=== PATIENT | female | born 1970 | race American Indian/Alaskan Native ===

== ENCOUNTER 2017-01-23 18:38 | Inpatient (IN) | payer MEDICARE, MEDICAID ==
[2017-01-23 18:38] VITALS: BMI 41.1
[2017-01-23 19:29] LABS: BASO # 0.03 K/mm3 (0.0-2.0); BASO % 0.5 % (0.0-3.0); EOS # 0.3 (0.0-0.7); EOS % 4.8 % (1.5-5.0); GRAN # 3.89 (1.4-6.5); GRAN % 59.7 % (50.0-68.0); HEMATOCRIT 36.3 % (36.0-48.0); LYMPH # 1.7 (1.2-3.4); LYMPH % 26.5 % (22.0-35.0); MEAN CELL VOLUME 80.5 fl (80.0-105.0); MEAN CORPUSCULAR HEMOGLOBIN 25.3 pg (25.0-35.0); MEAN CORPUSCULAR HGB CONC 31.4 g/dl (31.0-37.0); MONO # 0.6 (0.1-0.6); MONO % 8.5 % (1.0-6.0); RED CELL DISTRIBUTION WIDTH 15.6 % (11.5-14.5); WHITE BLOOD COUNT 6.5 10^3/ul (4.5-11.0)
[2017-01-23 19:41] LABS: BLOOD UREA NITROGEN 9 mg/dL (7-21); CALCIUM 8.7 mg/dL (8.4-10.5); CARBON DIOXIDE 20 mmol/L (21-33); CHLORIDE 109 mmol/L (98-107); GFR AFRICAN-AMERICAN > 60; GLUCOSE,RANDOM 99 mg/dL (70-110); POTASSIUM 4.5 mmol/L (3.6-5.0); SODIUM 138 mmol/L (132-148)
[2017-01-23 19:44] LABS: INR 1.04 (0.93-1.08); PARTIAL THROMBOPLASTIN TIME 34.2 Seconds (25.1-36.5)
[2017-01-23] MEDS: Albuterol-Ipratrop 3 mg / 0.5 (3 ml) UD IH SCH ×3 (19:44→20:31)
--- NOTE | 2017-01-23 19:45 | ED PDOC ---
Arrival/HPI - General Chief Complaint: Chest Pain Time Seen by Provider: 01/23/17 19:01 Historian: Patient - History of Present Illness Narrative History of Present Illness (Text): 01/23/17 19:05 A 46 year old female, whose past medical history includes Lupus, COPD, asthma, renal failure, Raynaud's phenomenon, spinal stenosis, psychosis, DVT with IVC filter, presents to the emergency department complaining of wheezing, cough, shortness of breath, and post tussive chest pain for 6 days. Patient reports she visited Urgent Care today and was treated, although patient still had symptoms. Patient was to be admitted but she refused and left. Patient attempted to use nebulizer treatments at home but had little to no relief and decided to come here instead. Patient notes also experiencing some body aches and chills, but denies of any fever, or any other complaints at this time. PMD: Dr. Jordna Time/Duration: < week (6 days) Symptom Onset: Sudden Symptom Course: Unchanged Past Medical History - Provider Review Nursing Documentation Reviewed: Yes - Infectious Disease Hx of Infectious Diseases: None - Tetanus Immunization Tetanus Immunization: Up to Date - Reproductive Menopause: No - Cardiac Hx Cardiac Disorders: No Hx Pacemaker: No - Pulmonary Hx Respiratory Disorders: Yes Hx Asthma: Yes Hx Chronic Obstructive Pulmonary Disease (COPD): Yes - Neurological Hx Neurological Disorder: No Hx Paralysis: No - HEENT Hx HEENT Disorder: No - Renal Hx Renal Disorder: Yes Hx Renal Failure: Yes - Endocrine/Metabolic Hx Endocrine Disorders: Yes Hx Systemic Lupus Erythematosus: Yes - Hematological/Oncological Hx Blood Disorders: Yes Hx Anemia: Yes Hx Blood Transfusions: Yes (2014 WITH PERIODIC IRON INFUSIONS) Hx Blood Transfusion Reaction: No - Integumentary Hx Dermatological Disorder: No - Musculoskeletal/Rheumatological Hx Musculoskeletal Disorders: Yes Hx Falls: Yes - Gastrointestinal Hx Gastrointestinal Disorders: Yes Hx Gall Bladder Disease: Yes Hx Gastroesophageal Reflux: Yes - Genitourinary/Gynecological Hx Genitourinary Disorders: No - Psychiatric Hx Psychophysiologic Disorder: Yes Hx Anxiety: Yes Hx Depression: Yes Hx Emotional Abuse: No Hx Physical Abuse: No Hx Substance Use: No - Surgical History Hx Section: Yes Hx Gastric Bypass Surgery: Yes (2003) Hx Tubal Ligation: Yes Other/Comment: R chest port - Anesthesia Hx Anesthesia: Yes Hx Anesthesia Reactions: No Hx Malignant Hyperthermia: No - Suicidal Assessment Feels Threatened In Home Enviroment: No Family/Social History - Physician Review Nursing Documentation Reviewed: Yes Family/Social History: No Known Family HX Smoking Status: Light Smoker < 10 Cigarettes Daily Hx Alcohol Use: No Hx Substance Use: No Hx Substance Use Treatment: No Allergies/Home Meds Allergies/Adverse Reactions: Allergies No Known Allergies Allergy (Verified 01/23/17 18:53) per patient Home Medications: Home Meds Medication Instructions Recorded Confirmed Vilazodone HCl [Viibryd] 40 mg PO QAM 01/30/12 01/23/17 Methocarbamol [Robaxin] 500 mg PO DAILY PRN 02/07/12 01/23/17 cloNIDine 0.1 mg/24 hr [catapres 0.1 mg TD MON 07/18/12 01/23/17 TTS1 0.1 mg/24 hr] Tizanidine HCl [Zanaflex] 4 mg PO TID 07/30/12 01/23/17 Furosemide [Lasix] 40 mg PO BID 04/10/15 01/23/17 Mycophenolate Mofetil [Cellcept] 500 mg PO BID 04/10/15 01/23/17 Pregabalin [Lyrica] 200 mg PO TID 04/10/15 01/23/17 Quetiapine Fumarate [Seroquel] 200 mg PO HS 04/10/15 01/23/17 Scopolamine [Transderm Scop] 1 patch TD Q72H 04/10/15 01/23/17 Sucralfate [Carafate] 1 gm PO ACHS 04/10/15 01/23/17 Ondansetron [Zofran Odt] 4 mg SL Q6 PRN 01/23/17 01/23/17 Review of Systems - Review of Systems Constitutional: Night Sweats. absent: Fevers Respiratory: SOB, Cough, Wheezing Cardiovascular: Chest Pain (post tussive) Musculoskeletal: Myalgias Physical Exam Vital Signs Reviewed: Yes Vital Signs Temp Pulse Resp BP Pulse Ox 01/23/17 21:01 93 H 19 147/94 H 98 01/23/17 18:50 99.9 F H 98 H 16 159/108 H 95 Temperature: Afebrile Blood Pressure: Normal Pulse: Regular Respiratory Rate: Normal Appearance: Positive for: Other (obese) Pain Distress: None Mental Status: Positive for: Alert and Oriented X 3 - Systems Exam Head: Present: Atraumatic, Normocephalic Pupils: Present: PERRL Extroacular Muscles: Present: EOMI Conjunctiva: Present: Normal Mouth: Present: Moist Mucous Membranes Neck: Present: Normal Range of Motion Respiratory/Chest: Present: Wheezes, Rhonchi (bilaterally), Other (chest wall port) Cardiovascular: Present: Regular Rate and Rhythm, Normal S1, S2. No: Murmurs Abdomen: Present: Normal Bowel Sounds. No: Tenderness, Distention, Peritoneal Signs Back: Present: Normal Inspection Upper Extremity: Present: Normal Inspection. No: Cyanosis, Edema Lower Extremity: No: Edema Neurological: Present: GCS=15, CN II-XII Intact, Speech Normal Skin: Present: Warm, Dry, Normal Color. No: Rashes Psychiatric: Present: Alert, Oriented x 3, Normal Insight, Normal Concentration Medical Decision Making ED Course and Treatment: 01/23/17 19:09 Impression 46 year old female with wheezing, cough, shortness of breath, and chest pain. Physical exam shows patient appears obese, wheezing and rhonchi bilaterally, chest wall port, no lower extremity edema. Differential Diagnosis included but are not limited to: COPD Exacerbation Plan: -- EKG -- Chest X-ray -- Labs -- Blood Culture -- Urinalysis -- Duoneb -- Medrol -- Reassess and disposition Prior Visits: Notes and results from previous visits were reviewed. Patient was last seen in the emergency department on 04/20/2016 for nausea and non-bilious non-bloody vomiting. Patient was discharged home. Progress Notes: Patient improved with treatments but still having symptoms. CXR negative for PNA. Case discussed with Dr. Jordan who will admit under her service for COPD exacerbation. Patient is a known COPD patient with multiple medical issues that needs more than 3 days admission. - Lab Interpretations Lab Results: 01/23/17 19:09 01/23/17 19:09 Lab Results 01/23/17 20:07: Urine Color Yellow, Urine Appearance Clear, Urine pH 6.0, Ur Specific [place] >= 1.030, Urine Protein 100 H, Urine Glucose (UA) Negative, Urine Ketones Negative, Urine Blood Large H, Urine Nitrate Negative, Urine Bilirubin Negative, Urine Urobilinogen 0.2, Ur Leukocyte Esterase Negative, Urine RBC 5 - 10, Urine WBC 1 - 3, Ur Epithelial Cells 10 - 12, Urine Bacteria Large 01/23/17 19:09: Sodium 138, Potassium 4.5, Chloride 109 H, Carbon Dioxide 20 L, Anion Gap 14, BUN 9, Creatinine 1.1, Est GFR ( Amer) > 60, Est GFR (Non- Af Amer) 54, Random Glucose 99, Calcium 8.7, Lactate Dehydrogenase 630, Total Creatine Kinase 188, Troponin I < 0.01, NT-Pro-B Natriuret Pep 165 01/23/17 19:09: PT 11.3, INR 1.04, APTT 34.2 01/23/17 19:09: WBC 6.5, RBC 4.51, Hgb 11.4 L, Hct 36.3, MCV 80.5, MCH 25.3, MCHC 31.4, RDW 15.6 H, Plt Count 248, MPV 11.0, Gran % 59.7, Lymph % (Auto) 26.5 , [place] % (Auto) 8.5 H, Eos % (Auto) 4.8, Baso % (Auto) 0.5, Gran # 3.89, Lymph # 1.7, Am[place] # 0.6, Eos # 0.3, Baso # 0.03 - RAD Interpretation Radiology Orders: 01/23/17 19:23 CHEST PORTABLE [RAD] Stat - Medication Orders Current Medication Orders: Acetaminophen (Tylenol 325mg Tab) 650 mg PO Q4H PRN PRN Reason: Pain, Mild (1-3) Albuterol/Ipratropium (Duoneb 3 Mg/0.5 Mg (3 Ml) Ud) 3 ml IH Q3H PRN PRN Reason: Shortness of Breath Clonidine HCl (Catapres Tts1 0.1 Mg/24 Hr) 1 patch TD MON [facility] Famotidine (Pepcid) 20 mg PO AC [facility] Furosemide (Lasix) 40 mg PO BID [facility] Azithromycin 500 mg/ Sodium (Chloride) 250 mls @ 250 mls/hr IVPB DAILY [facility] PRN Reason: Protocol Stop: 01/31/17 10:01 Methylprednisolone (Solu-Medrol) 40 mg IVP Q12 [facility] Last Admin: 01/23/17 21:58 Dose: 40 mg IVP Administration Document 01/23/17 21:58 SWE (Rec: 01/23/17 21:58 SWE [id number]) Charges for Administration # of IVP Administrations 1 Mycophenolate Mofetil (Cellcept Cap) 500 mg PO BID [facility] Non-Formulary Medication (Vilazodone Hcl [Viibryd]) 40 mg PO QAM [facility] Ondansetron HCl (Zofran Odt) 4 mg SL Q6 PRN PRN Reason: Nausea/Vomiting Ondansetron HCl (Zofran Inj) 4 mg IVP Q4H PRN PRN Reason: Nausea/Vomiting Pantoprazole Sodium (Protonix Ec Tab) 40 mg PO DAILY [facility] Pregabalin (Lyrica) 200 mg PO TID [facility] Quetiapine Fumarate (Seroquel) 200 mg PO HS [facility] Last Admin: 01/23/17 21:57 Dose: 200 mg Scopolamine (Transderm-Scop) 1 patch TD Q72H [facility] Last Admin: 01/23/17 21:58 Dose: 1 patch MAR Transdermal Patch Site Document 01/23/17 21:58 SWE (Rec: 01/23/17 21:58 [id number] Transdermal Patch Site Transdermal Patch Site Behind Left Ear Sucralfate (Carafate Tab) 1 gm PO ACHS [facility] Last Admin: 01/23/17 21:56 Dose: 1 gm Discontinued Medications Albuterol/Ipratropium (Duoneb 3 Mg/0.5 Mg (3 Ml) Ud) 3 ml IH Q15M [facility] Stop: 01/23/17 20:01 Last Admin: 01/23/17 20:31 Dose: 3 ml Methylprednisolone (Solu-Medrol) 125 mg IVP STAT STA Stop: 01/23/17 19:24 Last Admin: 01/23/17 20:07 Dose: 125 mg IVP Administration Document 01/23/17 20:07 SE (Rec: 01/23/17 20:07 SE [id number]) Charges for Administration # of IVP Administrations 1 - Scribe Statement The provider has reviewed the documentation as recorded by the Isai Wells Provider Scribe Attestation: All medical record entries made by the Scribe were at my direction and personally dictated by me. I have reviewed the chart and agree that the record accurately reflects my personal performance of the history, physical exam, medical decision making, and the department course for this patient. I have also personally directed, reviewed, and agree with the discharge instructions and disposition. Disposition/Present on Arrival - Present on Arrival Any Indicators Present on Arrival: No History of DVT/PE: No History of Uncontrolled Diabetes: No Urinary Catheter: No History of Decub. Ulcer: No History Surgical Site Infection Following: CABG - Mediastinitis, None - Disposition Have Diagnosis and Disposition been Completed?: Yes Diagnosis: COPD (chronic obstructive pulmonary disease) Disposition: HOSPITALIZED Disposition Time: 20:16 Patient Plan: Admission Condition: FAIR
[2017-01-23 19:50] LABS: TROPONIN I < 0.01 ng/mL
[2017-01-23 20:33] LABS: URINE BILIRUBIN NEGATIVE (NEGATIVE); URINE BLOOD LARGE (NEGATIVE); URINE GLUCOSE (UA) NEGATIVE (NEGATIVE); URINE KETONE NEGATIVE (NEGATIVE); URINE LEUKOCYTE ESTERASE NEGATIVE Leu/uL (NEGATIVE); URINE PROTEIN 100 mg/dL (<30 mg/dL); URINE UROBILINOGEN 0.2 E.U./dL (<1 E.U./dL)
[2017-01-23 20:37] LABS: URINE APPEARANCE CLEAR (CLEAR); URINE COLOR YELLOW (YELLOW)
[2017-01-23 20:48] LABS: URINE BACTERIA LARGE (NEG)
[2017-01-23] MEDS ORDERED: Albuterol-Ipratrop 3 mg / 0.5 (3 ml) UD IH PRN (21:06)
[2017-01-23 21:53] LABS: IRON 37 ug/dL (45-180)
[2017-01-23] MEDS: MethylPREDNISolone 40 mg Vial IVP SCH (21:58)
[2017-01-23] MEDS ORDERED: QUETIAPINE FUMARATE 200 MG PO SCH (22:00)
--- NOTE | 2017-01-24 03:13 | HP ---
CHIEF COMPLAINT: Chest pain and shortness of breath. HISTORY OF PRESENT ILLNESS: Ms. Josie Hurst is a 46-year-old female with past medical history of lupus, COPD, asthma, renal failure, Raynaud's phenomenon, spinal stenosis, psychosis, and DVT with IVC filter, who came to the Emergency Department complaining of wheezing, coughing, shortness of breath, and chest pain with coughing. The patient has these symptoms from 6 days. The patient reports that she visited Urgent Care Center today and was treated, although the patient still had symptoms. The patient was referred from urgent care to the hospital, nearest hospital was [facility], but the patient refused to go to [facility]. The patient came by private car in [facility]. Still complaining of shortness of breath, I saw her in the emergency room. The patient is feeling body aches. No fever. No chills. No nausea, vomiting or diarrhea. PAST MEDICAL HISTORY: COPD, asthma, renal failure, lupus erythematosus, anemia status post blood transfusion, history of GERD, dyspepsia, anxiety, depression, section, gastric bypass surgery in 2003, tubal ligation, has right chest port. FAMILY HISTORY: Father and mother noncontributory. HABITS: Smoking less than 10 cigarettes a day. Alcohol, no. Substance abuse, no. ALLERGIES: THE PATIENT IS NOT ALLERGIC WITH ANY MEDICATION. HOME MEDICATIONS: Viibryd, clonidine, Zanaflex, Lasix, CellCept, Lyrica, Seroquel ,scopolamine, Carafate, and Zofran. REVIEW OF SYSTEMS: The patient was examined on the bedside in the emergency room. Still coughing. Heavy shortness of breath and wheezing, complaining about night sweats, but no fever at this moment. Chest pain with coughing posttussive, feeling myalgia. No hematuria. No hematochezia. No urinary symptoms. PHYSICAL EXAMINATION: VITAL SIGNS: Temperature 98.9, pulse 98, respiratory rate 16, blood pressure 159/108, and pulse oxymetry 95%. HEENT: Head is normocephalic and atraumatic. Eyes, PERRLA. Extraocular muscles are intact, conjunctivae clear. Nose is patent. Mucous membranes moist. NECK: Supple. No carotid bruits. No JVD or thyromegaly. CHEST: Bilaterally symmetrical. HEART: S1 and S2 positive. LUNGS: Positive wheezing bilaterally. ABDOMEN: Soft. Bowel sounds present. No organomegaly. EXTREMITIES: No edema. No cyanosis. NEUROLOGIC: The patient is awake and alert. Moving all 4 extremities. No focal deficits. LABORATORY DATA: White blood cells 6.5, hemoglobin 11.4, hematocrit 36.3, and platelets 248. Sodium 138, potassium 4.5, BUN 9, creatinine 1.1, and glucose 99. ASSESSMENT AND PLAN: Ms. Josie Hurst is a 46-year-old female with a history of multiple medical problems came in with exacerbation of chronic obstructive pulmonary disease, and asthma, got treatment in Urgent [facility] Center near [facility], but they referred the patient to ER has history of lupus, chronic obstructive pulmonary disease, asthma, renal failure, Raynaud's phenomenon, spinal stenosis, psychosis, deep vein thrombosis with inferior vena cava filter, history of narcotic abuse, history of gastric bypass, history of anemia with periodic blood transfusion and iron infusion. We admitted the patient, started on medication plus antibiotics plus DuoNeb. Gastrointestinal and deep venous thrombosis prophylaxis. Repeat labs. We will follow. Emelina Jordan MD MTDWill
[2017-01-24 06:55] LABS: HEMATOCRIT 35.4 % (36.0-48.0); MEAN CELL VOLUME 79.4 fl (80.0-105.0); MEAN CORPUSCULAR HEMOGLOBIN 25.1 pg (25.0-35.0); MEAN CORPUSCULAR HGB CONC 31.6 g/dl (31.0-37.0); MEAN PLATELET VOLUME 10.2 fl (7.0-11.0); RED CELL DISTRIBUTION WIDTH 15.5 % (11.5-14.5); WHITE BLOOD COUNT 4.4 10^3/ul (4.5-11.0)
[2017-01-24] MEDS ORDERED: RANITIDINE HCL 150 MG PO SCH (07:30)
[2017-01-24 07:32] LABS: BLOOD UREA NITROGEN 11 mg/dL (7-21); CALCIUM 9.1 mg/dL (8.4-10.5); CARBON DIOXIDE 21 mmol/L (21-33); CHLORIDE 110 mmol/L (98-107); GFR AFRICAN-AMERICAN > 60; GLUCOSE,RANDOM 148 mg/dL (70-110); POTASSIUM 5.3 mmol/L (3.6-5.0); SODIUM 138 mmol/L (132-148)
--- NOTE | 2017-01-24 08:51 | RAD ---
HISTORY: cough r/o pna COMPARISON: 06/03/2015 FINDINGS: LUNGS: No active pulmonary disease. PLEURA: No significant pleural effusion identified, no pneumothorax apparent. CARDIOVASCULAR: Right central venous infusion port. Normal heart size. No congestive change. OSSEOUS STRUCTURES: No significant abnormalities. VISUALIZED UPPER ABDOMEN: Normal. OTHER FINDINGS: None. IMPRESSION: No active disease.
[2017-01-24] MEDS ORDERED: PREGABALIN 200 MG PO SCH (10:00)
[2017-01-24] MEDS ORDERED: Azithromycin 500 MG in Sodium Chloride 0.9% 250 ML IVPB SCH (10:00)
[2017-01-24] MEDS ORDERED: VILAZODONE HCL 40 MG PO SCH (10:00)
[2017-01-24] MEDS ORDERED: MYCOPHENOLATE MOFETIL 500 MG PO SCH (10:00)
[2017-01-24] MEDS ORDERED: Azithromycin 500MG/NS 250ml 500 MG/250 ML BAG IVPB SCH (10:00)
[2017-01-24] MEDS: Pantoprazole 40 mg EC Tab PO SCH (11:33)
[2017-01-24] MEDS: MethylPREDNISolone 40 mg Vial IVP SCH ×2 (11:34→21:16)
[2017-01-24] MEDS ORDERED: Sod Polystyrene Sulf 15 gm/60 ml Susp PO ONE (13:34)
[2017-01-24 13:39] LABS: FOLATE 8.3 ng/mL
[2017-01-24] MEDS: Enoxaparin 40 mg Syringe SC SCH (14:35)
--- NOTE | 2017-01-24 15:52 | IP.NPCORE ---
COPD Progress Note - COPD Progress Note Spirometry Assessment Completed:: No Plan to assess at outpatient follow up: Yes Symptoms:: Increase in Dyspnea, Cough Initial CXR:: normal Date:: 01/23/17 Time:: 19:25 Oxygen Saturation/Pulse Oximetry:: 94 Nebulizers Q2-4 hrs:: Duonebs/Albuterol Therapy Antibiotics (Name/Dose/Frequency):: azithromycin 500 mg daily Antibiotics Not Indicated: Yes Systemic Steroids w/ methylprednisolone Name/Dose/Frequency:: solumedrol 40 mg q12 Oxygen Delivery Method: Nasal Cannula Oxygen Flow Rate: 2 Smoking cessation counseling all stages copd exacerbation: Yes
--- NOTE | 2017-01-24 16:09 | PN ---
DATE: 01/24/2017 SUBJECTIVE: The patient is a 46-year-old female. The patient is seen and examined at the bedside, looking comfortable, still coughing but better. Shortness of breath is better. No nausea or vomiting. Complaining about chest pain with coughing, looks like muscular. No hematuria or hematochezia. No headache. No dizziness. No fever. No chills. PHYSICAL EXAMINATION: VITAL SIGNS: Temperature 97.5, pulse 88, blood pressure 155/96, respiratory rate 18. HEENT: Head is normocephalic and atraumatic. Eyes; PERRLA. Extraocular muscles are intact. Conjunctivae clear. Nose patent. Mucous membranes moist. NECK: Supple. No carotid bruit, JVD or thyromegaly. CHEST: Bilaterally symmetrical. HEART: S1 and S2 positive. LUNGS: Clear to auscultation. ABDOMEN: Soft. Bowel sounds present. No organomegaly. EXTREMITIES: No edema. No cyanosis. NEUROLOGIC: The patient is awake and alert. Moving all 4 extremities. No focal deficits. MEDICATIONS: Carafate, Catapres, CellCept, albuterol, DuoNeb, Lasix, Lyrica, NS, Protonix, methylprednisolone, Tylenol, tramadol, erythromycin, Zofran. LABORATORY DATA: White blood cell 12.4, hemoglobin 11.2, hematocrit 35.4, platelets 247. Sodium 138, potassium 5.3, BUN 11, creatinine 1.1, glucose 148. ASSESSMENT AND PLAN: Ms. Josie Hurst is a 46-year-old lady with leukopenia, anemia, hyperkalemia, hyperchloremia, hyperglycemia, iron deficiency, hypertriglyceridemia, hyperthyroidism, proteinuria, hematuria. Has multiple medical problems, came with exacerbation of chronic obstructive lung disease, asthma, got treatment in urgent care, failed outpatient, came in to [facility]. Has history of renal insufficiency, Raynaud phenomenon, spinal stenosis, psychosis, history of drug abuse, deep vein thrombosis with inferior vena cava filter, obesity, history of gastric bypass, anemia, status post blood transfusion. Getting antibiotics. Obstetrician And Gynaecologist on the case. Getting pain medication for musculoskeletal pain. Gastrointestinal and deep venous thrombosis prophylaxis. Out of bed, physical therapy, we will follow up. Emelina Jordan MD [facility] # [phone]
[2017-01-24] MEDS: TraMADol/Apap 37.5/325 mg Tab PO PRN (18:09)
--- NOTE | 2017-01-24 20:04 | CARD ---
APPROVED REPORT EKG Measurement Heart [id number] OR [id number] <Conclusion> Sinus tachycardia Otherwise normal ECG
--- NOTE | 2017-01-25 07:14 | CON ---
DATE: 01/24/2017 PULMONARY CONSULTATION REFERRING PHYSICIAN: Emelina Jordan MD REASON FOR CONSULTATION: Cough and shortness of breath at. 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 PAST MEDICAL HISTORY: As per history of present illness. ALLERGIES: NONE KNOWN. SOCIAL HISTORY: Still active smoker. Denies any alcohol use. FAMILY HISTORY: No significant cardiopulmonary disease reported. MEDICATIONS: She is on Carafate 1 g a.c. and at bedtime, Catapres patch 0.1 mg weekly, Cellcept 500 mg twice a day, DuoNeb q. 3 hours. p.r.n., Lasix 40 mg twice a day, Lovenox 40 mg daily, Lyrica 200 mg three times a day, Pepcid 20 mg a.c., Protonix 40 mg daily, Seroquel 200 mg at bedtime, Solu-Medrol 40 mg q. 12 hours., scopolamine patch q. 72 hours., Tylenol p.r.n., Ultracet 37.5/325 mg one tablet q. 6 hours. p.r.n., Zithromax 500 mg daily, and Zofran p.r.n. basis. REVIEW OF SYSTEMS: No headache and no rhinitis. Has a cough, sputum production, short of breath, and chest tightness. No nausea or abdominal pain. No dysuria. No leg pain and no leg swelling. PHYSICAL EXAMINATION: GENERAL: Sitting side of the bed with mild cough. VITAL SIGNS: Temperature is 98, heart rate is 73, respiratory rate is 20, blood pressure is 143/85, and pulse oximetry is 96% on 2 liters nasal cannula. HEENT: Moist mucous membranes. Crowded airway. Mallampati score is 4. NECK: Supple. No JVD. LUNGS: Has a prolonged expiratory phase with wheezing. HEART: S1 and S2. ABDOMEN: Soft, nontender, and nondistended. EXTREMITIES: No edema. NEUROLOGIC: Alert, awake and follows simple commands. LABORATORY DATA: Shows hemoglobin of 11.2, hematocrit of 35.4, WBC of 4.4, and platelet is 247. INR is 1.04 and PTT is 34. Sodium is 138, potassium is 4.3, chloride is 110, bicarbonate is 21, BUN is 11, creatinine is 1.1, glucose is 148, hemoglobin A1c is 5.6, and calcium is 9.1. TSH is 0.31. Urine cultures wbc's 0.23 and large bacteria. Microbiology, blood culture has been negative. DIAGNOSTIC DATA: Chest x-ray Done on admission shows no active pulmonary disease. IMPRESSION AND PLAN: Chronic obstructive lung disease, history of gastric bypass surgery with recurrent duodenal ulcer, history of gastroesophageal reflux disease, lupus, anemia, anxiety disorder, depression, and history of chronic pain syndrome. I agree with Dr. Jordan with the present management. Continue steroids and continue inhaled bronchodilator. We will add Zithromax 500 mg daily. Continue gastric prophylaxis lower extremity. The patient is urged to stop smoking. Thank you and we will follow with you. Nicolle Pollack MD
[2017-01-25 07:38] LABS: CALCIUM 9.2 mg/dL (8.4-10.5); POTASSIUM 3.9 mmol/L (3.6-5.0)
[2017-01-25 07:52] LABS: HEMATOCRIT 36.7 % (36.0-48.0); MEAN CELL VOLUME 80.8 fl (80.0-105.0); MEAN CORPUSCULAR HEMOGLOBIN 25.6 pg (25.0-35.0); MEAN CORPUSCULAR HGB CONC 31.6 g/dl (31.0-37.0); MEAN PLATELET VOLUME 11.1 fl (7.0-11.0); RED CELL DISTRIBUTION WIDTH 15.6 % (11.5-14.5)
[2017-01-25] MEDS: VIIBRYD 40 MG PO SCH (09:29)
[2017-01-25] MEDS: Pantoprazole 40 mg EC Tab PO SCH (09:31)
[2017-01-25] MEDS: MethylPREDNISolone 40 mg Vial IVP SCH ×2 (09:32→22:05)
[2017-01-25] MEDS: Enoxaparin 40 mg Syringe SC SCH (09:32)
[2017-01-25] MEDS ORDERED: Oxycodone/Acetaminophen 5/325 mg Tab PO ONE (11:27)
[2017-01-25] MEDS ORDERED: Vancomycin 1gm in NS 250ml 1 GM/250 ML BAG IVPB SCH (14:15)
[2017-01-25] MEDS: TraMADol/Apap 37.5/325 mg Tab PO PRN (16:40)
[2017-01-25] MEDS: POLYETHYLENE GLYCOL 3350 17 GM/Dose PACKET PO SCH (18:48)
--- NOTE | 2017-01-25 19:52 | PN ---
DATE: 01/25/2017 PULMONARY PROGRESS NOTE REFERRING PHYSICIAN: Emelina Jordan MD SUBJECTIVE: She is sitting up in a bed. Overall, feels better. Complaining about aches and pains. Still has some cough and sputum production. No nausea. No vomiting. No diarrhea. No leg pain. No leg swelling. OBJECTIVE: GENERAL: In no acute distress. VITAL SIGNS: Temperature is 99, heart rate is 73, respiratory rate is 20, blood pressure 143/80, pulse oximetry is 96% on room air. HEENT: Moist mucous membrane. Carotid airway. Mallampati score is IV. NECK: Supple. No JVD. LUNGS: Has a fair airflow with scattered rhonchi and few wheezing. HEART: S1 and S2. ABDOMEN: Soft and nontender. No organomegaly. EXTREMITIES: No edema. NEUROLOGIC: Awake and alert. Follows simple commands. MEDICATIONS: She is on Carafate 1 g a.c. and at bedtime, Catapres patch weekly, Cellcept 500 mg twice a day, DuoNeb q. 3 hours p.r.n., Lasix 40 mg twice day, Lovenox 40 mg daily, Lyrica 200 mg 3 times a day, Pepcid 20 mg daily, Protonix 40 mg daily, Seroquel 200 mg at bedtime, Solu-Medrol 20 mg q. 12 hours transdermal, scopolamine patch q. 72 hours, Tylenol p.r.n., Ultracet 37.5/325 one tablet q. 6 hours p.r.n., vancomycin 1 g q. daily, Zithromax 500 mg daily, Zofran p.r.n. basis, received one dose of Percocet. LABORATORY DATA: Shows, hemoglobin 11.6, hematocrit 36.7, WBC 8.0, platelets is 274. Sodium 141, potassium 3.9, chloride 109, bicarbonate 22, BUN 18, creatinine 1.2, glucose is 128, calcium is 9.2. TSH is 0.31. Blood cultures 1 out of 2 has a Gram-positive cocci. IMPRESSION AND PLAN: Chronic obstructive lung disease, history of gastric bypass surgery, recurrent duodenal ulcers, history of gastroesophageal reflux disease, lupus, anemia, anxiety disorder, depression, history of chronic pain syndrome, history of opioid dependence, which she has been tapering off early this year, has one blood culture positive Gram-positive cocci, slightly contaminated. We will repeat blood culture. Spoke to nursing staff. pain medications. Continue IV inhaled bronchodilator. Thank you and we will follow with you. Nicolle Pollack MD
[2017-01-26] MEDS: TraMADol/Apap 37.5/325 mg Tab PO PRN ×3 (03:23→20:27)
[2017-01-26 05:57] LABS: HEMATOCRIT 36.3 % (36.0-48.0); MEAN CORPUSCULAR HEMOGLOBIN 25.2 pg (25.0-35.0); MEAN CORPUSCULAR HGB CONC 31.1 g/dl (31.0-37.0); MEAN PLATELET VOLUME 9.8 fl (7.0-11.0); RED CELL DISTRIBUTION WIDTH 15.8 % (11.5-14.5); WHITE BLOOD COUNT 7.7 10^3/ul (4.5-11.0)
[2017-01-26 06:56] LABS: ALB/GLOB RATIO 1.1 (1.1-1.8); BILIRUBIN,TOTAL 0.3 mg/dL (0.2-1.3); POTASSIUM 4.2 mmol/L (3.6-5.0); TOTAL PROTEIN 7.6 g/dL (5.8-8.3)
--- NOTE | 2017-01-26 08:37 | PN ---
DATE: 01/25/2017 SUBJECTIVE: The patient is a 46-year-old female. The patient was seen and examined at the bedside, looking comfortable. Still coughing, shortness of breath, wheezing. No fever. No chills. Having chest pain with coughing. No hematuria or hematochezia. PHYSICAL EXAMINATION: VITAL SIGNS: Temperature 97.7, pulse 82, blood pressure 115/98, respiratory rate 18. HEENT: Head, normocephalic and atraumatic. Eyes, PERRLA. Extraocular muscles intact. Conjunctivae are clear. Nose is patent. Mucous membranes are moist. NECK: Supple. No carotid bruits. No JVD or thyromegaly. CHEST: Bilaterally symmetrical. HEART: S1 and S2 positive. LUNGS: Clear to auscultation. ABDOMEN: Soft. Bowel sounds positive. No organomegaly. EXTREMITIES: No edema. No cyanosis. NEUROLOGIC: The patient is awake and alert. Moving all 4 extremities. No focal deficit. MEDICATIONS: Carafate, clonidine, CellCept, DuoNeb, Lasix, Lovenox, Lyrica, Protonix, Seroquel, methylprednisolone, acetaminophen, and vancomycin. LABORATORY DATA: White blood cells 6.0, hemoglobin 11.6, hematocrit 36.7, platelets 272. Sodium 141, potassium 3.9, BUN 18, creatinine 1.2, glucose 128. ASSESSMENT AND PLAN: a 46-year-old lady with history of leukopenia improved, anemia, hyperchloremia, diabetes mellitus, hypertriglyceridemia, hyperthyroidism, proteinuria, hematuria, has history of multiple medical problems, history of gastric bypass surgery in the remote past, history of opioid and benzodiazepine dependency, history of lupus, chronic lung disease, renal insufficiency , history of DVT requiring IVC filter, history of recurrent anemia status post blood transfusion, obesity, history of recurrent duodenal ulcers, gastroesophageal reflux disease. The patient is getting azithromycin, bronchodilators, Solu-Medrol. According to her, tramadol is not helping her for chest pain. I gave her single dose of Percocet and advised no more Percocet. GI and DVT prophylaxis. We will follow up. Emelina Jordan MD [facility] # [id number] [facility]
[2017-01-26] MEDS: MethylPREDNISolone 40 mg Vial IVP SCH ×2 (09:01→22:03)
[2017-01-26] MEDS: Enoxaparin 40 mg Syringe SC SCH (09:02)
[2017-01-26] MEDS: POLYETHYLENE GLYCOL 3350 17 GM/Dose PACKET PO SCH (09:02)
[2017-01-26] MEDS: Pantoprazole 40 mg EC Tab PO SCH (09:04)
[2017-01-26] MEDS: VIIBRYD 40 MG PO SCH (09:06)
--- NOTE | 2017-01-26 12:14 | CP.PCM.CON ---
History of Present Illness - History of Present Illness History of Present Illness: 46 year old female with PMH of SLE, COPD, Raynaud's phenomenon, chronic renal failure, spinal stenosis, history of DVT S/P IVC filter placement chronic anemia on intermittent iron transfusion therapy, GERD, S/P gastric bypass surgery, S/P right port-a-cath placement, morbid obesity with BMI 43 was initially admitted in [facility] because of cough and shortness of breath and is being treated for COPD exacerbation. She is doing well now with treatment for her COPD. Blood cx were taken as part of the admission work up and is now showing coagulase negative staph in 3 out of 4 bottles. Infectious diseases consult is requested to further evaluate and manage. As per patient, she has been to another hospital 2 other times, the last one in 2016 and she was also found to have bacteria in the blood in the "family of MRSA." She was given antibiotics then. She currently denies cough or colds, no shortness of breath at rest, no fever or chills, no nausea or vomiting, no chest pain, no pain at the port site, no abdominal pain, no diarrhea, no dysuria. Review of Systems - Review of Systems All systems: reviewed and no additional remarkable complaints except (as per HPI ) Past Patient History - Infectious Disease Hx of Infectious Diseases: None - Tetanus Immunizations Tetanus Immunization: Up to Date - Past Social History Smoking Status: Light Smoker < 10 Cigarettes Daily - CARDIAC Hx Cardiac Disorders: No Hx Pacemaker: No - PULMONARY Hx Respiratory Disorders: Yes Hx Asthma: Yes Hx Chronic Obstructive Pulmonary Disease (COPD): Yes - NEUROLOGICAL Hx Neurological Disorder: No Hx Paralysis: No - HEENT Hx HEENT Problems: No - RENAL Hx Chronic Kidney Disease: Yes Hx Renal Failure: Yes - ENDOCRINE/METABOLIC Hx Endocrine Disorders: Yes Hx Systemic Lupus Erythematosus: Yes - HEMATOLOGICAL/ONCOLOGICAL Hx Blood Disorders: Yes Hx Anemia: Yes Hx Blood Transfusions: Yes (2014 WITH PERIODIC IRON INFUSIONS) Hx Blood Transfusion Reaction: No - INTEGUMENTARY Hx Dermatological Problems: No - MUSCULOSKELETAL/RHEUMATOLOGICAL Hx Musculoskeletal Disorders: Yes Hx Falls: Yes - GASTROINTESTINAL Hx Gastrointestinal Disorders: Yes Hx Gall Bladder Disease: Yes Hx Gastroesophageal Reflux: Yes - GENITOURINARY/GYNECOLOGICAL Hx Genitourinary Disorders: No - PSYCHIATRIC Hx Psychophysiologic Disorder: Yes Hx Anxiety: Yes Hx Depression: Yes Hx Emotional Abuse: No Hx Physical Abuse: No Hx Substance Use: No - SURGICAL HISTORY Hx Section: Yes Hx Gastric Bypass Surgery: Yes (2003) Hx Tubal Ligation: Yes Other/Comment: R chest port - ANESTHESIA Hx Anesthesia: Yes Hx Anesthesia Reactions: No Hx Malignant Hyperthermia: No Meds Allergies/Adverse Reactions: Allergies Allergy/AdvReac Type Severity Reaction Status Date / Time No Known Allergies Allergy Verified 01/23/17 18:53 - Medications Medications: Current Medications Acetaminophen (Tylenol 325mg Tab) 650 mg PO Q4H PRN PRN Reason: Pain, Mild (1-3) Last Admin: 01/25/17 20:54 Dose: 650 mg Albuterol/Ipratropium (Duoneb 3 Mg/0.5 Mg (3 Ml) Ud) 3 ml IH Q3H PRN PRN Reason: Shortness of Breath Last Admin: 01/25/17 13:31 Dose: 3 ml Azithromycin (Zithromax) 500 mg PO DAILY [facility] PRN Reason: Protocol Last Admin: 01/25/17 09:31 Dose: 500 mg Clonidine HCl (Catapres Tts1 0.1 Mg/24 Hr) 1 patch TD MON [facility] Last Admin: 01/24/17 18:02 Dose: 1 patch Enoxaparin Sodium (Lovenox) 40 mg SC DAILY [facility] PRN Reason: Protocol Last Admin: 01/25/17 09:32 Dose: 40 mg Famotidine (Pepcid) 20 mg PO AC [facility] Last Admin: 01/25/17 17:19 Dose: 20 mg Furosemide (Lasix) 40 mg PO BID [facility] Last Admin: 01/25/17 17:18 Dose: 40 mg Home Med (Home Med) 1 unit PO QAM [facility] Last Admin: 01/25/17 09:29 Dose: 1 unit Methylprednisolone (Solu-Medrol) 20 mg IVP Q12 [facility] Last Admin: 01/25/17 22:05 Dose: 20 mg Mycophenolate Mofetil (Cellcept Cap) 500 mg PO BID [facility] Last Admin: 01/25/17 17:18 Dose: 500 mg Ondansetron HCl (Zofran Odt) 4 mg SL Q6 PRN PRN Reason: Nausea/Vomiting Ondansetron HCl (Zofran Inj) 4 mg IVP Q4H PRN PRN Reason: Nausea/Vomiting Last Admin: 01/25/17 22:01 Dose: 4 mg Pantoprazole Sodium (Protonix Ec Tab) 40 mg PO DAILY [facility] Last Admin: 01/25/17 09:31 Dose: 40 mg Polyethylene Glycol (Miralax) 17 gm PO DAILY [facility] Last Admin: 01/25/17 18:48 Dose: 17 gm Pregabalin (Lyrica) 200 mg PO TID [facility] Last Admin: 01/25/17 17:18 Dose: 200 mg Quetiapine Fumarate (Seroquel) 200 mg PO HS [facility] Last Admin: 01/25/17 21:45 Dose: 200 mg Scopolamine (Transderm-Scop) 1 patch TD Q72H [facility] Last Admin: 01/23/17 21:58 Dose: 1 patch Sucralfate (Carafate Tab) 1 gm PO ACHS [facility] Last Admin: 01/25/17 21:45 Dose: 1 gm Tramadol/Acetaminophen (Ultracet 37.5/325 Mg) 1 tab PO Q6H PRN PRN Reason: Pain, moderate (4-7) Last Admin: 01/26/17 03:23 Dose: 1 tab Physical Exam - Constitutional Appears: Non-toxic, No Acute Distress - Head Exam Head Exam: NORMAL INSPECTION - ENT Exam ENT Exam: Mucous Membranes Moist - Neck Exam Neck exam: Negative for: Lymphadenopathy, Meningismus - Respiratory Exam Respiratory Exam: absent: Rales, Rhonchi Additional comments: right anterior chest wall port-a-cath in place, no tenderness, no surrounding erythema - Cardiovascular Exam Cardiovascular Exam: +S1, +S2 - GI/Abdominal Exam GI & Abdominal Exam: Soft. absent: Tenderness Results - Vital Signs Recent Vital Signs: Last Vital Signs Temp 97.7 F 01/25/17 16:00 Pulse 82 01/25/17 16:00 Resp 18 01/25/17 16:00 BP 160/98 H 01/25/17 17:18 Pulse Ox 97 01/25/17 16:00 - Labs Result Diagrams: 01/26/17 05:50 01/26/17 05:50 Labs: Laboratory Results - last 24 hr 01/25/17 01/25/17 01/25/17 06:00 06:00 07:38 WBC 8.0 D RBC 4.54 Hgb 11.6 L Hct 36.7 MCV 80.8 MCH 25.6 MCHC 31.6 RDW 15.6 H Plt Count 274 MPV 11.1 H Sodium 141 Potassium 3.9 Chloride 109 H Carbon Dioxide 22 Anion Gap 14 BUN 18 Creatinine 1.2 Est GFR ( Amer) 59 Est GFR (Non-Af Amer) 49 POC Glucose (mg/dL) 121 H Random Glucose 128 H Calcium 9.2 01/26/17 05:50 WBC 7.7 RBC 4.48 Hgb 11.3 L Hct 36.3 MCV 81.0 MCH 25.2 MCHC 31.1 RDW 15.8 H Plt Count 235 MPV 9.8 Sodium Potassium Chloride Carbon Dioxide Anion Gap BUN Creatinine Est GFR ( Amer) Est GFR (Non-Af Amer) POC Glucose (mg/dL) Random Glucose Calcium Assessment & Plan - Assessment and Plan (Free Text) Plan: Assessment Coagulase negative staph bacteremia R/O port-a-cath related infection COPD exacerbation, clinically improving SLE COPD Raynaud's phenomenon chronic renal failure spinal stenosis history of DVT S/P IVC filter placement chronic anemia on intermittent iron transfusion therapy GERD S/P gastric bypass surgery S/P right port-a-cath placement morbid obesity with BMI 43 Plan Will start patient on Daptomycin pending repeat blood cx from the port and a peripheral vein; follow up 2D echo results; will also get doppler U/S of right upper extremity veins to rule out DVT continue Zithromax for COPD will monitor clinically will get HIV test
[2017-01-26] MEDS ORDERED: DAPTOmycin 500 mg Inj (Cubicin) IV SCH (12:15)
--- NOTE | 2017-01-26 13:18 | PN ---
DATE: 01/26/2017 PULMONARY PROGRESS NOTE REFERRING PHYSICIAN: Emelina Jordan MD SUBJECTIVE: She is sitting up in the bed. Feels okay. Breathing better. Mild cough. Wheezing is gone. No nausea or vomiting. No diarrhea. No leg pain or leg swelling. OBJECTIVE: GENERAL: In no acute distress. VITAL SIGNS: Temperature is 98, heart rate is 71, respiratory rate is 20, blood pressure is 149/96, and pulse ox is 96% on room air. HEENT: Moist mucous membrane. Carotid airway. Mallampati score is IV. NECK: Supple. No JVD. LUNGS: Has fair airflow with few rhonchi. HEART: S1 and S2. ABDOMEN: Soft and nontender. No organomegaly. EXTREMITIES: No edema. NEUROLOGIC: Awake and alert. Follow simple commands. LABORATORY DATA: Shows hemoglobin of 11.3, hematocrit of 36.3, WBC of 7.7, and platelet is 235. Sodium is 142, potassium is 4.2, chloride is 108, bicarbonate is 25, BUN is 24, creatinine is 1.5, glucose is 140, calcium is 9.0. AST 16, ALT 18, alkaline phosphatase is 76. Albumin is 3.9. TSH 0.31. Blood culture drawn on 01/23/2017, gram stain shows gram positive cocci. Echocardiogram done, report is pending. MEDICATIONS: She is on Carafate 1 g before meals and at bedtime, Catapres 0.1 mg weekly, Cellcept 500 mg twice a day, DuoNeb q. 3 hours p.r.n., Lasix 40 mg twice day, Lovenox 40 mg daily, Lyrica 200 mg 3 times a day, MiraLax 17 g daily, Pepcid 20 mg daily, Protonix 40 mg daily, Seroquel 200 mg at bedtime, Solu-Medrol 20 mg q. 12 hours, transdermal scopolamine patch q. 72 hours, Tylenol p.r.n. basis, Ultracet 37.5/325 one tablet q. 6 hours p.r.n., Zithromax 500 mg daily, Zofran p.r.n. basis. IMPRESSION AND PLAN: Chronic obstructive lung disease, history of gastric bypass surgery, recurrent ulcers, gastroesophageal reflux disease, lupus, anemia, anxiety disorder, depression. history of chronic pain syndrome, opioids dependent, slowly weaned off, has a gram-positive cocci in both cultures. I ordered blood culture yesterday. I do not see any report. We will reorder it. Hopefully, it is contaminated. Thank you and we will follow with you. Nicolle Pollack MD
--- NOTE | 2017-01-26 15:29 | CARD ---
APPROVED REPORT EXAM: Two-dimensional and M-mode echocardiogram with Doppler and color Doppler. INDICATION Infection:Rule out subacute bacterial endocarditis 2D DIMENSIONS Left Atrium (2D)3.5 (1.6-4.0cm)IVSd1.4 (0.7-1.1cm) LVDd4.1 (3.9-5.9cm)PWd1.2 (0.7-1.1cm) LVDs2.9 (2.5-4.0cm)FS (%) 29.1 % LVEF (%)56.3 (>50%) M-Mode DIMENSIONS Aortic Root2.90 (2.2-3.7cm)Aortic Cusp Exc.1.90 (1.5-2.0cm) Aortic Valve AoV Peak Csjgtoyt133.0cm/Juhi Peak GR.12mmHg Mitral Valve E/A ratio0.0 TDI E/Lateral E'0.0E/Medial E'0.0 Tricuspid Valve TR Peak [id number] [id number] Peak Gr.29mmHg [id number] LEFT VENTRICLE The left ventricle is normal size. There is mild concentric left ventricular hypertrophy. The left ventricular function is normal. The left ventricular ejection fraction is within the normal range. There is normal LV segmental wall motion. Transmitral Doppler flow pattern is Grade I-abnormal relaxation pattern. RIGHT VENTRICLE The right ventricle is normal size. There is normal right ventricular wall thickness. The right ventricular systolic function is normal. ATRIA The left atrium size is normal. The right atrium size is normal. AORTIC VALVE The aortic valve is not well visualized. No aortic regurgitation is present. There is no aortic valvular stenosis. MITRAL VALVE The mitral valve is normal in structure. There is no mitral valve regurgitation noted. TRICUSPID VALVE There is mild tricuspid regurgitation. There is mild pulmonary hypertension. GREAT VESSELS The aortic root is normal in size. <Conclusion> The left ventricle is normal size. There is mild concentric left ventricular hypertrophy. The left ventricular function is normal. The left ventricular ejection fraction is within the normal range. There is normal LV segmental wall motion. Transmitral Doppler flow pattern is Grade I-abnormal relaxation pattern. There is mild pulmonary hypertension. No vegitation seen
--- NOTE | 2017-01-26 16:45 | US ---
PROCEDURE: Right upper extremity venous US CLINICAL HISTORY: Arm pain and swelling Evaluate for deep venous thrombosis. PHYSICIAN(S): Ruddy Soliz M.D FINDINGS: The visualized rightinternal jugular vein is sonographically normal and compressible. No evidence of obstruction or thrombus is seen. The visualized segments of the right subclavian vein are patent with normal waveforms. No sonographic evidence of obstruction or thrombosis is seen. The visualized deep venous system of the proximal right upper extremity is sonographically normal and compressible. IMPRESSION: 1. No sonographic evidence for deep venous thrombosis in the visualized segments of the right upper extremity.
--- NOTE | 2017-01-26 20:42 | PN ---
DATE: SUBJECTIVE: The patient is seen and examined on the bedside, looking comfortable. Breathing is better. Mild coughing. No nausea or vomiting. No diarrhea. No hematuria or hematochezia. No swelling of the legs. No fever. No chills. PHYSICAL EXAMINATION: VITAL SIGNS: Temperature 98, heart rate 71, respiratory rate 20, blood pressure 114/96, and pulse ox 96% on room air. HEENT: Head; normocephalic and atraumatic. Eyes; PERRLA. Extraocular muscles intact. Conjunctivae are clear. Nose is patent. Mucous membranes moist. NECK: Supple. No carotid bruits, JVD, or thyromegaly. CHEST: Bilaterally symmetrical. HEART: S1 and S2 positive. LUNGS: Clear to auscultation. ABDOMEN: Soft. Bowel sounds positive. No organomegaly. EXTREMITIES: No edema. No cyanosis. NEUROLOGIC: The patient is awake and alert. Follows simple commands. MEDICATIONS: Carafate, Catapres, CellCept, DuoNeb, Lasix, Lovenox, Lyrica, MiraLax, Pepcid, Protonix, Seroquel, Solu-Medrol, Transdermal scopolamine patch, Ultracet, Zithromax, and Zofran. LABORATORY DATA: Hemoglobin 11.3, hematocrit 36.3, white blood cell 7.7, and platelets 235. Sodium is 142, potassium is 4.2, BUN 24, and creatinine 1.5. AST 16 and ALT 18. TSH 0.31. Blood culture drawn on 01/23/2017 Gram-stain shows Gram-positive cocci. Echocardiograph done. ASSESSMENT AND PLAN: Ms. Josie Hurst with history of chronic obstructive lung disease, came with exacerbation of chronic obstructive pulmonary disease, history of gastric bypass surgery, recurrent ulcers, gastroesophageal reflux disease, lupus, anemia, anxiety disorder, depression. history of narcotics abuse, chronic pain syndrome, slowly weaning off, and Gram-positive Cocci in both cultures. Blood cultures repeated today. We will call Infectious Disease on the case. Gastrointestinal and deep venous thrombosis prophylaxis. Repeat labs. We will follow up. Emelina Jordan MD
[2017-01-27] MEDS: TraMADol/Apap 37.5/325 mg Tab PO PRN (04:10)
[2017-01-27 06:58] LABS: HEMATOCRIT 35.9 % (36.0-48.0); MEAN CELL VOLUME 82.2 fl (80.0-105.0); MEAN CORPUSCULAR HEMOGLOBIN 24.7 pg (25.0-35.0); MEAN CORPUSCULAR HGB CONC 30.1 g/dl (31.0-37.0); MEAN PLATELET VOLUME 10.8 fl (7.0-11.0); RED CELL DISTRIBUTION WIDTH 16.1 % (11.5-14.5); WHITE BLOOD COUNT 6.5 10^3/ul (4.5-11.0)
[2017-01-27 08:30] LABS: ALB/GLOB RATIO 1.1 (1.1-1.8); BILIRUBIN,TOTAL 0.4 mg/dL (0.2-1.3); CALCIUM 8.4 mg/dL (8.4-10.5); POTASSIUM 3.7 mmol/L (3.6-5.0)
[2017-01-27] MEDS: POLYETHYLENE GLYCOL 3350 17 GM/Dose PACKET PO SCH (09:51)
[2017-01-27] MEDS: Enoxaparin 40 mg Syringe SC SCH (09:51)
[2017-01-27] MEDS: VIIBRYD 40 MG PO SCH (09:52)
[2017-01-27] MEDS: Pantoprazole 40 mg EC Tab PO SCH (09:52)
[2017-01-27] MEDS: MethylPREDNISolone 40 mg Vial IVP SCH (09:53)
--- NOTE | 2017-01-27 19:14 | CP.PCM.PN ---
Subjective - Date & Time of Evaluation Date of Evaluation: 01/27/17 Time of Evaluation: 10:25 - Subjective Subjective: Comfortable, no pain along port area, no fevers. Objective - Vital Signs/Intake and Output Vital Signs (last 24 hours): Temp Pulse Resp BP Pulse Ox 98.7 F 95 H 20 144/103 H 99 01/26/17 16:00 01/26/17 16:00 01/26/17 16:00 01/26/17 17:36 01/26/17 16:00 Intake and Output: 01/26/17 01/27/17 18:59 06:59 Intake Total 120 Balance 120 - Medications Medications: Current Medications Acetaminophen (Tylenol 325mg Tab) 650 mg PO Q4H PRN PRN Reason: Pain, Mild (1-3) Last Admin: 01/25/17 20:54 Dose: 650 mg Albuterol/Ipratropium (Duoneb 3 Mg/0.5 Mg (3 Ml) Ud) 3 ml IH Q3H PRN PRN Reason: Shortness of Breath Last Admin: 01/25/17 13:31 Dose: 3 ml Alprazolam (Xanax) 0.5 mg PO HS PRN; Protocol PRN Reason: Anxiety Last Admin: 01/27/17 00:00 Dose: 0.5 mg Azithromycin (Zithromax) 500 mg PO DAILY [facility] PRN Reason: Protocol Last Admin: 01/26/17 09:02 Dose: 500 mg Clonidine HCl (Catapres Tts1 0.1 Mg/24 Hr) 1 patch TD MON [facility] Last Admin: 01/24/17 18:02 Dose: 1 patch Enoxaparin Sodium (Lovenox) 40 mg SC DAILY [facility] PRN Reason: Protocol Last Admin: 01/26/17 09:02 Dose: 40 mg Famotidine (Pepcid) 20 mg PO AC [facility] Last Admin: 01/26/17 17:36 Dose: 20 mg Furosemide (Lasix) 40 mg PO BID [facility] Last Admin: 01/26/17 17:36 Dose: 40 mg Home Med (Home Med) 1 unit PO QAM [facility] Last Admin: 01/26/17 09:06 Dose: 1 unit Daptomycin 680 mg/ Sodium (Chloride) 100 mls @ 200 mls/hr IV Q24H [facility] Stop: 02/09/17 12:31 Last Admin: 01/26/17 14:35 Dose: 200 mls/hr Methylprednisolone (Solu-Medrol) 20 mg IVP Q12 [facility] Last Admin: 01/26/17 22:03 Dose: 20 mg Mycophenolate Mofetil (Cellcept Cap) 500 mg PO BID [facility] Last Admin: 01/26/17 17:35 Dose: 500 mg Ondansetron HCl (Zofran Odt) 4 mg SL Q6 PRN PRN Reason: Nausea/Vomiting Ondansetron HCl (Zofran Inj) 4 mg IVP Q4H PRN PRN Reason: Nausea/Vomiting Last Admin: 01/25/17 22:01 Dose: 4 mg Pantoprazole Sodium (Protonix Ec Tab) 40 mg PO DAILY [facility] Last Admin: 01/26/17 09:04 Dose: 40 mg Polyethylene Glycol (Miralax) 17 gm PO DAILY [facility] Last Admin: 01/26/17 09:02 Dose: 17 gm Pregabalin (Lyrica) 200 mg PO TID [facility] Last Admin: 01/26/17 17:35 Dose: 200 mg Quetiapine Fumarate (Seroquel) 200 mg PO HS [facility] Last Admin: 01/26/17 22:03 Dose: 200 mg Scopolamine (Transderm-Scop) 1 patch TD Q72H [facility] Last Admin: 01/26/17 22:03 Dose: 1 patch Sucralfate (Carafate Tab) 1 gm PO ACHS [facility] Last Admin: 01/26/17 22:03 Dose: 1 gm Tizanidine HCl (Zanaflex) 2 mg PO TID [facility] Last Admin: 01/26/17 17:35 Dose: 2 mg Tramadol/Acetaminophen (Ultracet 37.5/325 Mg) 1 tab PO Q6H PRN PRN Reason: Pain, moderate (4-7) Last Admin: 01/27/17 04:10 Dose: 1 tab - Labs Labs: 01/26/17 05:50 01/26/17 05:50 PT 11.3 SECONDS (9.4-12.5) 01/23/17 19:09 INR 1.04 (0.93-1.08) 01/23/17 19:09 APTT 34.2 Seconds (25.1-36.5) 01/23/17 19:09 - Constitutional Appears: Non-toxic - Head Exam Head Exam: NORMAL INSPECTION - Neck Exam Neck Exam: absent: Meningismus - Respiratory Exam Respiratory Exam: Decreased Breath Sounds - Cardiovascular Exam Cardiovascular Exam: +S1, +S2 - GI/Abdominal Exam GI & Abdominal Exam: Soft. absent: Tenderness Assessment and Plan - Assessment and Plan (Free Text) Plan: Assessment Methicillin-resistant Coagulase negative staph bacteremia R/O port-a-cath related infection (patient has apparent coagulase neg staph bacteremia on 2 other separate occasions in other hospitals this year) COPD exacerbation, clinically improving SLE COPD Raynaud's phenomenon chronic renal failure spinal stenosis history of DVT S/P IVC filter placement chronic anemia on intermittent iron transfusion therapy GERD S/P gastric bypass surgery S/P right port-a-cath placement morbid obesity with BMI 43 Plan continue Daptomycin; repeat blood cx are so far negative from the port and a peripheral vein; 2D echo does not show vegetations; doppler U/S of right upper extremity veins does not show DVT would recommend removing the port since the bacteremia has happened multiple times this year continue Zithromax for COPD will monitor clinically follow up HIV test
--- NOTE | 2017-01-28 01:46 | PN ---
PULMONARY PROGRESS NOTE DATE: 01/27/2017 REFERRING PHYSICIAN: Emelina Jordan MD SUBJECTIVE: The patient is lying in the bed, head at 45 degrees. Feels much better. Decreased cough. Decreased shortness of breath. No nausea. No vomiting. No diarrhea. No leg pain or leg swelling. OBJECTIVE: GENERAL: In no acute distress. VITAL SIGNS: Temperature is 98, heart rate is 77, respiratory rate is 20, blood pressure is 139/96, and pulse ox is 99% on room air. HEENT: Moist mucous membranes. Crowded airway. Mallampati score is 4. NECK: Supple. No JVD. LUNGS: Has a few scattered rhonchi and wheezing. HEART: S1 and S2. ABDOMEN: Soft and nontender. No organomegaly. EXTREMITIES: There is no edema. NEUROLOGIC: Awake and alert. Follows simple commands. MEDICATIONS: She is on Carafate 1 g a.c. and at bedtime, Catapres 0.1 mg weekly, CellCept 500 mg twice a day, daptomycin 680 mg q.24 hours, DuoNeb q.3 hours p.r.n., Lasix 40 mg twice a day, Lovenox 40 mg subcutaneously daily, Lyrica 200 mg 3 times a day, MiraLax 17 g daily, Pepcid 20 mg p.o. a.c., Protonix 40 mg daily, Solu-Medrol 20 mg q.12 hours, scopolamine patch q.72 hours, Tylenol p.r.n. basis, Ultracet 37.5/325 one tablet q.6 hours p.r.n., Xanax 1 mg at bedtime p.r.n., Zanaflex 2 mg 3 times a day, Zithromax 500 mg daily, Zofran p.r.n. basis, and Zoloft p.r.n. basis. LABORATORY DATA: Shows hemoglobin 10.8, hematocrit 35.9, WBC 6.5, and platelets are 250. Sodium is 141, potassium is 3.7, chloride is 110, bicarbonate is 23, BUN is 25, creatinine is 1.5, glucose is 103, and calcium is 8.4. AST 15, ALT 22, and alkaline phosphatase is 78. Albumin is 3.7. Repeat blood culture, there is no growth. Initial blood culture has grown coagulase-negative Staph. Venous Doppler of lower extremity shows no evidence of DVT in visual segment of the right upper extremity. IMPRESSION AND PLAN: Chronic obstructive lung disease; history of gastric bypass surgery; recurrent ulcers; gastroesophageal reflux disease; lupus; anemia; anxiety disorder; depression; history of chronic pain syndrome, opioids dependent, which is weaned off from the last couple of months, still on benzodiazepine dependent, and has a Gram-positive cocci in the blood, on antibiotics. We will decrease Solu-Medrol to once a day. According to the patient, she takes Xanax 1 mg three times a day, has hard time sleeping, and want to increase Xanax to once at bedtime, so we will order Xanax once a day at bedtime p.r.n. Antibiotics as per Infectious Disease. Thank you and we will follow with you. Nicolle Pollack MD
[2017-01-28] MEDS: TraMADol/Apap 37.5/325 mg Tab PO PRN ×3 (02:35→18:17)
[2017-01-28 07:02] LABS: HEMATOCRIT 36.5 % (36.0-48.0); MEAN CELL VOLUME 82.2 fl (80.0-105.0); MEAN CORPUSCULAR HGB CONC 30.4 g/dl (31.0-37.0); MEAN PLATELET VOLUME 10.5 fl (7.0-11.0); WHITE BLOOD COUNT 8.2 10^3/ul (4.5-11.0)
[2017-01-28 08:16] LABS: ALB/GLOB RATIO 1.1 (1.1-1.8); BILIRUBIN,TOTAL 0.3 mg/dL (0.2-1.3); CALCIUM 8.3 mg/dL (8.4-10.5); TOTAL PROTEIN 7.1 g/dL (5.8-8.3)
[2017-01-28 08:43] LABS: POTASSIUM 2.9 mmol/L (3.6-5.0)
[2017-01-28] MEDS ORDERED: MethylPREDNISolone 40 mg Vial IVP SCH (10:00)
[2017-01-28] MEDS: Pantoprazole 40 mg EC Tab PO SCH (10:14)
[2017-01-28] MEDS: Enoxaparin 40 mg Syringe SC SCH (10:14)
[2017-01-28] MEDS: POLYETHYLENE GLYCOL 3350 17 GM/Dose PACKET PO SCH (10:16)
[2017-01-28] MEDS: VIIBRYD 40 MG PO SCH (10:30)
[2017-01-28] MEDS: Sucralfate 1 gm/10 ml Oral Susp UD PO SCH ×2 (18:16→21:12)
[2017-01-28] MEDS ORDERED: Potassium Chloride 20 mEq ER Tab PO ONE (19:31)
[2017-01-28] MEDS ORDERED: Oxycodone/Acetaminophen 5/325 mg Tab PO STA (22:04)
--- NOTE | 2017-01-28 22:30 | PN ---
DATE: 01/28/2017 SUBJECTIVE: The patient is in bed, in no acute distress, nontoxic. The patient was seen earlier this morning. PHYSICAL EXAMINATION: VITAL SIGNS: Temperature is 98, blood pressure is 120/80, and respiratory rate of 16. HEENT: Unremarkable. NECK: Supple. LUNGS: Decreased breath sounds. HEART: Normal S1 and S2. ABDOMEN: Soft and nontender. LABORATORY DATA: Reveals a white count of 8.2, hemoglobin of 11. BUN of 24 and creatinine of 1.5. Urinalysis is noted. Serology reveals HIV is negative. Microbiology reveals coag-negative Staphylococcus in 2 bottles and repeat blood cultures show no growth. MEDICATIONS: Review of orders reveal the patient to be on Solu-Medrol, but no antibiotics except for the daptomycin. ASSESSMENT AND PLAN: This is a 46-year-old female with; 1. Methicillin-resistant coagulase-negative Staphylococcus bacteremia, rule out Port-A-Cath related infection. 2. Chronic obstructive lung disease. 3. Lupus. 4. Chronic obstructive pulmonary disease. 5. Raynaud's. 6. Chronic renal failure. 7. Spinal stenosis. 8. History of gastric bypass. 9. History of right Port-A-Cath placement. 10. Morbid obesity, body mass index of 43. A 2D echo does not show any vegetation. Doppler of the lower extremity does not show any DVT. Repeat cultures were negative. Currently on daptomycin. We will continue daptomycin. We will discuss with PMD. Dr. Pollack's note is appreciated from yesterday. Dr. Jordan's note is reviewed and appreciated. Louis Masterson MD
--- NOTE | 2017-01-28 23:27 | PN ---
PULMONARY PROGRESS NOTE DATE: 01/28/2017 REFERRING PHYSICIAN: Emelina Jordan MD SUBJECTIVE: She is sitting up in the bed, feels better. No headache or rhinitis. Decreased cough. Decreased shortness of breath. No nausea, no vomiting, no diarrhea. No leg pain, no leg swelling. OBJECTIVE: GENERAL: In no acute distress. VITAL SIGNS: Temperature 98, heart rate is 78, respiratory rate is 20, blood pressure 125/89, pulse ox 99% on room air. HEENT: Moist mucous membranes. Crowded airway. Mallampati score is 4. NECK: Supple. No JVD. LUNGS: Has a few scattered rhonchi. HEART: S1 and S2. ABDOMEN: Soft, nontender, no organomegaly. EXTREMITIES: No edema. NEUROLOGIC: Awake, alert. Follow simple command. MEDICATIONS: Carafate 1 g four times a day, Catapres patch 0.1 mg weekly, CellCept 500 mg twice a day, daptomycin mg daily, DuoNeb q.3 h. p.r.n., Lasix 40 mg twice a day, Lovenox 40 mg subcu daily, Lyrica 200 mg three times a day, MiraLax 17 g daily, Pepcid 20 mg daily, Protonix 40 mg daily, Seroquel 200 mg h.s., Solu-Medrol mg IV daily, Transderm scopolamine patch q.72 hours, Tylenol p.r.n. basis, Ultracet 37.5/325 one tab q.6 hours p.r.n., Xanax 1 mg h.s. p.r.n., Zanaflex 2 mg three times a day, Zithromax 500 mg daily, and Zofran p.r.n. basis. LABORATORY DATA: Shows hemoglobin 11.1, hematocrit 36.5, WBC 8.2, platelet count is 241. Sodium 142, potassium 2.9, chloride 107, bicarbonate 26, BUN 24, creatinine 1.5, glucose 101, calcium is 8.3, AST 17, ALT 17, alk phos is 79, albumin is 3.7. Repeat blood culture so far, there is no growth. Ultrasound of the extremity shows no sonographic evidence of DVT or thrombus in the visualized segment of the right upper extremity. IMPRESSION AND PLAN: Chronic obstructive lung disease, history of gastric bypass surgery, recurrent ulcers, gastroesophageal reflux disease, lupus, anxiety disorder or depression, history of chronic pain syndrome. History of opiates dependent, still on benzodiazepine. Recurrent bacteremia, on antibiotics. Plan is to extract the [id number]. Continue antibiotics as per Infectious Diseases. Continue bronchodilator. We will discontinue Solu-Medrol and start prednisone 10 mg daily. Thank you and we will follow with you. Nicolle Pollack MD
--- NOTE | 2017-01-29 04:22 | PN ---
DATE: 01/28/2017 SUBJECTIVE: The patient is a 46-year-old female. The patient is seen and examined on the bedside, looking comfortable. No nausea, vomiting, or diarrhea. Cough is better. Shortness of breath is better. No fever. No chills. No hematuria or hematochezia. No swelling of the legs. PHYSICAL EXAMINATION: VITAL SIGNS: Temperature 98, heart rate 78, respiratory rate 20, blood pressure 125/89, and pulse oximetry 90% on room air. HEENT: Head is normocephalic and atraumatic. Eyes; PERRLA. Extraocular muscles are intact. Conjunctivae clear. Nose patent. Mucous membranes moist. NECK: Supple. No carotid bruits, JVD, or thyromegaly. CHEST: Bilaterally symmetrical. HEART: S1 and S2 positive. LUNGS: Clear to auscultation. ABDOMEN: Soft. Positive bowel sounds. No organomegaly. EXTREMITIES: No edema. No cyanosis. NEUROLOGIC: The patient is awake and alert. Follow simple commands. MEDICATIONS: Carafate, Catapres, CellCept, daptomycin, Lasix, Lovenox, Lyrica, MiraLax, Pepcid, Solu-Medrol, scopolamine, tramadol, Xanax, Zanaflex, erythromycin, and Zofran. LABORATORY DATA: Labs reviewed by me. ASSESSMENT AND PLAN: Ms. Josie Hurst is seen by me on 01/28/2017, has chronic obstructive lung disease, history of gastric bypass surgery, recurrent stomach ulcers, gastroesophageal reflux disease, lupus, and anxiety disorder. The patient has chronic pain syndrome, history of opioid dependency, still on benzodiazepine, and recurrent bacteremia, on antibiotics. Plan is to extract the Port-A Cath. Continue antibiotics as per Infectious Disease. Gastrointestinal and deep venous thrombosis prophylaxis. Repeat labs. We will follow up. Emelina Jordan MD MTDWill
[2017-01-29] MEDS: Sucralfate 1 gm/10 ml Oral Susp UD PO SCH ×4 (06:17→21:07)
[2017-01-29] MEDS: TraMADol/Apap 37.5/325 mg Tab PO PRN ×2 (06:18→13:06)
[2017-01-29] MEDS: Enoxaparin 40 mg Syringe SC SCH (09:37)
[2017-01-29] MEDS: POLYETHYLENE GLYCOL 3350 17 GM/Dose PACKET PO SCH (09:37)
[2017-01-29] MEDS: Pantoprazole 40 mg EC Tab PO SCH (09:37)
[2017-01-29] MEDS: VIIBRYD 40 MG PO SCH (09:38)
--- NOTE | 2017-01-29 18:11 | PN ---
DATE: 01/29/2017 SUBJECTIVE: The patient is seen in bed in no acute distress. OBJECTIVE: VITAL SIGNS: Temperature is 98, blood pressure is 120/70, and respiratory rate of 20. HEENT: Unremarkable. NECK: Supple. LUNGS: Have decreased breath sounds. HEART: Normal S1 and S2. ABDOMEN: Soft and nontender. LABORATORY DATA: Reveals a white count of 8.2, hemoglobin of 11, and platelets of 241. Chemistries reveals a BUN of 24 and creatinine of 1.5. Urinalysis is noted. Blood cultures and coag-negative Staph from the and repeat blood cultures from the are no growth. Dr. Jordan's note from today is reviewed. ASSESSMENT AND PLAN: A 46-year-old female with methicillin-resistant coagulase-negative Staphylococcus bacteremia with a Port-A-Cath related infection to be ruled out and chronic obstructive lung disease, lupus, Raynaud's, and chronic renal failure, spinal stenosis, history of gastric bypass, history of right Port-A-Cath placement, morbid obesity, and body mass index of 43. Currently on daptomycin. We will check on the repeat final culture results and CPK. We will follow closely with you. Louis Masterson MD
--- NOTE | 2017-01-29 23:33 | PN ---
DATE: SUBJECTIVE: The patient was seen and examined on the bedside, looking comfortable. Complaining of pain in the port site. No nausea, vomiting, or diarrhea. No hematuria or hematochezia. No swelling of the legs. No fever. No chills. PHYSICAL EXAMINATION VITAL SIGNS: Temperature 98.5, pulse 64, blood pressure 132/71 and respiratory rate 18. HEENT: Head is normocephalic and atraumatic. Eyes; PERRLA. Extraocular muscles are intact. Conjunctivae clear. Nose patent. Mucous membranes moist. NECK: Supple. No carotid bruit, JVD or thyromegaly. CHEST: Bilaterally symmetrical. HEART: S1 and S2 positive. LUNGS: Clear to auscultation. ABDOMEN: Soft. Bowel sounds present. No organomegaly. EXTREMITIES: No edema. No cyanosis. NEUROLOGIC: The patient is awake and alert. Moving all 4 extremities. No focal deficits. MEDICATIONS: Carafate, Catapres, CellCept, daptomycin, DuoNeb, Lasix, Lovenox, Lyrica, MiraLax, Pepcid, prednisone, Protonix, Seroquel, scopolamine, Tylenol, tramadol, Xanax and Zofran. LABORATORY DATA: Without her recent labs today, but I reviewed the old labs. ASSESSMENT AND PLAN: Ms. Josie Hurst is a 46-year-old lady with hypokalemia replaced with K-Dur, renal insufficiency, hypocalcemia, anemia status post blood transfusion, history of gastric bypass in the remote past, chronic obstructive lung disease, recurrent gastric ulcers, gastroesophageal reflux disease, lupus, anxiety, depression, chronic pian syndrome, history of opioids dependency, now getting out of bed, still using benzodiazepine, urged to stop benzodiazepines also. Going for removal of the Port-A-Cath on Monday at 10 o'clock. Meanwhile, continue present treatment. Gastrointestinal and deep venous thrombosis prophylaxis. The patient was informed, but no more pain medication. We will follow up. Emelina Jordan MD LINDA
--- NOTE | 2017-01-30 00:43 | PN ---
PULMONARY PROGRESS NOTE DATE: 01/29/2017 REFERRING PHYSICIAN: Dr. Jordan. SUBJECTIVE: She is sitting up in the bed. Night was unremarkable. Feels okay. Cough and shortness of breath is better. No nausea, vomiting or diarrhea. No leg pain or leg swelling. OBJECTIVE: GENERAL: In no acute distress. VITAL SIGNS: Temperature is 98, heart rate is 64, respiratory rate is 20, blood pressure 132/71, and pulse ox 99% on room air. HEENT: Moist mucous membranes. Crowded airway. NECK: Supple. No JVD. LUNGS: Has a fair airflow with few rhonchi. HEART: S1 and S2. ABDOMEN: Soft and nontender. No organomegaly. EXTREMITIES: No edema. NEUROLOGIC: Awake and alert. Follow simple command. MEDICATIONS: She is on Carafate 1 g q.i.d., Catapres patch 0.1 mg weekly, Cellcept 500 mg twice a day, daptomycin 680 mg daily, albuterol and Atrovent nebulizer q. 3 hours p.r.n., Lasix 40 mg twice a day, Lovenox 40 mg daily, Lyrica 200 mg 3 times a day, MiraLax 17 g daily, Pepcid 20 mg a.c., prednisone 10 mg daily, Protonix 40 mg daily, Seroquel 200 mg at bedtime, scopolamine patch q. 72 hours, Tylenol p.r.n. basis, Ultracet 37.5/325 one tablet q. 6 hours p.r.n., Xanax 1 mg at bedtime p.r.n., Zanaflex 2 mg three times a day, and Zofran 4 mg q. 4 hours p.r.n. LABORATORY DATA: Shows potassium today was 3.1. HIV was nonreactive. Repeat blood cultures. There is no growth. IMPRESSION AND PLAN: Chronic obstructive lung disease, history of gastric bypass surgery, recurrent gastric ulcers, gastroesophageal reflux disease, lupus, anxiety disorder, depression, benzodiazepine dependent, had a Port-A-Cath, recurrent Staphylococcus infection. According to the patient, this is her third infection for the last couple of months, on antibiotics, bronchodilator, gastric prophylaxis, taper off steroids. Further decision as per Infectious Diseases. If Port-A-Cath should come out ? Thank you and we will follow with you. Nicolle Pollack MD [facility] # [id number]
[2017-01-30] MEDS: Sucralfate 1 gm/10 ml Oral Susp UD PO SCH ×4 (06:38→21:03)
--- NOTE | 2017-01-30 08:55 | PN ---
DATE: 01/27/2017 SUBJECTIVE: The patient is a 46-year-old female. The patient seen and examined on the bedside. Looking comfortable. Cough is better. Shortness of breath is better. No nausea, vomiting, or diarrhea. Complaining about body aches. No hematuria. No hematochezia. No swelling of the legs. No fever. No chills. PHYSICAL EXAMINATION: VITAL SIGNS: Temperature is 98.7, pulse 95, respiratory rate 20, blood pressure 144/103 and pulse 99. HEENT: Head normocephalic, atraumatic. Eyes PERRLA. Extraocular muscles intact. Conjunctivae clear. Nose patent. Mucous membranes moist. NECK: Supple. No carotid bruit. No JVD or thyromegaly. CHEST: Bilaterally symmetrical. HEART: S1 and S2 positive. LUNGS: Clear to auscultation. ABDOMEN: Soft. Bowel sounds present. No organomegaly. EXTREMITIES: No edema. No cyanosis. NEUROLOGICAL: The patient is awake and alert. Moving all 4 extremities. No focal deficits. MEDICATIONS: Duoneb, Xanax, azithromycin, Catapres, Lovenox, Pepcid, Lasix, daptomycin, methylprednisolone, Cellcept, Zofran, Protonix, MiraLax, Lyrica, Seroquel, scopolamine, Carafate and Zanaflex. LABORATORY DATA: White blood cell 7.7, hemoglobin 11.3, hematocrit 36.3 and platelets 235. Sodium 140, potassium 4.2, BUN 24, creatinine 1.5, and glucose 140. ASSESSMENT AND PLAN: The patient is a 46-year-old lady with anemia, hypokalemia, renal insufficiency, hyperglycemia, has methicillin-resistant coagulase-negative staphylococcus bacteremia, but rule out Port-A-Cath related infection. The patient has apparent coagulase-negative Staphylococcus bacteremia on two other separate occasions in other hospitals. This year, chronic obstructive pulmonary disease exacerbation, clinically improved. Asthma improving. History of lupus, chronic obstructive pulmonary disease, renal insufficiency stable, spinal stenosis stable, chronic pain syndrome, history of deep venous thrombosis status post inferior vena cava filter placement, chronic anemia, on multiple times had blood transfusion, gastroesophageal reflux disease, dyspepsia, history of gastric bypass surgery long time ago, history of right Port-A-Cath placement, and morbid obesity. Continue daptomycin as per Infectious Disease. Repeat blood cultures, so far negative from port and a peripheral vein. A 2-D echocardiogram does not show vegetations. Doppler ultrasound of the right upper extremity vein does not show deep venous thrombosis. Would recommend removing the port since the bacteremia has happened multiple times this year. Continue azithromycin for chronic obstructive pulmonary disease, bronchodilators. Gastrointestinal and deep venous thrombosis prophylaxis. Repeat labs. We will follow. Emelina Jordan MD MTDD
[2017-01-30] MEDS: Pantoprazole 40 mg EC Tab PO SCH (09:34)
[2017-01-30] MEDS: POLYETHYLENE GLYCOL 3350 17 GM/Dose PACKET PO SCH (09:35)
[2017-01-30] MEDS: Enoxaparin 40 mg Syringe SC SCH (09:36)
[2017-01-30] MEDS: VIIBRYD 40 MG PO SCH (09:36)
[2017-01-30] MEDS ORDERED: Potassium Chloride 20 mEq ER Tab PO ONE (09:48)
[2017-01-30] MEDS ORDERED: Lidocaine 2% Inj (20ml) ONE (12:02)
[2017-01-30] MEDS ORDERED: Midazolam 2 MG/2 ML VIAL ONE ×2 (12:17→12:47)
[2017-01-30] MEDS ORDERED: Oxycodone/Acetaminophen 5/325 mg Tab PO ONE (15:48)
[2017-01-30 16:49] VITALS: O2SAT 99
--- NOTE | 2017-01-30 17:21 | CP.PCM.PN ---
Subjective - Date & Time of Evaluation Date of Evaluation: 01/30/17 Time of Evaluation: 10:25 - Subjective Subjective: Patient is having her port removed today, no fevers overnight, not in distress, no diarrhea. Objective - Vital Signs/Intake and Output Vital Signs (last 24 hours): Temp Pulse Resp BP Pulse Ox 97.6 F 69 20 124/87 100 01/30/17 08:56 01/30/17 09:33 01/30/17 08:56 01/30/17 09:34 01/30/17 08:56 Intake and Output: 01/30/17 01/30/17 06:59 18:59 Intake Total 360 Balance 360 - Medications Medications: Current Medications Acetaminophen (Tylenol 325mg Tab) 650 mg PO Q4H PRN PRN Reason: Pain, Mild (1-3) Last Admin: 01/25/17 20:54 Dose: 650 mg Albuterol/Ipratropium (Duoneb 3 Mg/0.5 Mg (3 Ml) Ud) 3 ml IH Q3H PRN PRN Reason: Shortness of Breath Last Admin: 01/25/17 13:31 Dose: 3 ml Alprazolam (Xanax) 1 mg PO HS PRN PRN Reason: Anxiety Last Admin: 01/29/17 21:06 Dose: 1 mg Clonidine HCl (Catapres Tts1 0.1 Mg/24 Hr) 1 patch TD MON [facility] Last Admin: 01/30/17 09:33 Dose: 1 patch Enoxaparin Sodium (Lovenox) 40 mg SC DAILY [facility] PRN Reason: Protocol Last Admin: 01/30/17 09:36 Dose: 40 mg Famotidine (Pepcid) 20 mg PO AC [facility] Last Admin: 01/30/17 06:38 Dose: 20 mg Furosemide (Lasix) 40 mg PO BID [facility] Last Admin: 01/30/17 09:34 Dose: 40 mg Home Med (Home Med) 1 unit PO QAM [facility] Last Admin: 01/30/17 09:36 Dose: 1 unit Daptomycin 680 mg/ Sodium (Chloride) 100 mls @ 200 mls/hr IV Q24H [facility] Stop: 02/09/17 12:31 Last Admin: 01/29/17 15:00 Dose: 200 mls/hr Mycophenolate Mofetil (Cellcept Cap) 500 mg PO BID [facility] Last Admin: 01/30/17 09:40 Dose: 500 mg Ondansetron HCl (Zofran Odt) 4 mg SL Q6 PRN PRN Reason: Nausea/Vomiting Ondansetron HCl (Zofran Inj) 4 mg IVP Q4H PRN PRN Reason: Nausea/Vomiting Last Admin: 01/25/17 22:01 Dose: 4 mg Pantoprazole Sodium (Protonix Ec Tab) 40 mg PO DAILY [facility] Last Admin: 01/30/17 09:34 Dose: 40 mg Polyethylene Glycol (Miralax) 17 gm PO DAILY [facility] Last Admin: 01/30/17 09:35 Dose: 17 gm Prednisone (Prednisone Tab) 10 mg PO DAILY [facility] Last Admin: 01/30/17 09:33 Dose: 10 mg Pregabalin (Lyrica) 200 mg PO TID [facility] Last Admin: 01/30/17 09:34 Dose: 200 mg Quetiapine Fumarate (Seroquel) 200 mg PO HS [facility] Last Admin: 01/29/17 21:07 Dose: 200 mg Scopolamine (Transderm-Scop) 1 patch TD Q72H [facility] Last Admin: 01/29/17 21:06 Dose: 1 patch Sucralfate (Carafate Oral Susp) 1 gm PO 0630,1130,1630,2200 [facility] Last Admin: 01/30/17 06:38 Dose: 1 gm Tizanidine HCl (Zanaflex) 2 mg PO TID [facility] Last Admin: 01/29/17 18:25 Dose: 2 mg Tramadol/Acetaminophen (Ultracet 37.5/325 Mg) 1 tab PO Q6H PRN PRN Reason: Pain, moderate (4-7) Last Admin: 01/29/17 13:06 Dose: 1 tab - Labs Labs: 01/28/17 06:00 01/29/17 06:30 PT 11.3 SECONDS (9.4-12.5) 01/23/17 19:09 INR 1.04 (0.93-1.08) 01/23/17 19:09 APTT 34.2 Seconds (25.1-36.5) 01/23/17 19:09 - Constitutional Appears: Non-toxic - Head Exam Head Exam: NORMAL INSPECTION - Respiratory Exam Respiratory Exam: Decreased Breath Sounds - Cardiovascular Exam Cardiovascular Exam: +S1, +S2 - GI/Abdominal Exam GI & Abdominal Exam: Soft. absent: Tenderness Assessment and Plan - Assessment and Plan (Free Text) Plan: Assessment Methicillin-resistant Coagulase negative staph bacteremia R/O port-a-cath related infection (patient has apparent coagulase neg staph bacteremia on 2 other separate occasions in other hospitals this year) COPD exacerbation, clinically improving SLE COPD Raynaud's phenomenon chronic renal failure spinal stenosis history of DVT S/P IVC filter placement chronic anemia on intermittent iron transfusion therapy GERD S/P gastric bypass surgery S/P right port-a-cath placement morbid obesity with BMI 43 Plan continue Daptomycin - should receive 10-14 days of antbiotics after port removal ; repeat blood cx are so far negative from the port and a peripheral vein; 2D echo does not show vegetations; doppler U/S of right upper extremity veins does not show DVT for port removal today HIV test is negative
--- NOTE | 2017-01-30 17:51 | CP.PCM.PN ---
<Luann Michaud - Last Filed: 01/30/17 23:55> Subjective - Date & Time of Evaluation Date of Evaluation: 01/30/17 Time of Evaluation: 11:00 - Subjective Subjective: 46 yr female w/ COPD, gastric bypass, recurrent gastric ulcers , GERD, Lupus, raynauds, chronic renal failure, spinal stenosis, morbid obesity , anxiety, depression, psychosis, DVT w/ IVC filter, benzodiazepine dependent. Recurrent staph infection in her port-a-cath. Today going for removal. She denies any headaches, dizziness/lightheadedness, SOB, chest pain, diarrhea, constipation or urinary frequency. No distress noted. Objective - Vital Signs/Intake and Output Vital Signs (last 24 hours): Temp Pulse Resp BP Pulse Ox 98.2 F 83 20 145/85 99 01/30/17 16:00 01/30/17 16:00 01/30/17 16:00 01/30/17 16:00 01/30/17 16:00 Intake and Output: 01/30/17 01/30/17 06:59 18:59 Intake Total 360 600 Balance 360 600 - Medications Medications: Current Medications Acetaminophen (Tylenol 325mg Tab) 650 mg PO Q4H PRN PRN Reason: Pain, Mild (1-3) Last Admin: 01/25/17 20:54 Dose: 650 mg Albuterol/Ipratropium (Duoneb 3 Mg/0.5 Mg (3 Ml) Ud) 3 ml IH Q3H PRN PRN Reason: Shortness of Breath Last Admin: 01/25/17 13:31 Dose: 3 ml Alprazolam (Xanax) 1 mg PO HS PRN PRN Reason: Anxiety Last Admin: 01/29/17 21:06 Dose: 1 mg Clonidine HCl (Catapres Tts1 0.1 Mg/24 Hr) 1 patch TD MON CALIN Last Admin: 01/30/17 09:33 Dose: 1 patch Enoxaparin Sodium (Lovenox) 40 mg SC DAILY CALIN PRN Reason: Protocol Last Admin: 01/30/17 09:36 Dose: 40 mg Famotidine (Pepcid) 20 mg PO AC COUNTS INCLUDE 234 BEDS AT [facility] Last Admin: 01/30/17 13:05 Dose: Not Given Furosemide (Lasix) 40 mg PO BID COUNTS INCLUDE 234 BEDS AT THE [facility] Last Admin: 01/30/17 09:34 Dose: 40 mg Home Med (Home Med) 1 unit PO QAM COUNTS INCLUDE 234 BEDS AT THE [facility] Last Admin: 01/30/17 09:36 Dose: 1 unit Daptomycin 680 mg/ Sodium (Chloride) 100 mls @ 200 mls/hr IV Q24H COUNTS INCLUDE 234 BEDS AT THE [facility] Stop: 02/09/17 12:31 Last Admin: 01/29/17 15:00 Dose: 200 mls/hr Mycophenolate Mofetil (Cellcept Cap) 500 mg PO BID COUNTS INCLUDE 234 BEDS AT THE [facility] Last Admin: 01/30/17 09:40 Dose: 500 mg Ondansetron HCl (Zofran Odt) 4 mg SL Q6 PRN PRN Reason: Nausea/Vomiting Ondansetron HCl (Zofran Inj) 4 mg IVP Q4H PRN PRN Reason: Nausea/Vomiting Last Admin: 01/25/17 22:01 Dose: 4 mg Pantoprazole Sodium (Protonix Ec Tab) 40 mg PO DAILY COUNTS INCLUDE 234 BEDS AT THE [facility] Last Admin: 01/30/17 09:34 Dose: 40 mg Polyethylene Glycol (Miralax) 17 gm PO DAILY COUNTS INCLUDE 234 BEDS AT THE [facility] Last Admin: 01/30/17 09:35 Dose: 17 gm Prednisone (Prednisone Tab) 10 mg PO DAILY COUNTS INCLUDE 234 BEDS AT THE [facility] Last Admin: 01/30/17 09:33 Dose: 10 mg Pregabalin (Lyrica) 200 mg PO TID COUNTS INCLUDE 234 BEDS AT [facility] Last Admin: 01/30/17 14:32 Dose: 200 mg Quetiapine Fumarate (Seroquel) 200 mg PO HS COUNTS INCLUDE 234 BEDS AT [facility] Last Admin: 01/29/17 21:07 Dose: 200 mg Scopolamine (Transderm-Scop) 1 patch TD Q72H COUNTS INCLUDE 234 BEDS AT THE [facility] Last Admin: 01/29/17 21:06 Dose: 1 patch Sucralfate (Carafate Oral Susp) 1 gm PO 0630,1130,1630,2200 COUNTS INCLUDE 234 BEDS AT THE [facility] Last Admin: 01/30/17 13:02 Dose: Not Given Tizanidine HCl (Zanaflex) 2 mg PO TID COUNTS INCLUDE 234 BEDS AT THE [facility] Last Admin: 01/30/17 14:33 Dose: 2 mg Tramadol/Acetaminophen (Ultracet 37.5/325 Mg) 1 tab PO Q6H PRN PRN Reason: Pain, moderate (4-7) Last Admin: 01/29/17 13:06 Dose: 1 tab - Labs Labs: 01/28/17 06:00 01/29/17 06:30 PT 11.3 SECONDS (9.4-12.5) 01/23/17 19:09 INR 1.04 (0.93-1.08) 01/23/17 19:09 APTT 34.2 Seconds (25.1-36.5) 01/23/17 19:09 - Constitutional Appears: No Acute Distress - Head Exam Head Exam: ATRAUMATIC - Eye Exam Eye Exam: Normal appearance Pupil Exam: NORMAL ACCOMODATION, PERRL - ENT Exam ENT Exam: Mucous Membranes Moist, Normal Exam - Neck Exam Neck Exam: Full ROM, Normal Inspection. absent: Lymphadenopathy - Respiratory Exam Respiratory Exam: Clear to Ausculation Bilateral, NORMAL BREATHING PATTERN - Cardiovascular Exam Cardiovascular Exam: REGULAR RHYTHM, +S1, +S2. absent: Murmur - GI/Abdominal Exam GI & Abdominal Exam: Soft, Normal Bowel Sounds. absent: Tenderness - Back Exam Back Exam: NORMAL INSPECTION. absent: CVA tenderness (L), CVA tenderness (R), Full ROM, muscle spasm, paraspinal tenderness, rash noted, tenderness, vertebral tenderness - Neurological Exam Neurological Exam: Alert, Awake, Normal Gait, Oriented x3. absent: Abnormal Gait, Altered, Motor Sensory Deficit, Reflexes Normal - Psychiatric Exam Psychiatric exam: Normal Affect, Normal Mood. absent: Agitated, Anxious, Depressed, Flat Affect, Homicidal Ideation, Manic, Suicidal Ideation - Skin Skin Exam: Dry, Intact, Normal Color, Warm. absent: Abrasion, Cyanosis, Diaphoretic, Erythema, Mottled, Pallor, Pallor, Petechiae, Rash, Urticaria, Vesicles Assessment and Plan (1) Bloodstream infection due to port-a-cath Status: Acute (2) Presence of IVC filter Status: Chronic (3) Pulmonary hypertension Status: Suspected (4) COPD (chronic obstructive pulmonary disease) Status: Chronic - Assessment and Plan (Free Text) Plan: Pt going down for removal of Port-a-cath. Family member in room waiting for her return. Consults: ID = Dr. Masterson = Dapotomycin, repeat CPK Pulmonary = Dr. Pollack = GI prophlaxis, taper steroids. Reviewed: ECG = (-) Sinus tachy CXR = (-) WNL ECHO = (+) EF WNL%, mild concentric LVH, mild pulmonary HTN R upper extremity US = (-) NEG DVT <Emelina Jordan - Last Filed: 01/31/17 09:20> Objective - Vital Signs/Intake and Output Vital Signs (last 24 hours): Temp Pulse Resp BP Pulse Ox 97.8 F 62 18 114/71 99 01/31/17 08:23 01/31/17 08:23 01/31/17 08:23 01/31/17 08:23 01/30/17 16:00 Intake and Output: 01/31/17 01/31/17 06:59 18:59 Intake Total 540 Balance 540 - Medications Medications: Current Medications Acetaminophen (Tylenol 325mg Tab) 650 mg PO Q4H PRN PRN Reason: Pain, Mild (1-3) Last Admin: 01/25/17 20:54 Dose: 650 mg Albuterol/Ipratropium (Duoneb 3 Mg/0.5 Mg (3 Ml) Ud) 3 ml IH Q3H PRN PRN Reason: Shortness of Breath Last Admin: 01/25/17 13:31 Dose: 3 ml Alprazolam (Xanax) 1 mg PO HS PRN PRN Reason: Anxiety Last Admin: 01/30/17 21:03 Dose: 1 mg Clonidine HCl (Catapres Tts1 0.1 Mg/24 Hr) 1 patch TD MON COUNTS INCLUDE 234 BEDS AT THE [facility] Last Admin: 01/30/17 09:33 Dose: 1 patch Enoxaparin Sodium (Lovenox) 40 mg SC DAILY CALIN PRN Reason: Protocol Last Admin: 01/30/17 09:36 Dose: 40 mg Famotidine (Pepcid) 20 mg PO AC COUNTS INCLUDE 234 BEDS AT [facility] Last Admin: 01/30/17 17:50 Dose: 20 mg Furosemide (Lasix) 40 mg PO BID COUNTS INCLUDE 234 BEDS AT [facility] Last Admin: 01/30/17 17:48 Dose: 40 mg Home Med (Home Med) 1 unit PO QAM COUNTS INCLUDE 234 BEDS AT [facility] Last Admin: 01/30/17 09:36 Dose: 1 unit Daptomycin 680 mg/ Sodium (Chloride) 100 mls @ 200 mls/hr IV Q24H COUNTS INCLUDE 234 BEDS AT [facility] Stop: 02/09/17 12:31 Last Admin: 01/30/17 18:37 Dose: 200 mls/hr Mycophenolate Mofetil (Cellcept Cap) 500 mg PO BID COUNTS INCLUDE 234 BEDS AT [facility] Last Admin: 01/30/17 17:49 Dose: 500 mg Ondansetron HCl (Zofran Odt) 4 mg SL Q6 PRN PRN Reason: Nausea/Vomiting Ondansetron HCl (Zofran Inj) 4 mg IVP Q4H PRN PRN Reason: Nausea/Vomiting Last Admin: 01/25/17 22:01 Dose: 4 mg Pantoprazole Sodium (Protonix Ec Tab) 40 mg PO DAILY COUNTS INCLUDE 234 BEDS AT [facility] Last Admin: 01/30/17 09:34 Dose: 40 mg Polyethylene Glycol (Miralax) 17 gm PO DAILY COUNTS INCLUDE 234 BEDS AT [facility] Last Admin: 01/30/17 09:35 Dose: 17 gm Prednisone (Prednisone Tab) 10 mg PO DAILY COUNTS INCLUDE 234 BEDS AT [facility] Last Admin: 01/30/17 09:33 Dose: 10 mg Pregabalin (Lyrica) 200 mg PO TID COUNTS INCLUDE 234 BEDS AT [facility] Last Admin: 01/30/17 17:48 Dose: 200 mg Quetiapine Fumarate (Seroquel) 200 mg PO HS COUNTS INCLUDE 234 BEDS AT [facility] Last Admin: 01/30/17 21:03 Dose: 200 mg Scopolamine (Transderm-Scop) 1 patch TD Q72H COUNTS INCLUDE 234 BEDS AT [facility] Last Admin: 01/29/17 21:06 Dose: 1 patch Sucralfate (Carafate Oral Susp) 1 gm PO 0630,1130,1630,2200 COUNTS INCLUDE 234 BEDS AT [facility] Last Admin: 01/31/17 05:48 Dose: 1 gm Tizanidine HCl (Zanaflex) 2 mg PO TID COUNTS INCLUDE 234 BEDS AT [facility] Last Admin: 01/30/17 17:49 Dose: 2 mg Tramadol/Acetaminophen (Ultracet 37.5/325 Mg) 1 tab PO Q6H PRN PRN Reason: Pain, moderate (4-7) Last Admin: 01/31/17 00:30 Dose: 1 tab - Labs Labs: 01/28/17 06:00 01/29/17 06:30 PT 11.3 SECONDS (9.4-12.5) 01/23/17 19:09 INR 1.04 (0.93-1.08) 01/23/17 19:09 APTT 34.2 Seconds (25.1-36.5) 01/23/17 19:09 Assessment and Plan - Assessment and Plan (Free Text) Plan: pt is seen and examined at bed side , got port removed ,need 10 days anb , will take her to tcu . agreed all above . chart , mar and labs noted , will f/u
[2017-01-30] MEDS: TraMADol/Apap 37.5/325 mg Tab PO PRN (17:54)
--- NOTE | 2017-01-30 18:22 | VASCULAR ---
PROCEDURE: Removal of tunneled right internal jugular venous access port. CLINICAL HISTORY: Chronic anemia. Limited venous access. Infected right IJ port. Needs removal. PHYSICIAN(S): Ruddy Soliz M.D. TECHNIQUE: The relative risks and indications of the procedure were explained to the patient and consent obtained. The patient was placed supine on the arteriogram table and the right neck and chest prepped and draped usual sterile fashion. Conscious sedation and monitoring were provided throughout the procedure by a nurse. Antibiotics were given prior to the procedure. 1% Xylocaine was used to anesthetize the skin and soft tissues at the port. A 4 cm incision was made. The port was bluntly dissected and removed. The catheter was removed under fluoroscopic guidance. No retained catheter fragments were seen. The pocket was lavaged with normal saline. The pocket was closed in 2 layers. The patient tolerated the procedure well. The catheter tip was sent for culture IMPRESSION: 1. Removal of tunneled right internal jugular venous access port. The catheter tip was sent for culture
--- NOTE | 2017-01-30 21:34 | PN ---
PULMONARY PROGRESS NOTE DATE: 01/30/2017 REFERRING PHYSICIAN: Emelina Jordan MD SUBJECTIVE: She is sitting up in a bed, status post left upper extremity midline catheter placed, [id number]-[id number] has been removed, and has some tenderness at the Wucf-H-Tijkmpoq site. Cough and shortness of breath is better. No nausea. No vomiting. No diarrhea. No leg pain or leg swelling. OBJECTIVE: GENERAL: In no acute distress. VITAL SIGNS: Temperature is 98, heart rate is 83, respiratory rate is 20, blood pressure is 145/85, and pulse oximetry is 99% on nasal cannula. HEENT: Moist mucous membrane. Crowded airway. NECK: Supple. No JVD. HEART: S1 and S2. LUNGS: Has a fair airflow. ABDOMEN: Soft and nontender. No organomegaly. EXTREMITIES: There is no edema. NEUROLOGIC: Awake, alert, and follow simple commands. MEDICATIONS: She is on Carafate overall suspension 1 g four times daily, Catapres patch 0.1 mg weekly, mg twice a day, daptomycin 680 mg daily, DuoNeb q.3 hours p.r.n., Lasix 40 mg twice a day, Lovenox 40 mg subcutaneously daily, Lyrica 200 mg 3 times a day, MiraLax 17 g daily, Pepcid 20 mg daily, prednisone 10 mg daily, Protonix 40 mg daily, Seroquel 200 mg at bedtime, transdermal scopolamine patch q.72 hours, Tylenol p.r.n., Ultracet 37.5/325 one tab q.6 hours p.r.n., Xanax 1 mg at bedtime p.r.n., Zanaflex 2 mg 3 times a day, and Zofran p.r.n. LABORATORY DATA: Reviewed. No new lab is available since yesterday. Repeat blood cultures have been negative. IMPRESSION AND PLAN: Chronic obstructive lung disease, history of gastric bypass surgery, recurrent gastric ulcers, gastroesophageal reflux disease, anxiety disorder, has a lupus, depression, benzodiazepine dependent, history of opioids dependent, status post removal of Ihgd-A-Sjiuuxbt requiring left midline, antibiotics as per Infectious Disease, continue p.o. and inhaled bronchodilators, sleep apnea precaution, gastric prophylaxis, may need to transfer to TRSU type place for continued care to complete antibiotics regimen. Thank you and we will follow with you. Nicolle Pollack MD
[2017-01-31] MEDS: TraMADol/Apap 37.5/325 mg Tab PO PRN ×2 (00:30→11:46)
[2017-01-31] MEDS: Sucralfate 1 gm/10 ml Oral Susp UD PO SCH ×2 (05:48→11:46)
[2017-01-31 08:24] VITALS: BP 114/71; PULSE 62; RESP 18; TEMP 97.8
[2017-01-31 10:13] LABS: HEMATOCRIT 36.8 % (36.0-48.0); MEAN CELL VOLUME 81.2 fl (80.0-105.0); MEAN CORPUSCULAR HEMOGLOBIN 25.4 pg (25.0-35.0); MEAN CORPUSCULAR HGB CONC 31.3 g/dl (31.0-37.0); MEAN PLATELET VOLUME 10.2 fl (7.0-11.0); RED CELL DISTRIBUTION WIDTH 15.6 % (11.5-14.5); WHITE BLOOD COUNT 7.1 10^3/ul (4.5-11.0)
[2017-01-31] MEDS: VIIBRYD 40 MG PO SCH (10:15)
[2017-01-31] MEDS: POLYETHYLENE GLYCOL 3350 17 GM/Dose PACKET PO SCH (10:17)
[2017-01-31] MEDS: Enoxaparin 40 mg Syringe SC SCH ×2 (10:17→10:28)
[2017-01-31] MEDS: Pantoprazole 40 mg EC Tab PO SCH (10:22)
[2017-01-31 10:27] LABS: ALB/GLOB RATIO 1.1 (1.1-1.8); BILIRUBIN,TOTAL 0.2 mg/dL (0.2-1.3); CALCIUM 8.7 mg/dL (8.4-10.5); POTASSIUM 3.5 mmol/L (3.6-5.0)
[2017-01-31] MEDS ORDERED: Influenza Vaccine 60 mcg/0.5 mL SYR (4YR UP) IM ONE (13:09)
[2017-01-31] MEDS ORDERED: Potassium Chloride 20 mEq ER Tab PO ONE (13:42)
--- NOTE | 2017-01-31 14:31 | PN ---
DATE: 01/31/2017 SUBJECTIVE: The patient is in bed in no acute distress. PHYSICAL EXAMINATION: VITAL SIGNS: On exam, temperature is 97, blood pressure is 114/70, respiratory rate of 18. HEENT: Unremarkable. NECK: Supple. LUNGS: Have decreased breath sounds. HEART: Normal S1 and S2. ABDOMEN: Soft, nontender. LABORATORY DATA: Reveals a white count of 7.1, hemoglobin of 11, and platelets of 220. Coagulation is noted. Chemistries reveals a BUN of 21, creatinine of 1.3. Urinalysis is noted. HIV is negative. Microbiology reveals a coag-negative Staph. The repeat blood cultures are negative. MEDICATIONS: Review of orders reveals the patient to be on daptomycin, which requires renewal, which I will do so. ASSESSMENT AND PLAN: This is a 46-year-old female with methicillin-resistant coagulase-negative Staphylococcus bacteremia, Port-A-Cath related infection. The patient had apparent coagulase-negative Staphylococcus in other separate occasions on this hospitalization with chronic obstructive lung disease, lupus, Raynaud's phenomena, chronic renal failure, spinal stenosis, history of deep venous thrombosis and inferior vena cava filter placement, and had a right Port-A-Cath, currently on daptomycin. Would recommend at least 14 days of daptomycin. The Port-A-Cath was removed yesterday. Today is postprocedure day #1. Minimum 14 days of daptomycin. Louis Masterson MD
[2017-01-31] MEDS ORDERED: Oxycodone/Acetaminophen 5/325 mg Tab PO STA (15:06)
--- NOTE | 2017-02-01 01:03 | DS ---
CHIEF COMPLAINT: Chest pain and shortness of breath. HISTORY OF PRESENT ILLNESS: Ms. Josie Hurst is a 46-year-old female with past medical history of lupus, COPD, asthma, renal failure, Raynaud's phenomena, spinal stenosis, psychosis, DVT with IVC filter, came to the Emergency Room Department with wheezing, shortness of breath, and chest pain with coughing. The patient had these symptoms from 6 days. The patient actually went to see [facility] and they told that the patient had to go hospital, nearby hospital was [facility], but the patient refused to go to [facility]. She drove to [facility] by herself, we admitted the patient. Call consult with [employer], Dr. Pollack, Infectious Disease, Dr. Knutson. Got ultrasound. The patient has Port-A-cath, it was infected, removed and according to ID the patient need 10 days of IV antibiotics, midline put on the left antecubital area, now transferred the patient to TCU for the completion of the treatment for deconditioning. PAST MEDICAL HISTORY: COPD, asthma, renal failure, lupus erythematosus, anemia status post blood transfusion, history of GERD, dyspepsia, anxiety, depression, section, gastric bypass surgery in 2003, tubal ligation, has right chest pain. FAMILY HISTORY: Father and mother noncontributory. HABITS: Smoking less than 10 cigarettes per day. Alcohol, no. Substance abuse, no. ALLERGIES: THE PATIENT IS NOT ALLERGIC TO ANY MEDICATIONS. HOME MEDICATIONS: Reviewed by me. REVIEW OF SYSTEMS: The patient seen and examined on the bedside early in the morning, looking comfortable, sometime complaining about pain on the midline, other time on the place from the port was removed; otherwise, no nausea or vomiting. No diarrhea. No hematuria or hematochezia. No swelling of the legs. No headache or dizziness. No fever. No chills. PHYSICAL EXAMINATION: VITAL SIGNS: Temperature 97, blood pressure 114/70, respiratory rate 18 and pulse 80. HEENT: Head is normocephalic and atraumatic. Eyes; PERRLA. Extraocular muscles are intact. Conjunctivae clear. Nose patent. Mucous membranes moist. NECK: Supple. No carotid bruit, JVD or thyromegaly. CHEST: Bilaterally symmetrical. HEART: S1 and S2 positive. LUNGS: Clear to auscultation. ABDOMEN: Soft. Bowel sounds present. No organomegaly. EXTREMITIES: No edema. No cyanosis. NEUROLOGIC: The patient is awake and alert. Moving all 4 extremities. No focal deficits. MEDICATIONS: Carafate, clonidine, CellCept, DuoNeb, K-Dur, Lasix, Lovenox, Lyrica, MiraLax, Motrin, Pepcid, Percocet, Protonix and Prozac. LABORATORY DATA: White blood cell is 7.1, hemoglobin 11.5, hematocrit 36.8 and platelets 220. Sodium 135, potassium 3.5, BUN 21, creatinine 1.3 and glucose 99. ASSESSMENT AND PLAN: Ms. Josie Hurst is a 46-year-old female with history of leukopenia, improved, anemia, history of hypokalemia replaced, renal insufficiency improving, proteinuria, hematuria. Seen by Dr. Louis Masterson, Infectious Disease. History of methicillin-resistant coagulase-negative Staphylococcus bacteremia, Port-A-cath related infection. The patient had apparent coagulase-negative staphylococcus in the other separate occasion on this hospitalization with chronic obstructive lung disease, lupus, Raynaud's phenomena, history of heavy smoking, now her smoking is light, chronic renal failure, spinal stenosis, history of deep vein thrombosis, inferior vena cava filter placement, right Port-A-cath. Continue daptomycin. Recommending at least 14 days of daptomycin. Port-A-cath removed. Today is post procedure day 1. Now, the patient has midline, getting antibiotics. Gastrointestinal and deep venous thrombosis prophylaxis. Repeat labs. We will follow up. Emelina Jordan MD
--- NOTE | 2017-02-01 04:55 | CON ---
DATE: 01/31/2017 HISTORY OF PRESENT ILLNESS: The patient is a 46-year-old -[place] female. The patient has multiple medical issues. The patient was admitted on the medical side for wheezing, for shortness of breath. The patient has history of mental illness. The patient needs to be followed up by psychiatrist because of the patient is on multiple psychotropic medications. The patient was seen and examined. The patient presented well. The patient reported that she has history of mental illness and multiple hospitalizations more than 5 in [facility] including. The patient also reported that she had more than 4 suicidal attempts for what the patient needed to be in the hospital. The patient reports that at the present moment she sees Dr. Oscar Mcpherson in the community and is compliant for her medications. The patient reports that she fills her medications in [facility] in [place], phone # . called and confirmed medications. The patient was on Lyrica 200 mg 3 times a day by Dr. Vergara. The patient was on Xanax 2 mg 4 times a day prescribed by Dr. Mcpherson, last time was filled in 01/11. The patient was on Seroquel 200 mg at the night time, prescribed by Dr. Oscar Mcpherson, filled in 01/13. The patient was also on Prozac 20 mg a day, filled in 01/09, prescribed Dr. Oscar Mcpherson. The patient is on olanzapine 5 mg at bedtime, prescribed by Dr. Oscar Mcpherson, filled in 01/11. The patient was also on Suboxone 8 mg, prescribed by Dr. Oscar Mcpherson, filled in 01/09. The patient also is on Viibryd 40 mg p.o. daily, prescribed by Dr. Jordan, last time the patient filled that in 01/11. The patient reports that she tolerates the medications well and the patient said that she needs to continue exact the same doses of medications and she does not want to discontinue or adjust any of the dose of medications. The patient said that she has history of violence and aggression and psychosis and right now, she feels stable on current medications. This pattern chart writer will recommend to continue everything as it is. VITAL SIGNS: Stable. MEDICATIONS: Reviewed. All medications resumed. LABORATORY DATA: Reviewed. Serology was not done. MENTAL STATUS EXAMINATION: The patient is pleasant, cooperative, good eye contact. Speech was normal rate, tone, quality, and quantity. Mood described, "I feel stable, I feel fine". Affect was constricted, but mood congruent, reactive. Thought process was coherent and goal directed. Thought content; the patient denied visual, auditory, or tactile hallucinations. Denied paranoid ideation. The patient denied thoughts of harming herself or others, denied intents or plan. Insight and judgment are fair. Impulses are well controlled. IMPRESSION: As per history, the patient has schizoaffective disorder versus bipolar or psychosis, rule out schizophrenia spectrum. PLAN: Continue current medications. Continue current management. The patient's medications were confirmed. This pattern chart writer will suggest to continue seeing Dr. Oscar Mcpherson in the community. The patient seems not to be in danger to self or others. Medications were confirmed by [facility] at [place], please see above. The patient reported tolerated medications well. No side effects observed or reported. This pattern chart writer will sign off. Should you have any questions, call me back. Reena Jacob MD
--- NOTE | 2017-02-01 05:48 | PN ---
DATE: 01/31/2017 REFERRING PHYSICIAN: Emelina Jordan MD SUBJECTIVE: The patient is lying in the bed, head at 45 degrees. Seems okay. No headaches. No rhinitis. No nausea. No vomiting. No diarrhea. No leg pain or leg swelling. OBJECTIVE: GENERAL: In no acute distress. VITAL SIGNS: Temperature 98, heart rate 62, respiratory rate is 20, blood pressure is 114/71, and pulse ox is 99% on nasal cannula. HEENT: Moist mucous membranes. Crowded airway. NECK: Supple. No JVD. LUNGS: Have a fair airflow with few rhonchi. HEART: S1 and S2. ABDOMEN: Soft, nontender. No organomegaly. EXTREMITIES: There is no edema. NEUROLOGICAL: Awake, alert. Follows simple commands. MEDICATIONS: Reviewed and noted. No new changes in medication reported since yesterday. LABORATORY DATA: Reviewed and shows hemoglobin 11.5, hematocrit 36.8, WBC 7.1, platelets 220. Sodium 139, potassium 3.5, chloride 105, bicarbonate 23, BUN 21, creatinine 1.3, glucose 99, calcium 8.7, AST 20, ALT 25, alkaline phosphatase is 80, albumin is 3.7. IMPRESSION AND PLAN: Line-related sepsis of methicillin-resistant Staphylococcus aureus in the blood, being treated with daptomycin, chronic obstructive lung disease, history of gastric bypass surgery, recurrent gastric ulcers, anxiety disorder, lupus, benzodiazepine dependent, history of opioid dependence, status post Ysrl-B-Odkjzowq removal, has a left midline catheter. Continue bronchodilator. Keep head at 45 degrees. Antibiotics as per Infectious Disease. Gastric prophylaxis. Fall precautions. Thank you and we will follow with you. Nicolle Pollack MD
== END 2017-01-31 17:56 | DRG 315 ==
LOC: ED 18:38 → ERH 20:16 → 3RNO 21:31
PROVIDERS: ADMIT Internal Medicine; ATTEND Internal Medicine
PROC: 0JPV3WZ Removal of Totally Implantable Vascular Access Device from Upper Extremity Subcutaneous Tissue and Fascia, Percutaneous Approach (ICD-10-PCS; principal; 2017-01-30)
PROC: 05PY33Z Removal of Infusion Device from Upper Vein, Percutaneous Approach (ICD-10-PCS; 2017-01-30)
DX: T80.211A Bloodstream infection due to central venous catheter, initial encounter (principal); J44.1 Chronic obstructive pulmonary disease with (acute) exacerbation; F11.20 Opioid dependence, uncomplicated; F13.20 Sedative, hypnotic or anxiolytic dependence, uncomplicated; Z68.41 Body mass index [BMI] 40.0-44.9, adult; M32.9 Systemic lupus erythematosus, unspecified; E87.5 Hyperkalemia; D50.9 Iron deficiency anemia, unspecified; E66.01 Morbid (severe) obesity due to excess calories; E87.8 Other disorders of electrolyte and fluid balance, not elsewhere classified; F29 Unspecified psychosis not due to a substance or known physiological condition; F41.9 Anxiety disorder, unspecified; I73.00 Raynaud's syndrome without gangrene; M48.00 Spinal stenosis, site unspecified; K21.9 Gastro-esophageal reflux disease without esophagitis; N18.9 Chronic kidney disease, unspecified; F17.210 Nicotine dependence, cigarettes, uncomplicated; G89.4 Chronic pain syndrome; F32.9 Major depressive disorder, single episode, unspecified; E78.1 Pure hyperglyceridemia; E87.6 Hypokalemia; B95.7 Other staphylococcus as the cause of diseases classified elsewhere; Y84.8 Other medical procedures as the cause of abnormal reaction of the patient, or of later complication, without mention of misadventure at the time of the procedure; Z87.11 Personal history of peptic ulcer disease; Z98.84 Bariatric surgery status; Z86.718 Personal history of other venous thrombosis and embolism

== ENCOUNTER 2017-01-31 17:56 | Inpatient (IN) | payer OTHER, MEDICAID ==
[2017-01-31] MEDS ORDERED: Albuterol-Ipratrop 3 mg / 0.5 (3 ml) UD IH PRN (19:47)
[2017-01-31] MEDS ORDERED: POLYETHYLENE GLYCOL 3350 17 GM/Dose PACKET PO ONE (20:06)
[2017-01-31 21:01] VITALS: BMI 45.7
[2017-01-31] MEDS: Sucralfate 1 gm/10 ml Oral Susp UD PO SCH (22:12)
[2017-02-01] MEDS: Pantoprazole 40 mg EC Tab PO SCH (05:23)
[2017-02-01 07:42] LABS: HEMATOCRIT 37.4 % (36.0-48.0); MEAN CELL VOLUME 81.7 fl (80.0-105.0); MEAN CORPUSCULAR HEMOGLOBIN 25.1 pg (25.0-35.0); MEAN CORPUSCULAR HGB CONC 30.7 g/dl (31.0-37.0); MEAN PLATELET VOLUME 11.2 fl (7.0-11.0); RED CELL DISTRIBUTION WIDTH 15.9 % (11.5-14.5)
[2017-02-01 08:10] LABS: ALB/GLOB RATIO 1.1 (1.1-1.8); BILIRUBIN,TOTAL 0.4 mg/dL (0.2-1.3); CALCIUM 9.2 mg/dL (8.4-10.5); POTASSIUM 3.4 mmol/L (3.6-5.0); TOTAL PROTEIN 7.2 g/dL (5.8-8.3)
[2017-02-01] MEDS: Sucralfate 1 gm/10 ml Oral Susp UD PO SCH ×4 (08:47→21:17)
[2017-02-01] MEDS ORDERED: PREGABALIN 200 MG PO SCH (10:00)
[2017-02-01] MEDS ORDERED: Home Med 1 UNIT PO SCH (10:00)
[2017-02-01] MEDS: Enoxaparin 40 mg Syringe SC SCH (10:39)
[2017-02-01] MEDS ORDERED: DAPTOmycin 500 mg Inj (Cubicin) IV SCH (11:00)
[2017-02-01] MEDS: VIIBRYD 40 MG PO SCH (12:06)
[2017-02-01 13:31] LABS: TROPONIN I < 0.01 ng/mL
--- NOTE | 2017-02-01 14:51 | CP.PCM.HP ---
<Luann Michaud - Last Filed: 02/01/17 22:52> History of Present Illness - History of Present Illness History of Present Illness: 46 yr female w/ COPD, gastric bypass, recurrent gastric ulcers , GERD, Lupus, raynauds, chronic renal failure, spinal stenosis, morbid obesity , anxiety, depression, psychosis, DVT w/ IVC filter, benzodiazepine dependent. Recurrent staph infection in her port-a-cath s/p removal. She denies any headaches, dizziness/lightheadedness, SOB, chest pain, diarrhea, constipation or urinary frequency. No distress noted. Review of Systems - Constitutional Constitutional: Fatigue - EENT Eyes: As Per HPI Ears: As Per HPI Nose/Mouth/Throat: As Per HPI - Cardiovascular Cardiovascular: As Per HPI - Respiratory Respiratory: As Per HPI - Gastrointestinal Gastrointestinal: As Per HPI - Genitourinary Genitourinary: As Per HPI - Musculoskeletal Musculoskeletal: As Per HPI - Integumentary Integumentary: As Per HPI - Neurological Neurological: As Per HPI - Psychiatric Psychiatric: As Per HPI - Endocrine Endocrine: As Per HPI - Hematologic/Lymphatic Hematologic: As Per HPI Past Patient History - Infectious Disease Hx of Infectious Diseases: None - Tetanus Immunizations Tetanus Immunization: Up to Date - Past Social History Smoking Status: Light Smoker < 10 Cigarettes Daily - CARDIAC Hx Pacemaker: No - PULMONARY Hx Chronic Obstructive Pulmonary Disease (COPD): Yes - NEUROLOGICAL Hx Neurological Disorder: No - HEENT Hx HEENT Problems: No - RENAL Hx Chronic Kidney Disease: Yes Hx Renal Failure: Yes - ENDOCRINE/METABOLIC Hx Endocrine Disorders: Yes Hx Systemic Lupus Erythematosus: Yes - HEMATOLOGICAL/ONCOLOGICAL Hx Cancer: No - INTEGUMENTARY Hx Dermatological Problems: No - MUSCULOSKELETAL/RHEUMATOLOGICAL Hx Falls: Yes - GASTROINTESTINAL Hx Gastrointestinal Disorders: Yes (hx GERD, GI ulcers) - GENITOURINARY/GYNECOLOGICAL Hx Genitourinary Disorders: No - PSYCHIATRIC Hx Psychophysiologic Disorder: Yes Hx Anxiety: Yes Hx Depression: Yes Hx Emotional Abuse: No Hx Physical Abuse: No - SURGICAL HISTORY Hx Mastectomy: No - ANESTHESIA Hx Anesthesia Reactions: No Hx Malignant Hyperthermia: No Meds Allergies/Adverse Reactions: Allergies Allergy/AdvReac Type Severity Reaction Status Date / Time No Known Allergies Allergy Verified 02/01/17 00:38 Physical Exam - Constitutional Appears: Well, Chronically Ill - Head Exam Head Exam: ATRAUMATIC, NORMAL INSPECTION, NORMOCEPHALIC - Eye Exam Eye Exam: EOMI, Normal appearance, PERRL - ENT Exam ENT Exam: Mucous Membranes Moist, Normal Exam - Neck Exam Neck exam: Positive for: Normal Inspection - Respiratory Exam Respiratory Exam: Clear to Auscultation Bilateral, NORMAL BREATHING PATTERN - Cardiovascular Exam Cardiovascular Exam: REGULAR RHYTHM - GI/Abdominal Exam GI & Abdominal Exam: Normal Bowel Sounds, Soft. absent: Tenderness - Extremities Exam Extremities exam: Positive for: normal inspection - Back Exam Back exam: NORMAL INSPECTION - Neurological Exam Neurological exam: Alert, CN II-XII Intact, Normal Gait, Oriented x3, Reflexes Normal - Psychiatric Exam Psychiatric exam: Normal Affect, Normal Mood - Skin Skin Exam: Dry, Intact, Normal Color, Warm Additional comments: L arm PICC, R anterior chest dressing C/D/I Results - Vital Signs Recent Vital Signs: Last Vital Signs Temp 98.1 F 01/31/17 20:47 Pulse 66 01/31/17 20:47 Resp 18 01/31/17 20:47 BP 110/71 02/01/17 10:38 Pulse Ox - Labs Result Diagrams: 02/01/17 07:10 02/01/17 07:10 Labs: Laboratory Results - last 24 hr 02/01/17 02/01/17 02/01/17 07:10 07:10 07:10 WBC 7.0 RBC 4.58 Hgb 11.5 L Hct 37.4 MCV 81.7 MCH 25.1 MCHC 30.7 L RDW 15.9 H Plt Count 227 MPV 11.2 H ESR 20 Sodium 141 Potassium 3.4 L Chloride 106 Carbon Dioxide 24 Anion Gap 15 BUN 20 Creatinine 1.3 H Est GFR ( Amer) 54 Est GFR (Non-Af Amer) 44 Random Glucose 92 Calcium 9.2 Total Bilirubin 0.4 AST 22 ALT 21 Alkaline Phosphatase 71 Lactate Dehydrogenase Total Creatine Kinase Troponin I Total Protein 7.2 Albumin 3.8 Globulin 3.4 Albumin/Globulin Ratio 1.1 02/01/17 07:10 WBC RBC Hgb Hct MCV MCH MCHC RDW Plt Count MPV ESR Sodium Potassium Chloride Carbon Dioxide Anion Gap BUN Creatinine Est GFR ( Amer) Est GFR (Non-Af Amer) Random Glucose Calcium Total Bilirubin AST ALT Alkaline Phosphatase Lactate Dehydrogenase 569 Total Creatine Kinase 127 Troponin I < 0.01 Total Protein Albumin Globulin Albumin/Globulin Ratio Assessment & Plan (1) Bloodstream infection due to port-a-cath Status: Acute (2) COPD (chronic obstructive pulmonary disease) Status: Chronic (3) Presence of IVC filter Status: Chronic (4) Pulmonary hypertension Status: Suspected (5) Lupus Status: Chronic (6) Chronic pain Status: Chronic - Assessment and Plan (Free Text) Plan: In TCU for continued antibiotic treatment and steroid tapering. Tolerating plan of care well. Consults: ID = Dr. Masterson = Dapotomycin Pulmonary = Dr. Pollack = GI prophlaxis, taper steroids. Reviewed: ECG = (-) Sinus tachy CXR = (-) WNL ECHO = (+) EF WNL%, mild concentric LVH, mild pulmonary HTN R upper extremity US = (-) NEG DVT - Date & Time Date: 02/01/17 Time: 11:00 Decision To Admit - . Bed Request Type: TRCU (steroids and antibiotics) <Emelina Jordan - Last Filed: 02/03/17 18:00> Present on Admission - Present on Admission Any Indicators Present on Admission: No History of DVT/PE: No History of Uncontrolled Diabetes: No Urinary Catheter: No Decubitus Ulcer Present: No Results - Vital Signs Recent Vital Signs: Last Vital Signs Temp 98 F 02/03/17 11:32 Pulse 92 H 02/03/17 11:32 Resp 18 02/03/17 11:32 BP 113/67 02/03/17 11:32 Pulse Ox 98 02/03/17 11:32 - Labs Result Diagrams: 02/01/17 07:10 02/01/17 07:10 Assessment & Plan - Assessment and Plan (Free Text) Plan: pt is seen and examined at bed side , looking comfortable , agreed all above , getting i/v anb . and pt , id is on the case , will f/u
[2017-02-01] MEDS: TraMADol/Apap 37.5/325 mg Tab PO PRN (21:21)
[2017-02-02] MEDS: TraMADol/Apap 37.5/325 mg Tab PO PRN ×2 (02:57→21:40)
--- NOTE | 2017-02-02 04:21 | CON ---
PULMONARY CONSULTATION DATE: 02/01/2017 REFERRING PHYSICIAN: Emelina Jordan MD REASON FOR CONSULT: Chronic obstructive lung disease. HISTORY OF PRESENT ILLNESS: This is a 46-year-old female well known to me from previous admission, admitted to acute side of the hospital with cough and shortness of breath, found to be in exacerbation of chronic obstructive lung disease and septic workup has done. Blood culture came back positive and then she tells the history that she had been admitted to other two hospitals with blood cultures positive, been treated and discharged, so Infectious Disease consult was called and decision was made to take off the Jbzv-G-Ovpqezno, which was done. The patient placed on antibiotics. She was also on high dose of steroids, slowly tapered down, presently feels better, and admit to TICU for continued care. PAST MEDICAL HISTORY: Gastric bypass surgery in the remote past with recurrent gastric ulcers, history of opiates dependent, benzodiazepine dependent, lupus, chronic lung disease, renal insufficiency, Raynaud's phenomenon, history of DVT, history of IVC filter, anemia requiring transfusion, GERD, and obesity. ALLERGIES: NONE KNOWN. SOCIAL HISTORY: Active smoker. Denies any alcohol use. FAMILY HISTORY: No significant cardiopulmonary disease reported. MEDICATIONS: She is on Carafate 1 g a.c. and at bedtime, clonidine patch 0.1 mg weekly, CellCept 500 mg twice a day, daptomycin q.24 hours, DuoNeb q.3 hours p.r.n., Lasix 40 mg twice a day, Lovenox 40 mg daily, Lyrica 200 mg 3 times a day, Neurontin 300 mg 3 times a day, Pepcid 20 mg p.o. a.c., prednisone 10 mg daily, Protonix 40 mg daily, Prozac 40 mg daily, Seroquel 400 mg at bedtime, scopolamine patch q.72 hours, Tylenol p.r.n. basis, Ultracet 37.5/325 one tab q.6 hours p.r.n., Xanax 2 mg four times a day, Zanaflex 2 mg q.8 hours, Zofran p.r.n. basis, and Zyprexa 5 mg at bedtime. REVIEW OF SYSTEMS: No headache. No rhinitis. No nausea. No vomiting. No dysuria. No leg pain or leg swelling. PHYSICAL EXAMINATION: GENERAL: Sitting at the side of the bed with therapist at the bedside. No acute distress. VITAL SIGNS: Temperature is 98, heart is 89, respiratory rate is 20, blood pressure is 127/78, and pulse oximetry is 100% on room air. HEENT: Moist mucous membranes. Crowded airway. NECK: Short and thick neck. LUNGS: Has a fair airflow with rhonchi. HEART: S1 and S2. ABDOMEN: Soft and nontender. No organomegaly. EXTREMITIES: No edema. NEUROLOGIC: Awake and alert. Follows simple command. LABORATORY DATA: Shows hemoglobin 11.5, hematocrit 37.4, WBC 7.0, and platelet is 227. Sodium 141, potassium 3.4, chloride 106, bicarbonate 24, BUN 20, creatinine 1.3, glucose 92, and calcium 9.2. AST 22, ALT 21 and alk phos is 71. Troponin is less than 0.01. C-reactive protein 1.52. Albumin is 3.8. IMPRESSION AND PLAN: Line related sepsis with bacteremia, which has methicillin-resistant Staphylococcus aureus, on daptomycin, chronic obstructive lung disease, gastric bypass surgery, recurrent gastric ulcer, anxiety disorder, lupus, benzodiazepine dependent, opiates dependent, [id number] has been removed, and has a midline in the left upper extremity. We will decrease Xanax back to 1 mg at bedtime. Continue bronchodilator. We will taper off prednisone. Antibiotics as per Infectious Disease, gastric prophylaxis, deep venous prophylaxis, and fall precaution. Thank you and we will follow with you. Nicolle Pollack MD
[2017-02-02] MEDS: Pantoprazole 40 mg EC Tab PO SCH (05:19)
[2017-02-02] MEDS: Sucralfate 1 gm/10 ml Oral Susp UD PO SCH ×4 (07:45→21:27)
--- NOTE | 2017-02-02 08:39 | CON ---
DATE: 02/01/2017 The patient is in room 317, bed 1, seen earlier today. CHIEF COMPLAINT: Port-a-Cath infection of several days. HISTORY OF PRESENT ILLNESS: A 46-year-old female with lupus, chronic obstructive lung disease, Raynaud's phenomenon, renal disease, spinal stenosis, DVT, anemia with history of IVC filter, gastric bypass, and Port-a-Cath and THERE IS NO KNOWN ALLERGIES and who is admitted to the acute care with a diagnosis of COPD, was diagnosed with methicillin-resistant Staph coag-negative bacteremia secondary to Port-a-Cath, was taken out and had the echo, which was negative for vegetations and then started on daptomycin and now transferred to transitional care for further completion of therapy. REVIEW OF SYSTEMS: Reveals the patient is doing well. No fevers. No chills. No nausea. No vomiting. No chest pain. PAST MEDICAL HISTORY: Significant for lupus and COPD, Raynaud's phenomenon, renal disease, spinal stenosis, DVT, anemia. PAST SURGICAL HISTORY: Significant for IVC filter and gastric bypass. The patient has a Port-a-Cath. ALLERGIES: THE PATIENT HAS NO KNOWN ALLERGIES. PHYSICAL EXAMINATION VITAL SIGNS: The patient is in bed with a temperature of 98. Blood pressure is 114/70, respiratory rate of 16. HEENT: Examination of HEENT is unremarkable. NECK: Supple. LUNGS: Decreased breath sounds. HEART: Exam normal S1 and S2. ABDOMEN: Examination is soft, nontender. LABORATORY DATA: Reveals the patient's white count of 7, hemoglobin of 11, sed rate of 20, and chemistry reveals a BUN of 20, creatinine of 1.3, and CPK is 127. ASSESSMENT AND PLAN: A 46-year-old female with lupus, chronic obstructive pulmonary disease, Raynaud's phenomenon, renal disease, spinal stenosis, deep vein thrombosis, anemia with methicillin-resistant Staphylococcus coagulase-negative bacteremia secondary to Port-a-Cath and on day #2 of 14 days minimum daptomycin. Check on the complete blood count, SMA-18, sed rate, C-reactive protein, and . We will follow closely with you. Louis Masterson MD [facility] # [id number]
[2017-02-02] MEDS: Enoxaparin 40 mg Syringe SC SCH (10:37)
[2017-02-02] MEDS: VIIBRYD 40 MG PO SCH (10:37)
--- NOTE | 2017-02-02 22:47 | PN ---
DATE: 02/02/2017 SUBJECTIVE: The patient is seen earlier this morning in room 317. The patient is tolerating the antibiotic well. No nausea. No vomiting. No chest pain. No rash. No diarrhea. PHYSICAL EXAMINATION: VITAL SIGNS: Temperature is , respiratory rate of 20. MEDICATIONS: Review of orders reveals the patient to be on daptomycin. The patient is also on prednisone at 5 mg a day. ASSESSMENT AND PLAN: A 46-year-old female with morbid obesity, body mass index of 45 with a lupus, history of systemic lupus erythematosus, chronic obstructive lung disease, Raynaud's phenomenon, renal disease, spinal stenosis, deep venous thrombosis, anemia, inferior vena cava filter, gastric bypass, and Port-A-Cath with no evidence of any allergies, who was admitted with methicillin-resistant Staphylococcus coagulase negative bacteriemia secondary to Port-A-Cath. The Port-A-Cath was taken out, now completing the daptomycin therapy, due to the patient is on SSI, unable to use linezolid and drug interaction and due to renal function, unable to use vancomycin. At this point, he is day #3 of 14 days of daptomycin. We will continue to monitoring side effects or development of any side effects. Louis Masterson MD
--- NOTE | 2017-02-03 02:48 | PN ---
PULMONARY PROGRESS NOTE DATE: 02/02/2017 REFERRING PHYSICIAN: Emelina Jordan MD SUBJECTIVE: She is lying in the bed. Head at 45 degrees. Upset during the day time because I stopped her Xanax 2 mg q. 8 hours and switched to Xanax 1 mg at bedtime. Apparently, she was seen by Psychiatry nurse practitioner, had mild cough, no sputum production. No nausea. No vomiting. No diarrhea. No leg pain or leg swelling. OBJECTIVE: GENERAL: In no acute distress. VITAL SIGNS: Temperature 98, heart rate 83, respiratory rate is 18, blood pressure is 134/77 and pulse oximetry is 99% on room air. HEENT: Moist mucous membranes. Crowded airway. Mallampati score is IV. NECK: Supple. No JVD. LUNGS: Has a few scattered rhonchi. HEART: S1 and S2. ABDOMEN: Soft and nontender. No organomegaly. EXTREMITIES: No edema. NEUROLOGICAL: Awake and alert. Follows simple commands. MEDICATIONS: She is on Carafate 1 g a.c. and at bedtime, Catapres 0.1 mg weekly, CellCept 500 mg twice a day, daptomycin 730 mg daily, DuoNeb q.3 hours p.r.n., Lasix 40 mg twice a day, Levemir 40 units subcutaneously daily, Lyrica 200 mg 3 times a day, Neurontin 300 mg 3 times a day, Pepcid 20 mg daily, prednisone 5 mg daily, Protonix 40 mg daily, Prozac 40 mg daily, Seroquel 400 mg at bedtime, transdermal scopolamine patch q. 72 hours, Tylenol p.r.n. basis, Ultracet 37.5/325 one tablet q. 6 hours p.r.n., Xanax 2 mg 3 times a day p.r.n., Zanaflex 2 mg 3 times a day, Zofran 4 mg q. 4 hours p.r.n. and Zofran 4 mg q. 6 hours for nausea and vomiting and Zyprexa 5 mg at bedtime. LABORATORY DATA: Reviewed and noted. No new lab is available since yesterday. IMPRESSION AND PLAN: Line related sepsis with bacteremia, Hpeq-G-Xzainevw has been discontinued left midline, has a methicillin-resistant Staphylococcus aureus in the blood, on daptomycin, chronic obstructive lung disease, gastric bypass surgery in the past, history of recurrent gastric ulcer, anxiety disorder, lupus, benzodiazepine dependent, at one point she has opiates dependent. I had a long discussion with the patient and nursing staff. We will discontinue Xanax 1 mg, which I wrote order, but continue benzodiazepine and antipsychotic medication as per Psychiatry. We will continue inhaled bronchodilator. Keep head at 45 degrees. Gastric prophylaxis. Continue antibiotics. Thank you and we will follow with you. Nicolle Pollack MD
[2017-02-03] MEDS: Pantoprazole 40 mg EC Tab PO SCH (05:11)
[2017-02-03] MEDS: Enoxaparin 40 mg Syringe SC SCH (05:11)
--- NOTE | 2017-02-03 07:36 | PN ---
DATE: 02/02/2017 SUBJECTIVE: The patient is a 46-year-old female. The patient is seen and examined on the bedside, looking comfortable. I saw the patient on 02/02/2017. Sitting on the chair. Getting Physical Therapy. No nausea or vomiting. No diarrhea. No hematuria or hematochezia. No swelling of the legs. No chest pain or palpitation and reconditioned. PHYSICAL EXAMINATION VITAL SIGNS: Temperature 98.6, pulse 83, blood pressure 134/77 and respiratory rate 16. HEENT: Head is normocephalic and atraumatic. Eyes; PERRLA. Extraocular muscles are intact. Conjunctivae clear. Nose patent. Mucous membranes moist. NECK: Supple. No carotid bruit, JVD or thyromegaly. CHEST: Bilaterally symmetrical. HEART: S1 and S2 positive. LUNGS: Clear to auscultation. ABDOMEN: Soft. Bowel sounds present. No organomegaly. EXTREMITIES: No edema. No cyanosis. NEUROLOGIC: The patient is awake and alert. Moving all 4 extremities. No focal deficits. MEDICATIONS: Carafate, Catapres, CellCept, normal saline, daptomycin, Lasix, Lovenox, Lyrica, Neurontin, Pepcid, prednisone, Prozac and Seroquel. LABORATORY DATA: We do not have recent labs today, but I reviewed old labs. C-reactive protein is 1.50. Troponin less than 0.01. ASSESSMENT: Ms. Josie Hurst is a 46-year-old lady with hypokalemia, history of anemia, seen by Dr. Louis Masterson, Infectious Disease, has obesity, history of systemic lupus erythematosus, chronic obstructive lung disease, Raynaud's phenomenon, renal disease, spinal stenosis, deep vein thrombosis, anemia, history of vena cava filter, gastric bypass Port-A-Cath with no evidence of any allergies, who was admitted with methicillin-resistant Staphylococcus coagulase-negative bacteremia secondary to Port-A-Cath. This Port-A-Cath was taken out now completing the daptomycin therapy due to the patient is on SSI. Unable to use Lasix and drug interaction and due to renal function, unable to use vancomycin. At this point day 3 of 14 daptomycin as per Infectious Disease. We will be monitoring developing of side effects, history of lupus, history of narcotic abuse, history of gastric bypass in remote past, recurrent gastric ulcers, history of opiates and benzodiazepine dependency, renal insufficiency, Raynaud's phenomenon with history of deep venous thrombosis, history of inferior vena cava filter, anemia requiring transfusion, gastroesophageal reflux disease and dyspepsia. PLAN: Continue to the present treatment. Psych is on the case to adjust Psych medication. Discussion done with Psych nurse practitioner. Gastrointestinal and deep venous thrombosis prophylaxis. Repeat labs. We will follow up. Emelina Jordan MD MTDD
[2017-02-03] MEDS: Sucralfate 1 gm/10 ml Oral Susp UD PO SCH ×4 (07:49→21:12)
--- NOTE | 2017-02-03 09:04 | CON ---
DATE: 02/02/2017 She is being seen today for psychiatric consultation. HISTORY OF PRESENT ILLNESS: The patient is a 46-year-old -[place] female, overweight. She is seen in her hospital bed. She is being seen per the unit policy because she is on psychotropic medication. This client had been on the medical floor prior to being transferred to [facility]. She had originally been admitted for recurrent Staph infection in her Port-A-Cath and she is status post removal. She has a medical history of COPD, gastric bypass, recurrent gastric ulcer, GERD, lupus, Raynaud's, chronic renal failure, spinal stenosis, morbid obesity, and psychiatrically, history of anxiety, depression, and psychosis. She is additionally benzodiazepine dependent. The patient has a long psychiatric history. She has been hospitalized multiple times. Most recent hospitalization was at that was an involuntary hospitalization, prior to that, she was in [facility]. She has been here before and indicates that she has a long psychiatric history. She has been diagnosed with bipolar with schizophrenic tendencies. The patient states she hears voices at her baseline, but that are very and they do not bother her, but when she gets stressed, she will restarts to hallucinate and then she either tries to hurt herself or gets very psychotic and needs to be hospitalized. She is medication compliant in the community. She sees Dr. Oscar Mcpherson on an outpatient basis. She sees him monthly. Her outpatient medications are olanzapine 5 mg one daily, Prozac 20 mg one in the morning, Seroquel 400 mg at bedtime, and 8 mg of Xanax daily. These medications were all verified through her pharmacy, which is [facility] and it is necessary that she remain on these medications in order to maintain her current level of stability. She lives with her . She indicates that she is stable on these particular medications and is reliable in her followup. She has an appointment with Dr. Mcpherson in February for followup. MENTAL STATUS EXAMINATION: The patient is alert and oriented x3. Eye contact is good. Behavior is somewhat agitated. Client is upset because evidently her doctor reduced her Xanax from 8 mg a day to 1 mg at night. She has not received any Xanax yesterday. Due to fact that the client is benzodiazepine dependent and has been on this for the long-term, it is medically necessary for her to remain at this dose and is not to be tapered much more slowly than 7 mg in 1 day. Client indicates that when she is agitated, she can become violent; however, I reassured her that I would communicate with her primary doctor here in order to get the situation resolved. I spoke with the nurse in charge of this client's care, they will put forth the call to her physician. The patient's affect is somewhat labile; however, this patient is known to me. It appears to be situational. Her mood is constricted. Her affect is constricted. She denies being suicidal or homicidal. She denies the presence of hallucinations, delusion or paranoia. Her concentration and focus, she indicates are a little bit off. Her memory both short and usp appears adequate. Her appetite, she indicates is good and she indicates she did sleep better last night. PLAN: We will continue for another 10 days medically due to a need for antibiotic infusion to clear infection from her port. It is important that she maintain her psychiatric medications at the present dosages to prevent the patient from having any untoward effects from abrupt cessation or abrupt lowering of her dosage of Xanax. She has a followup appointment with Dr. Mcpherson. Her primary doctor has been informed of the situation and this is also being discussed with Dr. Jacob. I will continue to follow the patient at this time. Amparo Deng APN
[2017-02-03] MEDS: VIIBRYD 40 MG PO SCH (10:50)
--- NOTE | 2017-02-03 17:00 | CP.PCM.PN ---
Subjective - Date & Time of Evaluation Date of Evaluation: 02/03/17 Time of Evaluation: 11:20 - Subjective Subjective: Comfortable, no fevers, not in distress, no SOB, no cough, no diarrhea. Objective - Vital Signs/Intake and Output Vital Signs (last 24 hours): Temp Pulse Resp BP Pulse Ox 97.6 F 69 19 112/70 100 02/03/17 09:08 02/03/17 09:08 02/03/17 09:08 02/03/17 09:08 02/03/17 09:08 Intake and Output: 02/03/17 02/03/17 06:59 18:59 Intake Total 620 Balance 620 - Medications Medications: Current Medications Acetaminophen (Tylenol 325mg Tab) 650 mg PO Q4H PRN; Protocol PRN Reason: Pain, Mild (1-3) Albuterol/Ipratropium (Duoneb 3 Mg/0.5 Mg (3 Ml) Ud) 3 ml IH Q3H PRN; Protocol PRN Reason: Shortness of Breath Last Admin: 02/02/17 21:51 Dose: 3 ml Alprazolam (Xanax) 2 mg PO TID PRN; Protocol PRN Reason: Anxiety, Agitation Last Admin: 02/03/17 05:11 Dose: 2 mg Clonidine HCl (Catapres Tts1 0.1 Mg/24 Hr) 1 patch TD MON [facility] PRN Reason: Protocol Enoxaparin Sodium (Lovenox) 40 mg SC 0600 [facility] PRN Reason: Protocol Last Admin: 02/03/17 05:11 Dose: 40 mg Famotidine (Pepcid) 20 mg PO AC [facility] PRN Reason: Protocol Last Admin: 02/02/17 18:33 Dose: 20 mg Fluoxetine HCl (Prozac) 40 mg PO DAILY [facility] PRN Reason: Protocol Last Admin: 02/02/17 10:39 Dose: 40 mg Furosemide (Lasix) 40 mg PO BID [facility] PRN Reason: Protocol Last Admin: 02/02/17 18:27 Dose: 40 mg Gabapentin (Neurontin) 300 mg PO TID [facility] PRN Reason: Protocol Last Admin: 02/02/17 18:34 Dose: 300 mg Home Med (Home Med) 1 unit PO QAM [facility] Last Admin: 02/02/17 10:37 Dose: 1 unit Daptomycin 730 mg/ Sodium (Chloride) 100 mls @ 200 mls/hr IV Q24H ON LICENSE OF [facility] Stop: 02/15/17 11:01 Last Admin: 02/02/17 11:55 Dose: 200 mls/hr Mycophenolate Mofetil (Cellcept Cap) 500 mg PO BID ON LICENSE OF [facility] Last Admin: 02/02/17 18:27 Dose: 500 mg Olanzapine (Zyprexa) 5 mg PO HS [facility] PRN Reason: Protocol Last Admin: 02/02/17 21:29 Dose: 5 mg Ondansetron HCl (Zofran Inj) 4 mg IVP Q4H PRN; Protocol PRN Reason: Nausea/Vomiting Ondansetron HCl (Zofran Odt) 4 mg SL Q6 PRN; Protocol PRN Reason: Nausea/Vomiting Pantoprazole Sodium (Protonix Ec Tab) 40 mg PO 0600 ON [facility] OF [facility] PRN Reason: Protocol Last Admin: 02/03/17 05:11 Dose: 40 mg Prednisone (Prednisone Tab) 5 mg PO 0800 ON [facility] OF [facility] PRN Reason: Protocol Pregabalin (Lyrica) 200 mg PO TID ON LICENSE OF [facility] Last Admin: 02/02/17 18:30 Dose: 200 mg Quetiapine Fumarate (Seroquel) 400 mg PO HS ON LICENSE OF [facility] Last Admin: 02/02/17 21:28 Dose: 400 mg Scopolamine (Transderm-Scop) 1 patch TD Q72H ON LICENSE OF [facility] PRN Reason: Protocol Last Admin: 02/01/17 21:21 Dose: 1 patch Sucralfate (Carafate Oral Susp) 1 gm PO ACHS ON LICENSE OF [facility] PRN Reason: Protocol Last Admin: 02/02/17 21:27 Dose: 1 gm Tizanidine HCl (Zanaflex) 2 mg PO 0600,1400,2200 ON LICENSE OF [facility] PRN Reason: Protocol Last Admin: 02/03/17 05:12 Dose: 2 mg Tramadol/Acetaminophen (Ultracet 37.5/325 Mg) 1 tab PO Q6H PRN; Protocol PRN Reason: Pain, moderate (4-7) Last Admin: 02/02/17 21:40 Dose: 1 tab - Labs Labs: 02/01/17 07:10 02/01/17 07:10 - Constitutional Appears: Non-toxic - Head Exam Head Exam: NORMAL INSPECTION - ENT Exam ENT Exam: Mucous Membranes Moist - Neck Exam Neck Exam: absent: Lymphadenopathy, Meningismus - Respiratory Exam Respiratory Exam: Decreased Breath Sounds - Cardiovascular Exam Cardiovascular Exam: +S1, +S2 - GI/Abdominal Exam GI & Abdominal Exam: Soft. absent: Tenderness Assessment and Plan - Assessment and Plan (Free Text) Plan: Assessment Methicillin-resistant Coagulase negative staph bacteremia consider port-a-cath related infection (patient has apparent coagulase neg staph bacteremia on 2 other separate occasions in other hospitals this year) S/P port removal POD #4 COPD exacerbation, clinically improving SLE COPD Raynaud's phenomenon chronic renal failure spinal stenosis history of DVT S/P IVC filter placement chronic anemia on intermittent iron transfusion therapy GERD S/P gastric bypass surgery S/P right port-a-cath placement morbid obesity with BMI 43 Plan continue Daptomycin day 4 of 10-14 days of antbiotics after port removal; repeat blood cx are negative from the port and a peripheral vein; 2D echo does not show vegetations; doppler U/S of right upper extremity veins does not show DVT HIV test is negative will continue to monitor clinically
--- NOTE | 2017-02-03 22:11 | CON ---
DATE: HISTORY OF PRESENT ILLNESS: Patient is a 46-year-old female, who has a history of schizoaffective disorder as well as multiple hospitalizations including stay hospitalizations, who was currently seen by Dr. Oscar Mcpherson in the community and compliant with the medications. She is being seen by Psychiatry, and I have reviewed Dr. Jacob's notes from 01/31/2017 and [employer] notes from 02/02/2017. Dr. Jacob's note indicated that she confirmed patient's medication doses by calling [facility] in [place] and that the patient was taking Xanax 2 mg four times daily, Seroquel 200 mg at night, Prozac 20 mg daily, and Zyprexa 5 mg at night as well as Suboxone 8 mg, and Viibryd [address] Jacob indicated that patient should be continued on exact same doses and [employer], note indicated that the patient did not want any changes to her medications. I met with the patient at bedside today and she is quite coherent, alert, oriented, and well aware of the current circumstances. She expresses some frustration that her Xanax doses keep being changed by medical team. She seems very well oriented and in good control. She indicated she is doing better now that she received her Xanax dose last night as well as this morning. She also reports as she slept well last night. She denies having any depression or any hallucinations though does report, has a history of both. Right now, she is very concerned about her medical issues. She denies any issues with her medications at this time, but she is specific that Xanax is to be given four times a day and not three times a day. Thought process is coherent and patient is consistent with her responses. Her insight and judgement are considered to be fair. Vital signs were reviewed, so were recent labs. MEDICTIONS: Relevant psychiatric medications include Xanax 2 mg p.o. t.i.d. p.r.n., Prozac 40 mg daily, Zyprexa 5 mg at bedtime, Seroquel 400 mg at bedtime. IMPRESSION: Schizoaffective disorder by history. We will continue medications at current doses. Patient appears to be stable with these doses and these doses include Seroquel 400 mg p.o. at bedtime versus 200 mg at bedtime, which was prescribed by Dr. Mcpherson and confirmed by Dr. Jacob on 01/31/2017. We will continue with Zyprexa 5 mg at bedtime and this is the same dose confirmed by Dr. Jacob, prescribed by Dr. Mcpherson. We will continue Prozac 40 mg p.o. daily. Please note that Dr. Jacob's note on 01/31/2017 indicated that patient has a dose of 20 mg daily, prescribed by Dr. Mcpherson. Xanax 2 mg t.i.d. p.r.n. will be increased to 2 mg q.i.d. p.r.n. Patient is in fair control at this time. Psychiatry will sign off. Please re-consult if there are any acute issues or changes in the patient's presentation. Mago Estrada MD
[2017-02-04] MEDS ORDERED: Pantoprazole 40mg/100ml IVPB 40 MG/100 ML BAG IVPB ONE (00:08)
[2017-02-04] MEDS ORDERED: Alum-Mag Hydrox-Simethicone Susp (30 mL) PO ONE (00:09)
[2017-02-04] MEDS ORDERED: Morphine 2 mg/ml ISec IVP ONE ×2 (00:10→01:26)
--- NOTE | 2017-02-04 00:20 | PN ---
DATE: 02/03/2017 PULMONARY PROGRESS NOTE REFERRING PHYSICIAN: Dr. Jordan. SUBJECTIVE: She is sitting side of the bed. Night was unremarkable. Feels better. Has mild cough. Requiring nebulizer treatment. Clear lungs after that. No nausea. No vomiting. No diarrhea. No leg pain or leg swelling. OBJECTIVE: GENERAL: In no acute distress. VITAL SIGNS: Temperature is 98, heart rate 76, respiratory rate is 20, blood pressure 93/50, pulse oximetry is 98% on room. HEENT: Moist mucous membrane. Crowded airway. Mallampati score is IV. NECK: Supple. No JVD. LUNGS: Has a fair airflow with rhonchi. HEART: S1, S2. ABDOMEN: Soft and nontender. No organomegaly. EXTREMITIES: There is no edema. NEUROLOGIC: Awake and alert. Follows simple commands. MEDICATIONS: She is on Carafate 1 g a.c. and at bedtime, Catapres patch 0.1 mg q. 7 days, CellCept 500 mg twice a day, daptomycin 730 mg q. 24 hours, DuoNeb q. 3 hours p.r.n., Lasix 40 mg twice a day, Lovenox 40 mg subcu daily, Lyrica 200 mg 3 times a day, gabapentin 300 mg 3 times a day, Pepcid 20 mg daily, prednisone 5 mg daily, Protonix 40 mg daily, Prozac 40 mg daily, Seroquel 400 mg at bedtime, transdermal scopolamine patch weekly, Tylenol p.r.n. basis, Ultracet 37.5/325 one tablet q. 6 hours p.r.n., Xanax 2 mg daily four times a day p.r.n., Zanaflex 2 mg q.8 hours, Zofran p.r.n. basis, also getting Zyprexa 5 mg at bedtime. LABORATORY DATA: Reviewed and noted. No new lab is available since yesterday. IMPRESSION AND PLAN: Line related sepsis with Methicillin-resistant Staphylococcus aureus bacteremia, [id number] has been removed, has a midline of the left upper extremity, getting daptomycin, chronic obstructive lung disease, gastric bypass surgery, recurrent gastric ulcer, anxiety disorder, lupus, benzodiazepine dependent. Pulmonary point of view, doing okay. Continue nebulizer treatment p.r.n. basis. Keep head at 45 degrees. Antibiotics as per Infectious Disease, being followed by Psychiatry. Fall precautions. Sleep apnea precautions. Thank you and we will follow with you. Nicolle Pollack MD
--- NOTE | 2017-02-04 04:32 | PN ---
DATE: 02/03/2017 SUBJECTIVE: The patient is a 46-year-old female. The patient is seen and examined at the bedside on 02/03/2017. When I saw the patient in the morning, she was comfortable, got physical therapy. She had no fevers. No chills, but nurse called me 2 hours ago, the patient was having intractable vomiting. I made the patient n.p.o. Zofran was not working. Hospital physician gave and after that I heard she was feeling better. PHYSICAL EXAMINATION: VITAL SIGNS: Temperature 98.5, pulse 76, blood pressure 93/51 and respiratory rate 18. HEENT: Head is normocephalic, atraumatic. Eyes; PERRLA. Extraocular muscles are intact. Conjunctivae clear. Nose patent. Mucous membranes moist. NECK: Supple. No carotid bruits, JVD, or thyromegaly. CHEST: Bilaterally symmetrical. HEART: S1 and S2 positive. LUNGS: Clear to auscultation. ABDOMEN: Soft. Bowel sounds present. No organomegaly. EXTREMITIES: No edema. No cyanosis. NEUROLOGIC: The patient is awake and alert. Moving all four extremities. No focal deficits. LABORATORY DATA: White blood cell 7.6, hemoglobin 11.5. We do not have recent lab today, but I reviewed old labs. MEDICATIONS: Carafate, Catapres, CellCept, daptomycin, DuoNeb, insulin, Lasix, Lovenox, Lyrica, Neurontin, Pepcid, prednisone, and Protonix. ASSESSMENT AND PLAN: Ms. Josei Hurst is a 46 years old lady with history of multiple medical problems including lupus, renal insufficiency, has methicillin-resistant coagulase-negative Staphylococcus bacteremia, consider Port-A-Cath related infection. The patient has apparently coagulase-negative Staphylococcus bacteremia on two other separate occasions in the other hospital this year, status post port removal, postoperative day #4; chronic obstructive pulmonary disease exacerbation, clinical improving; past history of gastric bypass; Raynaud's phenomenon, spinal stenosis, history of deep vein thrombosis, status post IVC filter placement; chronic anemia, on intermittent iron transfusion therapy; gastroesophageal reflux disease, right-sided Port-A-Cath placement and now removed, now she has midline for IV antibiotics; nausea and vomiting, rule out gastroenteritis, made the patient NPO, Reglan and Zofran given, continue daptomycin day #4 of the - days of antibiotics after port removal. Repeat of the blood cultures are negative from the port and peripheral vein. A 2D echo does not show any vegetation and Doppler ultrasound of the right upper extremity vein does not show deep vein thrombosis. HIV test is negative. We will continue present treatment, monitoring the patient and if tomorrow no more nausea or vomiting, we will restart feeding as tolerated. Physical therapy. Emelina Jordan MD MTDD
[2017-02-04] MEDS: Enoxaparin 40 mg Syringe SC SCH (05:21)
[2017-02-04] MEDS: Sucralfate 1 gm/10 ml Oral Susp UD PO SCH ×4 (08:16→21:39)
[2017-02-04] MEDS: VIIBRYD 40 MG PO SCH (10:31)
[2017-02-04] MEDS: Oxycodone/Acetaminophen 5/325 mg Tab PO PRN (11:52)
[2017-02-04] MEDS: TraMADol/Apap 37.5/325 mg Tab PO PRN (16:37)
--- NOTE | 2017-02-04 18:25 | CP.PCM.PN ---
Subjective - Date & Time of Evaluation Date of Evaluation: 02/04/17 Time of Evaluation: 12:10 - Subjective Subjective: Comfortable, no fevers overnight. Objective - Vital Signs/Intake and Output Vital Signs (last 24 hours): Temp Pulse Resp BP Pulse Ox 98.7 F 94 H 20 166/89 H 99 02/04/17 06:00 02/04/17 06:00 02/04/17 06:00 02/04/17 06:00 02/04/17 06:00 - Medications Medications: Current Medications Acetaminophen (Tylenol 325mg Tab) 650 mg PO Q4H PRN; Protocol PRN Reason: Pain, Mild (1-3) Albuterol/Ipratropium (Duoneb 3 Mg/0.5 Mg (3 Ml) Ud) 3 ml IH Q3H PRN; Protocol PRN Reason: Shortness of Breath Last Admin: 02/02/17 21:51 Dose: 3 ml Alprazolam (Xanax) 2 mg PO QID PRN; Protocol PRN Reason: Anxiety, Agitation Last Admin: 02/04/17 02:57 Dose: 2 mg Clonidine HCl (Catapres Tts1 0.1 Mg/24 Hr) 1 patch TD MON [facility] PRN Reason: Protocol Enoxaparin Sodium (Lovenox) 40 mg SC 0600 [facility] PRN Reason: Protocol Last Admin: 02/04/17 05:21 Dose: 40 mg Famotidine (Pepcid) 20 mg PO AC [facility] PRN Reason: Protocol Last Admin: 02/04/17 08:16 Dose: Not Given Fluoxetine HCl (Prozac) 40 mg PO DAILY [facility] PRN Reason: Protocol Last Admin: 02/03/17 10:51 Dose: 40 mg Furosemide (Lasix) 40 mg PO BID [facility] PRN Reason: Protocol Last Admin: 02/03/17 17:15 Dose: Not Given Gabapentin (Neurontin) 300 mg PO TID [facility] PRN Reason: Protocol Last Admin: 02/03/17 17:18 Dose: 300 mg Home Med (Home Med) 1 unit PO QAM [facility] Last Admin: 02/03/17 10:50 Dose: 1 unit Daptomycin 730 mg/ Sodium (Chloride) 100 mls @ 200 mls/hr IV Q24H [facility] Stop: 02/15/17 11:01 Last Admin: 02/03/17 14:30 Dose: 200 mls/hr Mycophenolate Mofetil (Cellcept Cap) 500 mg PO BID [facility] Last Admin: 02/03/17 17:11 Dose: 500 mg Olanzapine (Zyprexa) 5 mg PO HS [facility] PRN Reason: Protocol Last Admin: 02/03/17 21:13 Dose: 5 mg Ondansetron HCl (Zofran Inj) 4 mg IVP Q4H PRN; Protocol PRN Reason: Nausea/Vomiting Last Admin: 02/04/17 00:00 Dose: 4 mg Ondansetron HCl (Zofran Odt) 4 mg SL Q6 PRN; Protocol PRN Reason: Nausea/Vomiting Prednisone (Prednisone Tab) 5 mg PO 0800 [facility] PRN Reason: Protocol Last Admin: 02/03/17 10:48 Dose: 5 mg Pregabalin (Lyrica) 200 mg PO TID [facility] Last Admin: 02/03/17 17:17 Dose: 200 mg Quetiapine Fumarate (Seroquel) 400 mg PO HS [facility] Last Admin: 02/03/17 21:12 Dose: 400 mg Scopolamine (Transderm-Scop) 1 patch TD Q72H [facility] PRN Reason: Protocol Last Admin: 02/01/17 21:21 Dose: 1 patch Sucralfate (Carafate Oral Susp) 1 gm PO ACHS [facility] PRN Reason: Protocol Last Admin: 02/04/17 08:16 Dose: Not Given Tizanidine HCl (Zanaflex) 2 mg PO 0600,1400,2200 [facility] PRN Reason: Protocol Last Admin: 02/04/17 05:21 Dose: 2 mg Tramadol/Acetaminophen (Ultracet 37.5/325 Mg) 1 tab PO Q6H PRN; Protocol PRN Reason: Pain, moderate (4-7) Last Admin: 02/02/17 21:40 Dose: 1 tab - Labs Labs: 02/01/17 07:10 02/01/17 07:10 - Constitutional Appears: Non-toxic - Head Exam Head Exam: NORMAL INSPECTION - Respiratory Exam Respiratory Exam: Decreased Breath Sounds - Cardiovascular Exam Cardiovascular Exam: +S1, +S2 - GI/Abdominal Exam GI & Abdominal Exam: Soft. absent: Tenderness Assessment and Plan - Assessment and Plan (Free Text) Plan: Assessment Methicillin-resistant Coagulase negative staph bacteremia consider port-a-cath related infection (patient has apparent coagulase neg staph bacteremia on 2 other separate occasions in other hospitals this year) S/P port removal POD #5 COPD exacerbation, clinically improving SLE COPD Raynaud's phenomenon chronic renal failure spinal stenosis history of DVT S/P IVC filter placement chronic anemia on intermittent iron transfusion therapy GERD S/P gastric bypass surgery S/P right port-a-cath placement morbid obesity with BMI 43 Plan continue Daptomycin day 5 of 10-14 days of antbiotics after port removal; repeat blood cx are negative from the port and a peripheral vein; 2D echo does not show vegetations; doppler U/S of right upper extremity veins does not show DVT HIV test is negative will continue to monitor clinically
--- NOTE | 2017-02-04 20:57 | PN ---
PLEASE CHECK BLANKS DATE: SUBJECTIVE: The patient is a 46-year-old female. The patient is seen and examined on the bedside, complaining about pain in her body especially with snowing outside and cold weather, her lupus is getting exacerbated. Last night, she had episodes of nausea and vomiting, was given Reglan, Zofran and was seen by the house physician also. Has mild cough, requiring nebulizer, getting clear liquid and I spoke to the nurse, if the patient will tolerate clear liquid, we will advance to full liquid and then advance soft diet as tolerated. Due to body pain that she was requesting pain medication. PHYSICAL EXAMINATION VITAL SIGNS: Temperature 99.4, pulse 82, blood pressure 95/69, respiratory rate 20, and oxygenation 99%. HEENT: Head is normocephalic and atraumatic. Eyes; PERRLA. Extraocular muscles are intact. Conjunctivae clear. Nose patent. Mucous membranes moist. NECK: Supple. No carotid bruits, JVD, or thyromegaly. CHEST: Bilaterally symmetrical. HEART: S1 and S2 positive. LUNGS: Clear to auscultation. ABDOMEN: Soft. Bowel sounds positive. No organomegaly. EXTREMITIES: No edema. No cyanosis. NEUROLOGIC: The patient is awake and alert. Moving all four extremities. No focal deficits. MEDICATIONS: Carafate, Catapres, CellCept, NS, DuoNeb, Lasix, Lovenox, Maalox, Neurontin, Pepcid, Percocet, prednisone, Prozac, and Seroquel. LABORATORY DATA: White blood cell Is 7.0, hemoglobin 11.5, hematocrit 37.4, and platelets 227. Sodium 141, potassium 3.4, and glucose 91. ASSESSMENT AND PLAN: Ms. Natali Galindo is a 46-year-old lady with anemia, hypokalemia, exacerbation of lupus, obesity, status post gastric bypass, line related sepsis with methicillin-resistant Staphylococcus aureus and bacteremia, Port-A-Cath has been removed, now she has a midline left upper extremity, getting daptomycin, recurrent gastric ulcer, anxiety disorder, benzodiazepine dependency. Continue present treatment. I started Percocet once a day. She was asking actually three times a day, but was informed only once a day and we will see the effect. Follow up with the Psychiatrist. Gastrointestinal and deep venous thrombosis prophylaxis. Length of time discussion done with the patient's nurse and the patient's aunt. We will follow up. Emelina Jordan MD
--- NOTE | 2017-02-05 02:41 | PN ---
DATE: 02/04/2017 PULMONARY PROGRESS NOTE REFERRING PHYSICIAN: Dr. Jordan. SUBJECTIVE: She is sitting at side of the bed. Does not feel well. Claims to have vomiting and nausea yesterday. No chest pain. No dysuria. No leg pain or leg swelling. She is n.p.o., but at present, hungry, wants to eat. OBJECTIVE: GENERAL: In no acute distress. VITAL SIGNS: Temperature 98, heart rate is 82, respiratory rate is 20, blood pressure 108/86, pulse oximetry is 99% on nasal cannula. HEENT: Moist mucous membrane. Crowded airway. Mallampati score is IV. NECK: Supple. No JVD. LUNGS: Has a fair airflow with rhonchi. HEART: S1, S2. ABDOMEN: Soft and nontender. No organomegaly. EXTREMITIES: No edema. NEUROLOGIC: Awake and alert. Follows simple commands. MEDICATIONS: She is on Carafate 1 g before meals and at bedtime, Catapres patch 0.1 mg weekly, CellCept 500 mg twice a day, daptomycin 730 mg q.24 hours, albuterol and Atrovent nebulizer q. 6 hours p.r.n. HOME MEDICATIONS: Daily Lasix 40 mg twice a day, Lovenox 40 mg daily, Lyrica 200 mg 3 times a day, Neurontin 300 mg 3 times a day, Pepcid 200 mg before meals, Percocet 5/325 mg one tab p.r.n., prednisone 5 mg daily, Prozac 40 mg daily, Seroquel 400 mg at bedtime, scopolamine patch q.72 hours., Tylenol p.r.n. basis, Ultracet 37.5/325 one tablet q.6 hours p.r.n., Xanax 2 mg q.i.d. p.r.n., Zanaflex 12 mg 3 times a day, Zofran p.r.n. basis, Zoloft 4 mg q.6 hours p.r.n., and Zyprexa 5 mg at bedtime. LABORATORY DATA: Reviewed and no new lab is available since yesterday. IMPRESSION AND PLAN: Line related sepsis with methicillin-resistant Staphylococcus aureus bacteremia, [id number] had been removed. She has a left upper extremity midline catheter, chronic obstructive lung disease, history of gastric bypass surgery, history of gastric ulcer, anxiety disorder, lupus, benzodiazepine and opiates dependent. I had a long discussion with the patient and , understand the benefits and risks. She is on Lyrica as well as gabapentin. We will discontinue the Lyrica. Continue gabapentin. Continue bronchodilator. Head up 45 degrees. Fall precautions. Gastric prophylaxis. Thank you and we will follow with you. Nicolle Pollack MD
[2017-02-05] MEDS: Enoxaparin 40 mg Syringe SC SCH (05:49)
[2017-02-05] MEDS: TraMADol/Apap 37.5/325 mg Tab PO PRN (05:51)
[2017-02-05] MEDS: Sucralfate 1 gm/10 ml Oral Susp UD PO SCH ×4 (08:25→21:03)
[2017-02-05] MEDS: VIIBRYD 40 MG PO SCH (10:37)
--- NOTE | 2017-02-05 17:05 | CP.PCM.PN ---
Subjective - Date & Time of Evaluation Date of Evaluation: 02/05/17 Time of Evaluation: 11:35 - Subjective Subjective: Comfortable, had episodes of body aches and some vomiting the night before but is feeling better now. No fevers overnight. Objective - Vital Signs/Intake and Output Vital Signs (last 24 hours): Temp Pulse Resp BP Pulse Ox 99.4 F 82 20 95/69 L 99 02/04/17 16:42 02/04/17 16:42 02/04/17 16:42 02/04/17 17:54 02/04/17 16:42 Intake and Output: 02/05/17 02/05/17 06:59 18:59 Intake Total 420 Balance 420 - Medications Medications: Current Medications Acetaminophen (Tylenol 325mg Tab) 650 mg PO Q4H PRN; Protocol PRN Reason: Pain, Mild (1-3) Last Admin: 02/04/17 12:51 Dose: 650 mg Al Hydrox/Mg Hydrox/Simethicone (Maalox Plus 30 Ml) 30 ml PO Q4 PRN PRN Reason: GI distress Albuterol/Ipratropium (Duoneb 3 Mg/0.5 Mg (3 Ml) Ud) 3 ml IH Q3H PRN; Protocol PRN Reason: Shortness of Breath Last Admin: 02/02/17 21:51 Dose: 3 ml Alprazolam (Xanax) 2 mg PO QID PRN; Protocol PRN Reason: Anxiety, Agitation Last Admin: 02/04/17 22:50 Dose: 2 mg Clonidine HCl (Catapres Tts1 0.1 Mg/24 Hr) 1 patch TD MON [facility] PRN Reason: Protocol Enoxaparin Sodium (Lovenox) 40 mg SC 0600 [facility] PRN Reason: Protocol Last Admin: 02/05/17 05:49 Dose: 40 mg Famotidine (Pepcid) 20 mg PO AC [facility] PRN Reason: Protocol Last Admin: 02/05/17 08:26 Dose: 20 mg Fluoxetine HCl (Prozac) 40 mg PO DAILY [facility] PRN Reason: Protocol Last Admin: 02/04/17 10:33 Dose: 40 mg Furosemide (Lasix) 40 mg PO BID [facility] PRN Reason: Protocol Last Admin: 02/04/17 17:54 Dose: Not Given Gabapentin (Neurontin) 300 mg PO TID [facility] PRN Reason: Protocol Last Admin: 02/04/17 17:53 Dose: 300 mg Home Med (Home Med) 1 unit PO QAM [facility] Last Admin: 02/04/17 10:31 Dose: 1 unit Daptomycin 730 mg/ Sodium (Chloride) 100 mls @ 200 mls/hr IV Q24H [facility] Stop: 02/15/17 11:01 Last Admin: 02/04/17 10:39 Dose: 200 mls/hr Metoclopramide HCl (Reglan) 10 mg PO 0600,1130,1630,2200 [facility] Last Admin: 02/05/17 05:49 Dose: 10 mg Mycophenolate Mofetil (Cellcept Cap) 500 mg PO BID [facility] Last Admin: 02/04/17 17:53 Dose: 500 mg Olanzapine (Zyprexa) 5 mg PO HS [facility] PRN Reason: Protocol Last Admin: 02/04/17 21:40 Dose: 5 mg Ondansetron HCl (Zofran Inj) 4 mg IVP Q4H PRN; Protocol PRN Reason: Nausea/Vomiting Last Admin: 02/04/17 00:00 Dose: 4 mg Ondansetron HCl (Zofran Odt) 4 mg SL Q6 PRN; Protocol PRN Reason: Nausea/Vomiting Oxycodone/Acetaminophen (Percocet 5/325 Mg Tab) 1 tab PO DAILY PRN PRN Reason: Pain, moderate (4-7) Stop: 02/08/17 10:01 Last Admin: 02/04/17 11:52 Dose: 1 tab Prednisone (Prednisone Tab) 5 mg PO 0800 [facility] PRN Reason: Protocol Last Admin: 02/05/17 08:27 Dose: 5 mg Quetiapine Fumarate (Seroquel) 400 mg PO [facility] Last Admin: 02/04/17 21:41 Dose: 400 mg Scopolamine (Transderm-Scop) 1 patch TD Q72H [facility] PRN Reason: Protocol Last Admin: 02/04/17 21:39 Dose: 1 patch Sucralfate (Carafate Oral Susp) 1 gm PO ACHS [facility] PRN Reason: Protocol Last Admin: 02/05/17 08:25 Dose: 1 gm Tizanidine HCl (Zanaflex) 2 mg PO 0600,1400,2200 [facility] PRN Reason: Protocol Last Admin: 02/05/17 05:49 Dose: 2 mg Tramadol/Acetaminophen (Ultracet 37.5/325 Mg) 1 tab PO Q6H PRN; Protocol PRN Reason: Pain, moderate (4-7) Last Admin: 02/05/17 05:51 Dose: 1 tab - Labs Labs: 02/01/17 07:10 02/01/17 07:10 - Constitutional Appears: Non-toxic - Head Exam Head Exam: NORMAL INSPECTION - ENT Exam ENT Exam: Mucous Membranes Moist - Neck Exam Neck Exam: absent: Meningismus - Respiratory Exam Respiratory Exam: Decreased Breath Sounds - Cardiovascular Exam Cardiovascular Exam: +S1, +S2 - GI/Abdominal Exam GI & Abdominal Exam: Soft. absent: Tenderness Assessment and Plan - Assessment and Plan (Free Text) Plan: Assessment Methicillin-resistant Coagulase negative staph bacteremia consider port-a-cath related infection (patient has apparent coagulase neg staph bacteremia on 2 other separate occasions in other hospitals this year) S/P port removal POD #6 COPD exacerbation, clinically improving SLE COPD Raynaud's phenomenon chronic renal failure spinal stenosis history of DVT S/P IVC filter placement chronic anemia on intermittent iron transfusion therapy GERD S/P gastric bypass surgery S/P right port-a-cath placement morbid obesity with BMI 43 Plan continue Daptomycin day 6 of 10-14 days of Daptomycin; repeat blood cx are negative from the port and a peripheral vein; 2D echo does not show vegetations ; doppler U/S of right upper extremity veins does not show DVT will re-check CPK levels since she had body aches HIV test is negative will continue to follow clinically
--- NOTE | 2017-02-06 01:39 | PN ---
DATE: SUBJECTIVE: The patient is a 46-year-old female. The patient was seen and examined at the bedside, looking comfortable. No nausea, vomiting, or diarrhea. No hematemesis or hematochezia. No swelling of the legs. No chest pain. No palpitation. Has chronic pains in the body due to lupus, but is improving. Tolerating food very well. PHYSICAL EXAMINATION VITAL SIGNS: Temperature 98.7, pulse 59, blood pressure 120/68, and respiratory rate 18. HEENT: Head is normocephalic and atraumatic. Eyes; PERRLA. Extraocular muscles are intact. Conjunctivae clear. Nose patent. Mucous membranes moist. NECK: Supple. No carotid bruits, JVD, or thyromegaly. CHEST: Bilaterally symmetrical. HEART: S1 and S2 positive. LUNGS: Clear to auscultation. ABDOMEN: Soft. Bowel sounds positive. No organomegaly. EXTREMITIES: No edema. No cyanosis. NEUROLOGIC: The patient is awake and alert. Moving all four extremities. No focal deficits. MEDICATIONS: Carafate, Catapres, CellCept, daptomycin, Lovenox, Maalox, Neurontin, Pepcid, prednisone, Seroquel, scopolamine, Tylenol, Tramadol, Xanax, Zanaflex, and Zyprexa. LABORATORY DATA: We do not have recent lab today, but I reviewed old labs. ASSESSMENT AND PLAN: Ms. Josie Hurst is a 46-year-old female has line related sepsis with methicillin-resistant Staphylococcus aureus and bacteremia, Port-A-Cath has been removed. She has a left upper extremity midline for antibiotics, chronic obstructive lung disease, history of gastric bypass surgery, history of gastric ulcer, anxiety, lupus, benzodiazepine and opiates dependency. The patient was on Lyrica and gabapentin. Dr. Pollack discontinued the Lyrica. Continue bronchodilators, prednisone, physical therapy, and antibiotics. We will follow up. Emelina Jordan MD
[2017-02-06] MEDS: TraMADol/Apap 37.5/325 mg Tab PO PRN ×2 (04:32→14:38)
[2017-02-06] MEDS: Enoxaparin 40 mg Syringe SC SCH (06:28)
[2017-02-06] MEDS: Sucralfate 1 gm/10 ml Oral Susp UD PO SCH ×4 (08:39→21:36)
--- NOTE | 2017-02-06 09:17 | PN ---
PULMONARY PROGRESS NOTE DATE: 02/05/2017 REFERRING PHYSICIAN: Dr. Jordan. SUBJECTIVE: She is lying in the bed. Feels much better. Yesterday with nausea, vomiting and abdominal pain; this morning, she feels better. Not much cough. No sputum production. No hemoptysis. No leg pain or leg swelling. OBJECTIVE: GENERAL: In no acute distress. VITAL SIGNS: Temperature 98, heart rate is 89, respiratory rate is 18, blood pressure 123/68, pulse oximetry is 99% on room air. HEENT: Moist mucous membrane. Crowded airway. NECK: Supple. No JVD. LUNGS: Have a fair airflow with rhonchi. HEART: S1 and S2. ABDOMEN: Soft and nontender. No organomegaly. EXTREMITIES: No edema. NEUROLOGIC: Awake and alert. Follows simple commands. MEDICATIONS: She is on Carafate 1 g a.c. and h.s.; Catapres patch 0.1 mg weekly; CellCept 500 mg twice a day; daptomycin mg daily; DuoNeb q. 6 hours; Lasix 40 mg twice a day; Lovenox 40 mg daily; gabapentin 300 mg 3 times a day; Pepcid 20 mg daily; ; prednisone 5 mg daily; Prozac 40 mg daily; Reglan 10 mg q.i.d.; Seroquel 400 mg at bedtime; scopolamine patch q. 72 hours.; Tylenol p.r.n.; ; Xanax 2 mg q.i.d. p.r.n.; Zanaflex 2 mg q. 8 hours; Zofran p.r.n.; Zyprexa 5 mg at bedtime. LABORATORY DATA: Reviewed. No new lab is available since yesterday. IMPRESSION AND PLAN: Line related sepsis with bacteremia, on antibiotics; chronic obstructive lung disease; history of gastric bypass surgery; history of gastric ulcer; anxiety disorder; lupus; benzodiazepine and opiates dependent. Pulmonary point of view, she is doing okay. Requesting Gastrointestinal consult from Dr. Nicholas. Pulmonary point of view, continue bronchodilator. Keep head at 45 degrees. Sleep apnea precaution. Continue antibiotics as per Infectious Diseases. Gastric and deep venous thrombosis prophylaxis. Thank you and we will follow with you. Nicolle Pollack MD [facility] # [id number]
[2017-02-06] MEDS: VIIBRYD 40 MG PO SCH (11:00)
--- NOTE | 2017-02-06 12:16 | CP.PCM.PN ---
Subjective - Date & Time of Evaluation Date of Evaluation: 02/06/17 Time of Evaluation: 10:55 - Subjective Subjective: No more nausea, no diarrhea, no abdominal pain, no fevers overnight. Objective - Vital Signs/Intake and Output Vital Signs (last 24 hours): Temp Pulse Resp BP Pulse Ox 97.7 F 77 18 98/54 L 100 02/06/17 06:00 02/06/17 06:00 02/06/17 06:00 02/06/17 06:00 02/06/17 06:00 Intake and Output: 02/06/17 02/06/17 06:59 18:59 Intake Total 580 Balance 580 - Medications Medications: Current Medications Acetaminophen (Tylenol 325mg Tab) 650 mg PO Q4H PRN; Protocol PRN Reason: Pain, Mild (1-3) Last Admin: 02/04/17 12:51 Dose: 650 mg Al Hydrox/Mg Hydrox/Simethicone (Maalox Plus 30 Ml) 30 ml PO Q4 PRN PRN Reason: GI distress Albuterol/Ipratropium (Duoneb 3 Mg/0.5 Mg (3 Ml) Ud) 3 ml IH Q3H PRN; Protocol PRN Reason: Shortness of Breath Last Admin: 02/02/17 21:51 Dose: 3 ml Alprazolam (Xanax) 2 mg PO QID PRN; Protocol PRN Reason: Anxiety, Agitation Last Admin: 02/06/17 03:45 Dose: 2 mg Clonidine HCl (Catapres Tts1 0.1 Mg/24 Hr) 1 patch TD MON [facility] PRN Reason: Protocol Enoxaparin Sodium (Lovenox) 40 mg SC 0600 [facility] PRN Reason: Protocol Last Admin: 02/06/17 06:28 Dose: 40 mg Famotidine (Pepcid) 20 mg PO AC [facility] PRN Reason: Protocol Last Admin: 02/06/17 08:39 Dose: 20 mg Fluoxetine HCl (Prozac) 40 mg PO DAILY [facility] PRN Reason: Protocol Last Admin: 02/05/17 14:31 Dose: 40 mg Furosemide (Lasix) 40 mg PO BID [facility] PRN Reason: Protocol Last Admin: 02/05/17 18:18 Dose: 40 mg Gabapentin (Neurontin) 300 mg PO TID [facility] PRN Reason: Protocol Last Admin: 02/05/17 18:19 Dose: 300 mg Home Med (Home Med) 1 unit PO QAM [facility] Daptomycin 730 mg/ Sodium (Chloride) 100 mls @ 200 mls/hr IV Q24H [facility] Stop: 02/15/17 11:01 Last Admin: 02/05/17 12:01 Dose: 200 mls/hr Metoclopramide HCl (Reglan) 10 mg PO 0600,1130,1630,2200 [facility] Last Admin: 02/06/17 06:28 Dose: 10 mg Mycophenolate Mofetil (Cellcept Cap) 500 mg PO BID [facility] Last Admin: 02/05/17 18:17 Dose: 500 mg Olanzapine (Zyprexa) 5 mg PO HS [facility] PRN Reason: Protocol Last Admin: 02/05/17 21:03 Dose: 5 mg Ondansetron HCl (Zofran Inj) 4 mg IVP Q4H PRN; Protocol PRN Reason: Nausea/Vomiting Last Admin: 02/04/17 00:00 Dose: 4 mg Ondansetron HCl (Zofran Odt) 4 mg SL Q6 PRN; Protocol PRN Reason: Nausea/Vomiting Oxycodone/Acetaminophen (Percocet 5/325 Mg Tab) 1 tab PO DAILY PRN PRN Reason: Pain, moderate (4-7) Stop: 02/08/17 10:01 Last Admin: 02/04/17 11:52 Dose: 1 tab Prednisone (Prednisone Tab) 5 mg PO 0800 [facility] PRN Reason: Protocol Last Admin: 02/06/17 08:39 Dose: 5 mg Quetiapine Fumarate (Seroquel) 400 mg PO HS [facility] Last Admin: 02/05/17 21:02 Dose: 400 mg Scopolamine (Transderm-Scop) 1 patch TD Q72H [facility] PRN Reason: Protocol Last Admin: 02/04/17 21:39 Dose: 1 patch Sucralfate (Carafate Oral Susp) 1 gm PO ACHS [facility] PRN Reason: Protocol Last Admin: 02/06/17 08:39 Dose: 1 gm Tizanidine HCl (Zanaflex) 2 mg PO 0600,1400,2200 [facility] PRN Reason: Protocol Last Admin: 02/06/17 06:28 Dose: 2 mg Tramadol/Acetaminophen (Ultracet 37.5/325 Mg) 1 tab PO Q6H PRN; Protocol PRN Reason: Pain, moderate (4-7) Last Admin: 02/06/17 04:32 Dose: 1 tab - Labs Labs: 02/01/17 07:10 02/01/17 07:10 - Constitutional Appears: Non-toxic - Head Exam Head Exam: NORMAL INSPECTION - ENT Exam ENT Exam: Mucous Membranes Moist - Neck Exam Neck Exam: absent: Meningismus - Respiratory Exam Respiratory Exam: Decreased Breath Sounds - Cardiovascular Exam Cardiovascular Exam: +S1, +S2 - GI/Abdominal Exam GI & Abdominal Exam: Soft. absent: Tenderness Assessment and Plan - Assessment and Plan (Free Text) Plan: Assessment Methicillin-resistant Coagulase negative staph bacteremia consider port-a-cath related infection (patient has apparent coagulase neg staph bacteremia on 2 other separate occasions in other hospitals this year) S/P port removal POD #7 COPD exacerbation, clinically improving SLE COPD Raynaud's phenomenon chronic renal failure spinal stenosis history of DVT S/P IVC filter placement chronic anemia on intermittent iron transfusion therapy GERD S/P gastric bypass surgery S/P right port-a-cath placement morbid obesity with BMI 43 Plan continue Daptomycin day 7 of 10-14 days of Daptomycin; repeat blood cx are negative from the port and a peripheral vein; 2D echo does not show vegetations ; doppler U/S of right upper extremity veins does not show DVT CPK levels from yesterday are normal HIV test is negative will continue to follow clinically
[2017-02-06] MEDS: Oxycodone/Acetaminophen 5/325 mg Tab PO PRN (17:32)
--- NOTE | 2017-02-06 23:32 | PN ---
DATE: SUBJECTIVE: The patient is a 46-year-old female. The patient was seen and examined at the bedside, looking comfortable. No nausea, vomiting, or diarrhea. Complaining about a little bit body aches. No headache. No dizziness. No chest pain. No palpitation. No fever. No chills. PHYSICAL EXAMINATION: VITAL SIGNS: Temperature 97.7, pulse 77, blood pressure 150/91, and respiratory rate 18. HEENT: Head is normocephalic and atraumatic. Eyes; PERRLA. Extraocular muscles are intact. Conjunctivae clear. Nose patent. Mucous membranes moist. NECK: Supple. No carotid bruits, JVD, or thyromegaly. CHEST: Bilaterally symmetrical. HEART: S1 and S2 positive. LUNGS: Clear to auscultation. ABDOMEN: Soft. Bowel sounds positive. No organomegaly. EXTREMITIES: No edema. No cyanosis. NEUROLOGIC: The patient is awake and alert. Moving all four extremities. No focal deficits. MEDICATIONS: Carafate, clonidine, CellCept, daptomycin, Lasix, enoxaparin, famotidine, oxycodone, metoclopramide, and Tramadol. LABORATORY DATA: We do not have recent lab today, but I reviewed old labs. glucose 91. ASSESSMENT AND PLAN: Ms. Josie Hurst is a 46-year-old lady with multiple medical problems; line-related sepsis with bacteremia, on antibiotics; obesity; history of gastric bypass; chronic obstructive lung disease; history of gastric ulcers; anxiety; lupus; benzodiazepine and opiate dependency. Port-A-Cath is removed, midline is put on the left upper extremity, getting antibiotics via midline. GI consult called. Continue bronchodilators. Continue antibiotics as per Infectious Disease. Dr. Ruddy Soliz, but as per TCU staff, Dr. Ruddy Soliz said replacement of Port-A-Cath will be within 4 to 6 weeks. Educated the patient. Physical therapy. We will follow up. Emelina Jordan MD [facility]TDD
--- NOTE | 2017-02-07 02:37 | PN ---
DATE: 02/06/2017 PULMONARY PROGRESS NOTE REFERRING PHYSICIAN: Emelina Jordan MD SUBJECTIVE: The patient is sitting on the bed. Night was unremarkable. Complaining getting short of breath with minimal exertion. No chest pain. No nausea. No vomiting. No diarrhea. No leg pain or leg swelling. OBJECTIVE: GENERAL: In no acute distress. VITAL SIGNS: Temperature is 98, heart rate is 69, respiratory rate is 16, blood pressure is 150/89, and pulse oximetry is 98% on room air. HEENT: Moist mucous membrane. Crowded airway. Mallampati score is IV. NECK: Supple. No JVD. LUNGS: Has a fair airflow with few rhonchi. HEART: S1 and S2. ABDOMEN: Soft and nontender. No organomegaly. EXTREMITIES: No edema. NEUROLOGIC: Awake and alert. Follows simple commands. MEDICATIONS: She is on Carafate 1 g a.c. and at bedtime, Catapres 0.1 mg weekly, CellCept 500 mg twice a day, daptomycin mg daily, albuterol and Atrovent nebulizer q.3 hours p.r.n., Lasix 20 mg twice a day, Lovenox 40 mg subcutaneously daily, Neurontin 300 mg 3 times a day, Pepcid 20 mg a.c., Percocet 5/325 one tablet daily p.r.n., prednisone 5 mg daily, Prozac 50 mg daily, Seroquel 400 mg at bedtime, scopolamine patch to affected area daily, Reglan 10 mg 4 times a day, Tylenol p.r.n., Ultracet 37.5/325 one tablet q.6 hours p.r.n., Xanax 2 mg 4 times a day p.r.n., Zanaflex 2 mg 3 times a day, Zofran p.r.n. basis, and Zyprexa 5 mg at bedtime. LABORATORY DATA: Reviewed. No new lab is available since yesterday. IMPRESSION AND PLAN: Central line-related sepsis, bacteremia, Port-A-Cath had been removed. Obstructive lung disease, gastric bypass surgery in the remote past, gastric ulcer, anxiety disorder, lupus, benzodiazepine and opiate dependent. Pulmonary point of view, doing okay. Continue antibiotics, keep head at 45 degrees, and bronchodilator. Continue therapy. Gastric and deep venous thrombosis prophylaxis. Thank you, and we will follow with you. Nicolle Pollack MD
[2017-02-07] MEDS: Enoxaparin 40 mg Syringe SC SCH (05:08)
[2017-02-07] MEDS: Oxycodone/Acetaminophen 5/325 mg Tab PO PRN (07:44)
[2017-02-07] MEDS: Sucralfate 1 gm/10 ml Oral Susp UD PO SCH ×4 (08:07→21:25)
[2017-02-07] MEDS: VIIBRYD 40 MG PO SCH (10:21)
[2017-02-07] MEDS ORDERED: DAPTOmycin 500 mg Inj (Cubicin) IV SCH (13:45)
--- NOTE | 2017-02-07 14:33 | CP.PCM.PN ---
<Luann Michaud - Last Filed: 02/07/17 21:54> Subjective - Date & Time of Evaluation Date of Evaluation: 02/07/17 Time of Evaluation: 09:45 - Subjective Subjective: 46 yr female w/ history of COPD, gastric bypass, recurrent gastric ulcers, GERD, Lupus, Raynauds, chronic renal failure, spinal stenosis, morbid obesity, anxiety, depression, psychosis, DVT, w/ IVC filter, benzodiazpine dependent, recurrent staph infection s/p port-a-cath removal. Patient in physical therapy, exercising on bike. She appears concerned about discharge planning and states that before she leaves she wants another Por-a- cath placed. She states that she really needs oxygen use at home because she needs it to sleep better or else she becomes short of breath. Denies chest pain , diarrhea, constipation or urinary frequency. No distress noted. Objective - Vital Signs/Intake and Output Vital Signs (last 24 hours): Temp Pulse Resp BP Pulse Ox 97.5 F L 84 18 128/84 99 02/07/17 10:00 02/07/17 13:13 02/07/17 10:00 02/07/17 10:21 02/07/17 13:13 - Medications Medications: Current Medications Acetaminophen (Tylenol 325mg Tab) 650 mg PO Q4H PRN; Protocol PRN Reason: Pain, Mild (1-3) Last Admin: 02/04/17 12:51 Dose: 650 mg Al Hydrox/Mg Hydrox/Simethicone (Maalox Plus 30 Ml) 30 ml PO Q4 PRN PRN Reason: GI distress Albuterol/Ipratropium (Duoneb 3 Mg/0.5 Mg (3 Ml) Ud) 3 ml IH Q3H PRN; Protocol PRN Reason: Shortness of Breath Last Admin: 02/02/17 21:51 Dose: 3 ml Alprazolam (Xanax) 2 mg PO QID PRN; Protocol PRN Reason: Anxiety, Agitation Last Admin: 02/07/17 03:05 Dose: 2 mg Clonidine HCl (Catapres Tts1 0.1 Mg/24 Hr) 1 patch TD MON [facility] PRN Reason: Protocol Last Admin: 02/06/17 10:59 Dose: 1 patch Enoxaparin Sodium (Lovenox) 40 mg SC 0600 [facility] PRN Reason: Protocol Last Admin: 02/07/17 05:08 Dose: 40 mg Famotidine (Pepcid) 20 mg PO AC [facility] PRN Reason: Protocol Last Admin: 02/07/17 12:15 Dose: 20 mg Fluoxetine HCl (Prozac) 40 mg PO DAILY [facility] PRN Reason: Protocol Last Admin: 02/07/17 10:20 Dose: 40 mg Furosemide (Lasix) 40 mg PO BID [facility] PRN Reason: Protocol Last Admin: 02/07/17 10:21 Dose: 40 mg Gabapentin (Neurontin) 300 mg PO TID [facility] PRN Reason: Protocol Last Admin: 02/07/17 10:21 Dose: 300 mg Home Med (Home Med) 1 unit PO QAM [facility] Last Admin: 02/07/17 10:21 Dose: 1 unit Daptomycin 730 mg/ Sodium (Chloride) 100 mls @ 200 mls/hr IV Q24H [facility] Stop: 02/17/17 13:46 Last Admin: 02/07/17 14:00 Dose: Not Given Metoclopramide HCl (Reglan) 10 mg PO 0600,1130,1630,2200 [facility] Last Admin: 02/07/17 12:16 Dose: 10 mg Mycophenolate Mofetil (Cellcept Cap) 500 mg PO BID [facility] Last Admin: 02/07/17 10:20 Dose: 500 mg Olanzapine (Zyprexa) 5 mg PO HS [facility] PRN Reason: Protocol Last Admin: 02/06/17 21:40 Dose: 5 mg Ondansetron HCl (Zofran Inj) 4 mg IVP Q4H PRN; Protocol PRN Reason: Nausea/Vomiting Last Admin: 02/07/17 04:07 Dose: 4 mg Ondansetron HCl (Zofran Odt) 4 mg SL Q6 PRN; Protocol PRN Reason: Nausea/Vomiting Oxycodone/Acetaminophen (Percocet 5/325 Mg Tab) 1 tab PO DAILY PRN PRN Reason: Pain, moderate (4-7) Stop: 02/08/17 10:01 Last Admin: 02/07/17 07:44 Dose: 1 tab Prednisone (Prednisone Tab) 5 mg PO 0800 [facility] PRN Reason: Protocol Last Admin: 02/07/17 08:08 Dose: 5 mg Quetiapine Fumarate (Seroquel) 400 mg PO HS [facility] Last Admin: 02/06/17 21:36 Dose: 400 mg Scopolamine (Transderm-Scop) 1 patch TD Q72H [facility] PRN Reason: Protocol Last Admin: 02/04/17 21:39 Dose: 1 patch Sucralfate (Carafate Oral Susp) 1 gm PO ACHS [facility] PRN Reason: Protocol Last Admin: 02/07/17 12:15 Dose: 1 gm Tizanidine HCl (Zanaflex) 2 mg PO 0600,1400,2200 [facility] PRN Reason: Protocol Last Admin: 02/07/17 05:07 Dose: 2 mg Tramadol/Acetaminophen (Ultracet 37.5/325 Mg) 1 tab PO Q6H PRN; Protocol PRN Reason: Pain, moderate (4-7) Last Admin: 02/06/17 14:38 Dose: 1 tab - Labs Labs: 02/01/17 07:10 02/01/17 07:10 - Constitutional Appears: Well - Head Exam Head Exam: ATRAUMATIC, NORMAL INSPECTION, NORMOCEPHALIC - Eye Exam Eye Exam: EOMI, Normal appearance, PERRL Pupil Exam: NORMAL ACCOMODATION, PERRL - ENT Exam ENT Exam: Mucous Membranes Moist, Normal Exam - Neck Exam Neck Exam: Full ROM, Normal Inspection. absent: Lymphadenopathy - Respiratory Exam Respiratory Exam: Clear to Ausculation Bilateral, NORMAL BREATHING PATTERN - Cardiovascular Exam Cardiovascular Exam: REGULAR RHYTHM, +S1, +S2. absent: Murmur - GI/Abdominal Exam GI & Abdominal Exam: Soft, Normal Bowel Sounds. absent: Tenderness - Extremities Exam Extremities Exam: Full ROM, Normal Capillary Refill, Normal Inspection. absent : Joint Swelling, Pedal Edema - Back Exam Back Exam: NORMAL INSPECTION - Neurological Exam Neurological Exam: Alert, Awake, CN II-XII Intact, Normal Gait, Oriented x3 - Psychiatric Exam Psychiatric exam: Normal Affect, Normal Mood - Skin Skin Exam: Dry, Intact, Normal Color, Warm Assessment and Plan (1) Bloodstream infection due to port-a-cath Status: Acute (2) COPD (chronic obstructive pulmonary disease) Status: Chronic (3) Presence of IVC filter Status: Chronic (4) Pulmonary hypertension Status: Suspected (5) Lupus Status: Chronic (6) Chronic pain Status: Chronic - Assessment and Plan (Free Text) Plan: Continue PT and ABX day 8/10-14. Consults: ID = Dr. Masterson = Methicillin-resistant, coagulase-negative staphylococcus bacteremia tx w/ daptomycin day 8 of 12-10. pt cleared for new port-a-cath placement. Pulmo = Dr. Pollack = continue abx & bronchodilator Reviewed: ECG = (-) ST CXR = (-)WNL ECHO = (+) EF WNL%, mild concentric LVH, mil pulmonary HTN R upper extremity US = (-) NEG DVT <Emelina Jordan - Last Filed: 02/07/17 22:34> Objective - Vital Signs/Intake and Output Vital Signs (last 24 hours): Temp Pulse Resp BP Pulse Ox 97.5 F L 84 18 158/80 H 99 02/07/17 10:00 02/07/17 13:13 02/07/17 10:00 02/07/17 17:17 02/07/17 13:13 - Medications Medications: Current Medications Acetaminophen (Tylenol 325mg Tab) 650 mg PO Q4H PRN; Protocol PRN Reason: Pain, Mild (1-3) Last Admin: 02/04/17 12:51 Dose: 650 mg Al Hydrox/Mg Hydrox/Simethicone (Maalox Plus 30 Ml) 30 ml PO Q4 PRN PRN Reason: GI distress Albuterol/Ipratropium (Duoneb 3 Mg/0.5 Mg (3 Ml) Ud) 3 ml IH Q3H PRN; Protocol PRN Reason: Shortness of Breath Last Admin: 02/02/17 21:51 Dose: 3 ml Alprazolam (Xanax) 2 mg PO QID PRN; Protocol PRN Reason: Anxiety, Agitation Last Admin: 02/07/17 15:51 Dose: 2 mg Clonidine HCl (Catapres Tts1 0.1 Mg/24 Hr) 1 patch TD MON [facility] PRN Reason: Protocol Last Admin: 02/06/17 10:59 Dose: 1 patch Enoxaparin Sodium (Lovenox) 40 mg SC 0600 [facility] PRN Reason: Protocol Last Admin: 02/07/17 05:08 Dose: 40 mg Famotidine (Pepcid) 20 mg PO AC [facility] PRN Reason: Protocol Last Admin: 02/07/17 17:17 Dose: 20 mg Fluoxetine HCl (Prozac) 40 mg PO DAILY [facility] PRN Reason: Protocol Last Admin: 02/07/17 10:20 Dose: 40 mg Furosemide (Lasix) 40 mg PO BID [facility] PRN Reason: Protocol Last Admin: 02/07/17 17:17 Dose: 40 mg Gabapentin (Neurontin) 300 mg PO TID [facility] PRN Reason: Protocol Last Admin: 02/07/17 17:18 Dose: 300 mg Home Med (Home Med) 1 unit PO QAM [facility] Last Admin: 02/07/17 10:21 Dose: 1 unit Daptomycin 730 mg/ Sodium (Chloride) 100 mls @ 200 mls/hr IV Q24H [facility] Stop: 02/17/17 13:46 Last Admin: 02/07/17 14:00 Dose: Not Given Metoclopramide HCl (Reglan) 5 mg PO 0600,1130,1630,2200 [facility] Mycophenolate Mofetil (Cellcept Cap) 500 mg PO BID [facility] Last Admin: 02/07/17 17:16 Dose: 500 mg Olanzapine (Zyprexa) 5 mg PO HS [facility] PRN Reason: Protocol Last Admin: 02/06/17 21:40 Dose: 5 mg Ondansetron HCl (Zofran Inj) 4 mg IVP Q4H PRN; Protocol PRN Reason: Nausea/Vomiting Last Admin: 02/07/17 04:07 Dose: 4 mg Ondansetron HCl (Zofran Odt) 4 mg SL Q6 PRN; Protocol PRN Reason: Nausea/Vomiting Oxycodone/Acetaminophen (Percocet 5/325 Mg Tab) 1 tab PO DAILY PRN PRN Reason: Pain, moderate (4-7) Stop: 02/08/17 10:01 Last Admin: 02/07/17 07:44 Dose: 1 tab Prednisone (Prednisone Tab) 5 mg PO 0800 [facility] PRN Reason: Protocol Last Admin: 02/07/17 08:08 Dose: 5 mg Quetiapine Fumarate (Seroquel) 400 mg PO HS [facility] Last Admin: 02/06/17 21:36 Dose: 400 mg Scopolamine (Transderm-Scop) 1 patch TD Q72H [facility] PRN Reason: Protocol Last Admin: 02/04/17 21:39 Dose: 1 patch Sucralfate (Carafate Oral Susp) 1 gm PO ACHS [facility] PRN Reason: Protocol Last Admin: 02/07/17 17:16 Dose: 1 gm Tizanidine HCl (Zanaflex) 2 mg PO 0600,1400,2200 [facility] PRN Reason: Protocol Last Admin: 02/07/17 15:19 Dose: 2 mg Tramadol/Acetaminophen (Ultracet 37.5/325 Mg) 1 tab PO Q6H PRN; Protocol PRN Reason: Pain, moderate (4-7) Last Admin: 02/06/17 14:38 Dose: 1 tab - Labs Labs: 02/01/17 07:10 02/01/17 07:10 Assessment and Plan - Assessment and Plan (Free Text) Plan: pt is seen and examined at bed side , looking comfortable, no n.v.d , alanis .chest pain or sob , getting anb . for port infection , asper id . pt had h/o lupus , as per dr makenzie weston pt will get next port after at least 4 ws . agreed above , d/d with pharmacy technician inpatient , cont, same treatment , will f/u
--- NOTE | 2017-02-07 18:51 | PN ---
DATE: 02/07/2017 SUBJECTIVE: The patient is in bed, in no acute distress, nontoxic. PHYSICAL EXAMINATION: VITAL SIGNS: Temperature is 97, blood pressure is 120/80, respiratory rate of 18. HEENT: Unremarkable. NECK: Supple. LUNGS: Decreased breath sounds. HEART: Normal S1 and S2. ABDOMEN: Soft, nontender. LABORATORY EXAMINATION: Reveals the patient's white count of 7 and hemoglobin of 11. BUN of 20, creatinine of 1.3. Chemistries are noted and microbiology is reviewed. ASSESSMENT AND PLAN: A 46-year-old female who was seen early this morning in room 317, who was awake and alert. The patient with methicillin-resistant, coagulase-negative Staphylococcus bacteremia from a Port-A-Cath, which was taken out in a the patient with lupus, chronic obstructive lung disease, Raynaud's, chronic renal failure, spinal stenosis. Currently on daptomycin day number 8, would complete at least 10 to 14 days of daptomycin. The patient requesting regarding new Port-A-Cath placement from an Infectious Disease point of view. Reveals the patient's blood cultures has been negative since the 01/25/2017. The patient's catheter tip was no growth. If the patient is to receive a Port-A-Cath, it is clear from Infectious Disease point of view for new Port-A-Cath placement. Review of orders, reveals the daptomycin once again it has been discontinue by pharmacy. We will restart the daptomycin. We will reorder it. We will follow with you. Louis Masterson MD
[2017-02-08] MEDS: TraMADol/Apap 37.5/325 mg Tab PO PRN ×2 (00:33→18:32)
--- NOTE | 2017-02-08 03:00 | PN ---
PULMONARY PROGRESS NOTE DATE: 02/07/2017 REFERRING PHYSICIAN: Dr. Jordan. SUBJECTIVE: She is sitting up in the bed. Night was unremarkable. Still gets short of breath with exertion, especially with the stairs. No headache. No rhinitis. No nausea. No vomiting, diarrhea. No leg pain or leg swelling. OBJECTIVE: GENERAL: In no acute distress. VITAL SIGNS: Temperature is 98, heart rate is 84, respiratory rate is 20, blood pressure 158/80, pulse ox 99% on room air. HEENT: Moist mucous membranes. Crowded airway. NECK: Supple. No JVD. LUNGS: Has fair airflow with rhonchi. HEART: S1 and S2. ABDOMEN: Soft and nontender. No organomegaly. EXTREMITIES: No edema. NEUROLOGICAL: Awake and alert. Follows simple commands. LABORATORY DATA: Reviewed, and no new lab is available since yesterday. MEDICATIONS: She is on Carafate 1 gm a.c. and at bedtime, Catapres patch 0.1 mg weekly, CellCept 500 mg daily, daptomycin 730 mg daily, DuoNeb q. 3 hours p.r.n., Lasix 40 mg twice a day, Lovenox 40 mg subcutaneously daily, simethicone 30 mL q. 4 hours p.r.n., Neurontin 300 mg three times a day, Pepcid 20 mg a.c., Percocet 5/325 one tablet daily p.r.n., prednisone 5 mg daily, Prozac 40 mg daily, Reglan 10 mg a.c. and at bedtime, Seroquel 400 mg at bedtime, patch q. 72 hours, Tylenol p.r.n. basis, Ultracet 37.5/325 one tablet q. 4 hours p.r.n., Xanax 2 mg four times a day p.r.n., Zanaflex 2 mg q. 8 hours, Zofran sublingual on p.r.n. basis. IMPRESSION AND PLAN: Central line related sepsis with bacteremia, Port-A-Cath catheter has been removed. Plan is to get the antibiotics through the midline. Obstructive lung disease, gastric bypass surgery in the remote past, anxiety disorder, lupus, benzodiazepine, opiates dependent, activities of daily living dysfunction. Pulmonary point of view, she is doing okay. I will suggest not to place any Port-A-Cath catheter for now, after completing the course of medication. The patient claimed that she goes to Hematology, getting weekly basis intravenous iron because of her gastric bypass surgery and severe anemia and also two to three times a year she gets blood transfusion, has no intravenous access, so I will leave her without any catheter for few weeks after the completion of antibiotics. We will let poll clerk also decide if she will require Port-A-Cath catheter. I will decrease Reglan to 5 mg four times a day. Continue antibiotics as per Infectious Diseases, gastric prophylaxis, bronchodilator, fall precautions. Thank you, and we will follow with you. Nicolle Pollack MD
[2017-02-08] MEDS: Enoxaparin 40 mg Syringe SC SCH (06:14)
[2017-02-08] MEDS: Sucralfate 1 gm/10 ml Oral Susp UD PO SCH ×4 (07:45→21:10)
--- NOTE | 2017-02-08 09:45 | PN ---
DATE: 02/08/2017 SUBJECTIVE: The patient is in bed in no acute distress, nontoxic. PHYSICAL EXAMINATION: VITAL SIGNS: Temperature is 97, blood pressure is 150/80, and respiratory rate of 18. HEENT: Unremarkable. NECK: Supple. LUNGS: Have decreased breath sounds. HEART: Normal S1 and S2. ABDOMEN: Soft and nontender. LABORATORY DATA: Reveals the patient to have white count of 7 and hemoglobin of 11. Creatinine is 1.3. Review of orders reveals the patient to be on daptomycin and prednisone. ASSESSMENT AND PLAN: This is a 46-year-old female who was seen in room 317 today. She is asking for a new Port-A-Cath for her iron therapy, although she says she commonly misses her iron therapy and this patient with methicillin-resistant coag-negative Staphylococcus bacteremia from a Port-A-Cath, which was taken out in the setting of lupus, chronic obstructive lung disease, Raynaud's, chronic renal failure, and spinal stenosis. Currently on day #9 of daptomycin with complete 10-14 days of daptomycin. From an infectious disease point of view, the patient is cleared for placement of a new Port-A-Cath. Dr. Jordan's note is reviewed. Dr. Pollack's note is reviewed. We will follow with you. Louis Masterson MD
[2017-02-08] MEDS: VIIBRYD 40 MG PO SCH (11:02)
--- NOTE | 2017-02-08 13:31 | IP.NPCORE ---
COPD Progress Note - COPD Progress Note FEV1/FVC<70: No Plan to assess at outpatient follow up: Yes Symptoms:: Increase in Dyspnea, Cough Initial CXR:: negative Date:: 02/22/17 Oxygen Saturation/Pulse Oximetry:: 99 ABG Not Indicated (Symptoms Improved): Yes Nebulizers Q2-4 hrs:: Duonebs/Albuterol Therapy Antibiotics Not Indicated: Yes Systemic Steroids w/ methylprednisolone Name/Dose/Frequency:: Solumedrol 40 mg iv q 12 Oxygen Delivery Method: Room Air Smoking cessation counseling all stages copd exacerbation: Yes
--- NOTE | 2017-02-08 15:29 | PN ---
DATE: SUBJECTIVE: The patient is seen and examined on the bedside, looking comfortable. Last night she had episodes of hallucinations and delusions, was feeling disturbed, but she took care of that situation by herself. No fever. No chills. No nausea, vomiting, or diarrhea. No hematemesis or hematochezia. No swelling of the legs. No chest pain or palpitation. PHYSICAL EXAMINATION: VITAL SIGNS: Temperature 97, blood pressure 150/80, and respiratory rate 18. HEENT: Head is normocephalic and atraumatic. Eyes; PERRLA. Extraocular muscles are intact. Conjunctivae clear. Nose patent. Mucous membranes moist. NECK: Supple. No carotid bruits, JVD, or thyromegaly. CHEST: Bilaterally symmetrical. HEART: S1 and S2 positive. LUNGS: Clear to auscultation. ABDOMEN: Soft. Bowel sounds positive. No organomegaly. EXTREMITIES: No edema. No cyanosis. NEUROLOGIC: The patient is awake and alert. Moving all 4 extremities. No focal deficits. LABORATORY DATA: White blood cell 7.0, hemoglobin 11.5, hematocrit 37.4, and platelets 227. Sodium 141, potassium 3.4, BUN 20, creatinine 1.3, and glucose 91. MEDICATIONS: Sucralfate, clonidine, CellCept, daptomycin, albuterol, Lovenox, gabapentin, prednisone, scopolamine, alprazolam, Zofran, and Zyprexa. ASSESSMENT AND PLAN: Josie Hurst is a 46-year-old lady with anemia, lupus, chronic obstructive pulmonary disease, and asthma. The patient is with methicillin-resistant coagulase-negative Staphylococcus bacteremia from a Port-A-Cath, which was taken out in the setting of the lupus, chronic obstructive lung disease, Raynaud's, chronic renal failure, spinal stenosis, today is day 9 of daptomycin, to complete at least 10 to 14 days of the daptomycin. According to ID, the patient is cleared to get Port-A-Cath. Reviewed ID notes. Reviewed Dr. Pollack's notes also, history of gastric bypass surgery, anxiety, benzodiazepine and opioid dependency, activities of daily living dysfunction. Discussion done with the social worker psychiatric about the patient's care plan. Dr. Pollack decreased the Reglan. GI and DVT prophylaxis. Repeat labs. We will follow with you. Emelina Jordan MD [facility] # [id number]
--- NOTE | 2017-02-08 19:28 | PN ---
PULMONARY PROGRESS NOTE DATE: 02/08/2017 REFERRING PHYSICIAN: Dr. Jordan. SUBJECTIVE: She is lying in the bed, head at 45 degree. Night was unremarkable. According to the patient, she was hallucinating last night. No nausea, vomiting, or diarrhea. No leg pain or leg swelling. OBJECTIVE: GENERAL: In no acute distress. VITAL SIGNS: Temperature is 98, heart rate is 83, respiratory rate is 20, blood pressure 130/80 and pulse oximetry 98% on room air. HEENT: Moist mucous membranes. Crowded airway. NECK: Supple. No JVD. LUNGS: Has fair airflow with rhonchi. HEART: S1 and S2. ABDOMEN: Soft and nontender. No organomegaly. EXTREMITIES: No edema. NEUROLOGICAL: Awake and alert. Follows simple commands. MEDICATIONS: She is on Carafate 1 g a.c. and at bedtime, clonidine 0.1 mg patch weekly, CellCept 500 mg daily, daptomycin 730 mg weekly, DuoNeb q. 3 hours p.r.n., Lasix 40 mg twice a day, Lovenox 40 mg daily, Maalox 30 mL q. 4 hours p.r.n., Neurontin 300 mg three times a day, Pepcid 20 mg daily, prednisone 5 mg daily, Prozac 40 mg daily, Reglan 5 mg four times a day, Seroquel 400 mg at bedtime, scopolamine patch q. 72 hours, Tylenol p.r.n., Percocet 37.5/325 one tablet q. 6 hours p.r.n., Xanax 2 mg four times a day p.r.n., Zanaflex 2 mg q. 8 hours, Zofran p.r.n. basis and also Zyprexa 5 mg at bedtime is added. IMPRESSION AND PLAN: Being treated for bacteremia, had a line sepsis, history of [id number] which was removed, has a midline, getting IV antibiotics, obstructive lung disease, history of gastric bypass surgery in the remote past, anxiety disorder, lupus, benzodiazepine dependent and opiates dependent. Pulmonary point of view, she is doing okay. Continue bronchodilator. Keep head at 45 degrees. Fall precautions. Gastric and deep venous thrombosis prophylaxis. Antibiotics as per Infectious Disease. The patient is being followed by Psychiatry. Thank you and we will follow with you. Nicolle Pollack MD [facility] # [id number]
[2017-02-09] MEDS: TraMADol/Apap 37.5/325 mg Tab PO PRN ×3 (02:37→23:58)
[2017-02-09] MEDS ORDERED: Oxycodone/Acetaminophen 5/325 mg Tab PO ONE (06:08)
[2017-02-09] MEDS: Enoxaparin 40 mg Syringe SC SCH (06:28)
[2017-02-09] MEDS: Sucralfate 1 gm/10 ml Oral Susp UD PO SCH ×4 (08:39→21:01)
[2017-02-09] MEDS: VIIBRYD 40 MG PO SCH (11:09)
[2017-02-09 11:29] VITALS: RESP 18
[2017-02-09] MEDS: Iron Sucrose 100 mg/5 ml Inj IVP SCH (14:07)
[2017-02-09] MEDS: POLYETHYLENE GLYCOL 3350 17 GM/Dose PACKET PO SCH (14:07)
[2017-02-09 16:42] VITALS: O2SAT 99
--- NOTE | 2017-02-09 20:49 | PN ---
DATE: 02/09/2017 SUBJECTIVE: The patient is seen in bed, in no acute distress, and nontoxic. No fever or chills. No nausea. PHYSICAL EXAMINATION: VITAL SIGNS: Temperature is 98, blood pressure is 112/70, and respiratory rate of 16. HEENT: Unremarkable. NECK: Supple. LUNGS: Have decreased breath sounds. HEART: Normal S1 and S2. ABDOMEN: Soft and nontender. LABORATORY DATA: Reveals white count of 7 and hemoglobin of 11. Chemistry reveals the BUN of 20 and creatinine of 1.3. Microbiology is noted. ASSESSMENT AND PLAN: This is a 46-year-old female who was seen earlier this morning. The patient is requesting a Port-A-Cath and IV iron to be given, although she states she does commonly misses her iron therapy. The patient was admitted with chronic obstructive lung disease, Raynaud's disease, chronic renal failure, spinal stenosis, had methicillin-resistant coagulase-negative Staphylococcus bacteremia from a Port-A-Cath, which was removed, today is day #10 of daptomycin with complete 10 to 14 days of daptomycin. From an Infectious Disease point of view, the patient is cleared for Port-A-Cath placed for a new Port-A-Cath to be done. We will follow closely with you. Louis Masterson MD
--- NOTE | 2017-02-09 22:56 | PN ---
PULMONARY PROGRESS NOTE DATE: 02/09/2017 REFERRING PHYSICIAN: Dr. Jordan. SUBJECTIVE: She is lying in the bed, head at 45 degree. Night was unremarkable. No headache. No rhinitis. No nausea. No vomiting or diarrhea. No leg pain or leg swelling. OBJECTIVE: GENERAL: In no acute distress. VITAL SIGNS: Temperature 98, heart rate is 77, respiratory rate is 18, blood pressure 116/79, pulse oximetry 97% on room air. HEENT: Moist mucous membrane. Crowded airway. Mallampati score is IV. NECK: Supple. No JVD. LUNGS: Has a fair airflow with few rhonchi. HEART: S1 and S2. ABDOMEN: Soft and nontender. No organomegaly. EXTREMITIES: There is no edema. NEUROLOGIC: Awake and alert. Follows simple commands. MEDICATIONS: She is on Carafate 1 g a.c. and at bedtime, clonidine patch weekly, CellCept 500 mg twice a day, daptomycin 730 mg q. 24 hours, DuoNeb q. 3 hours p.r.n., Lasix 40 mg twice a day, Flonase 40 mg daily, Maalox p.r.n. basis, MiraLax 17 g daily, Neurontin 300 mg three times a day, Pepcid 20 mg a.c., Percocet 5/325 one tablet daily, prednisone 5 mg daily, Prozac 40 mg daily, Reglan 5 mg four times a day, Seroquel 400 mg at bedtime, transdermal patch q. 72 hours, Tylenol p.r.n., Ultracet 37.5/325 one tablet q. 6 hours p.r.n., Venofer 100 mg IV daily, Xanax 2 mg four times a day. p.r.n., Zanaflex 2 mg 3 times a day, Zyprexa 5 mg at bedtime, and Zofran p.r.n. basis. LABORATORY DATA: Reviewed that shows C-reactive protein with 3.03. IMPRESSION AND PLAN: Line related bacteremia, methicillin-resistant Staphylococcus aureus, on antibiotics, chronic obstructive lung disease, history of gastric bypass surgery in the remote past, lupus, anxiety disorder, benzodiazepine and opiates dependent. Pulmonary point of view, she is doing okay. Continue bronchodilator. Keep head at 45 degree. Fall precautions. Antibiotics as per Infectious Disease. We will discontinue Reglan. Thank you and we will follow with you. Nicolle Pollack MD
--- NOTE | 2017-02-10 02:30 | PN ---
DATE: 02/09/2017 The patient is seen and examined at the bedside. SUBJECTIVE: The patient is looking comfortable. No nausea, vomiting, or diarrhea. According to the patient, last night, she had one episode of hallucination and delusion, even nobody was in her room but she was talking to somebody. Then the patient was advised that we will not give you too much pain medication. No fever. No chills. No headache. No dizziness. No diarrhea. PHYSICAL EXAMINATION: VITAL SIGNS: Temperature 98, heart rate 77, respiratory rate 18, blood pressure 116/79, pulse oximetry 97% on room air. HEENT: Head normocephalic, atraumatic. Eyes: PERRLA. Extraocular muscles intact. Conjunctivae clear. Nose patent. Mucous membrane moist. NECK: Supple. No carotid bruits, JVD, or thyromegaly. CHEST: Bilaterally symmetrical. HEART: S1 and S2 positive. LUNGS: Clear to auscultation. ABDOMEN: Soft. Bowel sounds positive. No organomegaly. EXTREMITIES: No edema. No cyanosis. NEUROLOGICAL: The patient is awake and alert. Moving all 4 extremities. No focal deficits. MEDICATIONS: Carafate, clonidine, CellCept, daptomycin, Lasix, Flonase, MiraLax, Neurontin, Pepcid, Percocet, prednisone, Prozac, Reglan, Seroquel, transdermal patch, Ultracet, Venofer, Xanax, Zanaflex, Zyprexa. LABORATORY DATA: We do not have any recent lab today, but I reviewed her old labs. ASSESSMENT AND PLAN: Ms. Josie Hurst is a 46-year-old lady with line related bacteremia, Port-A-Cath, methicillin-resistant Staphylococcus aureus, on antibiotics, Dr. Masterson, Infectious Disease is on the case. According to him, antibiotics of daptomycin should be 10 to 14 days, today is almost eleventh day; history of gastric bypass surgery in the remote past; chronic obstructive pulmonary disease; lupus; anxiety disorder; benzodiazepine and opiates dependency. Discussion done with Dr. Masterson and Dr. Ruddy Soliz. According to Dr. Masterson, antibiotics daptomycin should be from 10 to 14 days and after that we can put port as Dr. Ruddy Soliz. According to him, the patient need 4 to 7 weeks rest and then we can put port. The patient needs some line for iron infusion once a week. Now, plan is that we are giving iron infusion today and tomorrow and after the patient discharged, remove the midline and we will schedule appointment for port placement. We will follow. Emeilna Jordan MD
[2017-02-10] MEDS ORDERED: Oxycodone/Acetaminophen 5/325 mg Tab PO SCH (06:00)
[2017-02-10] MEDS: Enoxaparin 40 mg Syringe SC SCH (06:33)
[2017-02-10 07:28] LABS: IRON 432 ug/dL (45-180)
[2017-02-10] MEDS: Sucralfate 1 gm/10 ml Oral Susp UD PO SCH ×2 (08:08→12:30)
[2017-02-10] MEDS: Alum-Mag Hydrox-Simethicone Susp (30 mL) PO PRN ×2 (08:09→16:12)
[2017-02-10] MEDS: VIIBRYD 40 MG PO SCH (10:41)
[2017-02-10] MEDS: Iron Sucrose 100 mg/5 ml Inj IVP SCH (10:44)
[2017-02-10 10:47] VITALS: BP 135/81
[2017-02-10 11:00] VITALS: PULSE 89; TEMP 98.1
[2017-02-10] MEDS: POLYETHYLENE GLYCOL 3350 17 GM/Dose PACKET PO SCH (11:00)
[2017-02-10] MEDS: TraMADol/Apap 37.5/325 mg Tab PO PRN (12:42)
--- NOTE | 2017-02-10 12:51 | PN ---
DATE: 02/10/2017 SUBJECTIVE: The patient is in bed, in no acute distress, nontoxic. PHYSICAL EXAMINATION: VITAL SIGNS: Temperature is 98, blood pressure is 116/70, respiratory rate of 16. HEENT: Unremarkable. NECK: Supple. LUNGS: Have decreased breath sounds. HEART: Normal S1, S2. ABDOMEN: Soft, nontender. LABORATORY EXAMINATION: Reveals a white count of 7, hemoglobin of 11, platelets of 227. Chemistries are noted, BUN of 20 and creatinine of 1.3. ASSESSMENT AND PLAN: A 46-year-old female, who is seen in transitional care, had Port-A-Cath infection with coagulase-negative Staphylococcus bacteremia, Port-A-Cath was removed. Today is day #11 of daptomycin, and the patient is doing well. From Infectious Disease point of view, she is cleared for a new Port-A-Cath placement. Louis Masterson MD
[2017-02-10 13:33] LABS: FOLATE 8.9 ng/mL
--- NOTE | 2017-02-10 22:53 | PN ---
DATE: 02/10/2017 PULMONARY PROGRESS NOTE REFERRING PHYSICIAN: Emelina Jordan MD. SUBJECTIVE: She is sitting on side of the bed. Her midline catheter has been removed. Antibiotics course is finished. She feels okay. No headache, no rhinitis, no nausea, no vomiting or diarrhea. No leg pain or leg swelling. OBJECTIVE: GENERAL: In no acute distress. VITAL SIGNS: Temperature 98, heart rate 89, respiratory rate 18, blood pressure 135/81, pulse oximetry 99% on room air. HEENT: Moist mucous membrane. Crowded airway. NECK: Supple. No JVD. LUNGS: Fair airflow with few rhonchi. HEART: S1 and S2. ABDOMEN: Soft and nontender. No organomegaly. EXTREMITIES: No edema. NEUROLOGIC: Awake, alert, and follows simple commands. MEDICATIONS: Reviewed. No new changes in medication reported, antibiotics have been discontinued, iron was discontinued. LABORATORY DATA: Shows her iron is 432, TIBC 360, hemoglobin A1c 5.5, cholesterol is 270, B12 is 418, folate is 8.9, C-reactive protein 3.03. IMPRESSION AND PLAN: Status post bacteremia, completed antibiotics; chronic obstructive lung disease; history of gastric bypass surgery in the remote past; lupus; anxiety disorder; benzodiazepine dependent. I had a long discussion with the patient about risk of benzodiazepine and opiates. She expressed understanding. Avoid smoking, weight loss, fall precautions, should have pulmonary function test as an outpatient. Thank you and we will follow with you. Nicolle Pollack MD
== END 2017-02-10 17:11 | disposition home or self-care (01) | DRG 314 ==
LOC: TRCU 17:56
PROVIDERS: ADMIT Internal Medicine; ATTEND Internal Medicine
PROC: F08Z4FZ Home Management Treatment using Assistive, Adaptive, Supportive or Protective Equipment (ICD-10-PCS; 2017-02-01)
PROC: F07Z9ZZ Gait Training/Functional Ambulation Treatment (ICD-10-PCS; principal; 2017-02-02)
PROC: F07L6YZ Therapeutic Exercise Treatment of Musculoskeletal System - Lower Back / Lower Extremity using Other Equipment (ICD-10-PCS; 2017-02-02)
PROC: F07Z8ZZ Transfer Training Treatment (ICD-10-PCS; 2017-02-03)
DX: T80.211A Bloodstream infection due to central venous catheter, initial encounter (principal); A41.02 Sepsis due to Methicillin resistant Staphylococcus aureus; J44.1 Chronic obstructive pulmonary disease with (acute) exacerbation; F13.20 Sedative, hypnotic or anxiolytic dependence, uncomplicated; F11.20 Opioid dependence, uncomplicated; Z68.42 Body mass index [BMI] 45.0-49.9, adult; E66.01 Morbid (severe) obesity due to excess calories; I27.20 Pulmonary hypertension, unspecified; F25.9 Schizoaffective disorder, unspecified; M32.9 Systemic lupus erythematosus, unspecified; K21.9 Gastro-esophageal reflux disease without esophagitis; K25.9 Gastric ulcer, unspecified as acute or chronic, without hemorrhage or perforation; M48.00 Spinal stenosis, site unspecified; N18.9 Chronic kidney disease, unspecified; I73.00 Raynaud's syndrome without gangrene; F41.9 Anxiety disorder, unspecified; F32.9 Major depressive disorder, single episode, unspecified; G89.29 Other chronic pain; D64.9 Anemia, unspecified; F17.200 Nicotine dependence, unspecified, uncomplicated; Z98.84 Bariatric surgery status; Y84.8 Other medical procedures as the cause of abnormal reaction of the patient, or of later complication, without mention of misadventure at the time of the procedure; Z87.11 Personal history of peptic ulcer disease; Z86.718 Personal history of other venous thrombosis and embolism

== ENCOUNTER 2017-04-12 10:34 | Day surgery (SDC) | payer MEDICARE, MEDICAID ==
[2017-04-07 14:19] VITALS: BMI 42.5
[2017-04-12 11:05] LABS: BASO # 0.02 K/mm3 (0.0-2.0); BASO % 0.3 % (0.0-3.0); EOS # 0.1 (0.0-0.7); EOS % 1.6 % (1.5-5.0); GRAN # 3.49 (1.4-6.5); GRAN % 54.3 % (50.0-68.0); HEMOGLOBIN 12.5 g/dL (12.0-16.0); LYMPH # 2.2 (1.2-3.4); LYMPH % 34.9 % (22.0-35.0); MEAN CELL VOLUME 81.1 fl (80.0-105.0); MEAN CORPUSCULAR HEMOGLOBIN 25.4 pg (25.0-35.0); MEAN CORPUSCULAR HGB CONC 31.3 g/dl (31.0-37.0); MEAN PLATELET VOLUME 10.3 fl (7.0-11.0); MONO # 0.6 (0.1-0.6); MONO % 8.9 % (1.0-6.0); RBC 4.93 10^6/uL (3.5-6.1); RED CELL DISTRIBUTION WIDTH 16.3 % (11.5-14.5); WHITE BLOOD COUNT 6.4 10^3/ul (4.5-11.0)
[2017-04-12 11:17] LABS: CALCIUM 9.2 mg/dL (8.4-10.5)
[2017-04-12 11:22] LABS: INR 0.89 (0.93-1.08); PARTIAL THROMBOPLASTIN TIME 30.6 Seconds (25.1-36.5); PROTHROMBIN TIME 10.2 SECONDS (9.4-12.5)
[2017-04-12] MEDS ORDERED: Lidocaine 2% Inj (20ml) ONE (13:47)
[2017-04-12] MEDS ORDERED: HEPARIN SODIUM/NS 1,000 ML IV ONE (13:48)
[2017-04-12] MEDS ORDERED: Midazolam 2 MG/2 ML VIAL ONE ×3 (14:12→14:37)
[2017-04-12] MEDS ORDERED: Oxycodone/Acetaminophen 5/325 mg Tab PO PRN (15:06)
[2017-04-12] MEDS ORDERED: Iodixanol 320 MG/ML 200 ML BOTTLE IV ONE (15:14)
[2017-04-12] MEDS ORDERED: Iodixanol 320 MG/ML 100 ML BOTTLE IV ONE (15:14)
[2017-04-12] MEDS ORDERED: Sodium Chloride 0.45% 1,000 ML IV SCH (15:15)
[2017-04-12 15:54] VITALS: BP 107/69; PULSE 73; RESP 18; TEMP 97.9; O2SAT 98
--- NOTE | 2017-04-12 18:27 | VASCULAR ---
PROCEDURE: Ultrasound and fluoroscopic right internal jugular venous access port. CLINICAL HISTORY: Chronic iron deficiency anemia. Frequent iron infusions. Limited IV access. PHYSICIAN(S): Ruddy Soliz M.D. TECHNIQUE: The relative risks and indications of the procedure were explained to the patient and consent obtained. The patient was placed supine on the arteriogram table and the right neck and chest prepped and draped in the usual sterile fashion. Conscious sedation monitoring was provided throughout the procedure by a nurse. Antibiotics were given prior to the procedure. Under direct ultrasound guidance, the right internal jugular vein was punctured with a micro-puncture set. A 0.035 angled Glidewire was advanced into the IVC. A 4 cm incision was made over the right clavicle and the pocket blunted dissected. A 8 Bulgarian single-lumen catheter, 25 cm long, was advanced to the SVC/RA junction. The catheter was trimmed and attached to the port. The port aspirates and injects easily. The port was placed in the pocket and closed in 2 layers. The patient tolerated the procedure well. IMPRESSION: Ultrasound and fluoroscopically placed right internal jugular venous access port.
== END 2017-04-12 16:00 | disposition home or self-care (01) ==
LOC: SDSVAS 10:34
PROVIDERS: ATTEND Radiology Vascular & Interventional Radiology
DX: D50.9 Iron deficiency anemia, unspecified (principal); M32.9 Systemic lupus erythematosus, unspecified; I25.10 Atherosclerotic heart disease of native coronary artery without angina pectoris; I10 Essential (primary) hypertension
CPT/HCPCS: 36415; 36561; 76937; 77001; 80048; 85025; 85610; 85730; 99152; C1769; C1788; J0690; J1644; J2250; J2405; J3010; J7030; Q9967

== ENCOUNTER 2017-07-14 15:29 | Inpatient (IN) | payer MEDICARE, MEDICAID ==
[2017-07-14 15:30] VITALS: BMI 42.5
[2017-07-14] MEDS ORDERED: TDAP Vaccine 0.5 mL Syr IM ONE (17:06)
--- NOTE | 2017-07-14 17:29 | ED PDOC ---
Arrival/HPI - General Chief Complaint: Weakness/Neurological Deficit Time Seen by Provider: 07/14/17 16:30 Historian: Patient - History of Present Illness Narrative History of Present Illness (Text): 07/14/17 17:28 A 47 year old female, left hand dominant, whose past medical history includes Lupus, stage 3 renal failure, diagnosed with glomerulonephritis, on CellCept, presents to the emergency department complaining of 2 weeks of left arm and left leg numbness, tingling and intermittent weakness. Patient describes falling out of her bed, without realizing it 2weeks ago. Patient states left sided chest discomfort developed since the fall. Patient was evaluated by her pain mgt doctor two weeks ago, and was subsequently instructed to go to nearest Emergency department. Patient reported to [facility] and was admitted for TIA vs CVA. Patient stayed for three days and signed out against medical advice. Patient saw her PMD (dr Jordan) 4 days ago, who instructed patient to come to emergency department (at [place]) immediately, however, presents today because patient had to take care of her at home issues/problems. Patient states weakness, numbness, tingling remains. Denies any vision changes. + Reports seeing floaters however. Denies any gross headache, photophobia or neck pain. Reports left sided chest pain, shortness of breath and wheezing. Denies any abdominal pain, nausea, vomiting, urinary or bowel changes/ incontinence or any other complaints at this time. Patient presents to the emergency department for further evaluation. pt denied new LOC pt denied slurr speechy pt is here for further eval PMD: Dr. Jordan Weatherization Installer: Dr. Zamarripa Time/Duration: > week (2 weeks) Symptom Onset: Sudden Symptom Course: Unchanged Activities at Onset: Rest Context: Home Past Medical History - Provider Review Nursing Documentation Reviewed: Yes - Travel History Have you recently traveled outside [place] w/in the past 3 mons?: No - Past History Past History: No Previous - Infectious Disease Hx of Infectious Diseases: None - Tetanus Immunization Tetanus Immunization: Up to Date - Reproductive Menopause: No Currently : No - Cardiac Hx Hypertension: Yes Hx Pacemaker: No - Pulmonary Hx Chronic Obstructive Pulmonary Disease (COPD): Yes - Neurological Hx Paralysis: No - HEENT Hx HEENT Disorder: No - Renal Hx Renal Disorder: Yes Hx Renal Failure: Yes - Endocrine/Metabolic Hx Endocrine Disorders: Yes Hx Systemic Lupus Erythematosus: Yes - Hematological/Oncological Hx Blood Transfusions: No - Integumentary Hx Dermatological Disorder: No - Musculoskeletal/Rheumatological Hx Musculoskeletal Disorders: Yes - Gastrointestinal Hx Gastrointestinal Disorders: Yes (hx GERD, GI ulcers) - Genitourinary/Gynecological Hx Genitourinary Disorders: No - Psychiatric Hx Emotional Abuse: No Hx Physical Abuse: No Hx Substance Use: No - Surgical History Hx Mastectomy: No - Anesthesia Hx Anesthesia Reactions: No Hx Malignant Hyperthermia: No - Suicidal Assessment Feels Threatened In Home Enviroment: No Family/Social History - Physician Review Nursing Documentation Reviewed: Yes Family/Social History: No Known Family HX Smoking Status: Heavy Smoker > 10 Cigarettes Daily Hx Alcohol Use: No Hx Substance Use: No Hx Substance Use Treatment: No Allergies/Home Meds Allergies/Adverse Reactions: Allergies No Known Allergies Allergy (Verified 02/01/17 00:38) per patient Home Medications: Home Meds Medication Instructions Recorded Confirmed Albuterol HFA [Ventolin HFA 90 1 inh INH PRN PRN 04/07/17 07/14/17 mcg/actuation (8 g)] Alprazolam [Xanax] 2 mg PO TID 04/07/17 07/14/17 Budesonide/Formoterol Fumarate 2 puff INH DAILY 04/07/17 07/14/17 [Symbicort 160-4.5 Mcg Inhaler] Clonidine [Catapres-Tts 1] 0.2 mg TOP Q7D 04/07/17 07/14/17 Ergocalciferol (Vitamin D2) 50,000 units PO Q7D 04/07/17 07/14/17 [Vitamin D2] FLUoxetine [Prozac] 20 mg PO DAILY 04/07/17 07/14/17 Fentanyl [Duragesic Patch] 150 mcg TOP Q72H 04/07/17 07/14/17 Furosemide [Lasix] 40 mg PO BID 04/07/17 07/14/17 Levofloxacin [Levaquin] 750 mg PO PRN PRN 04/07/17 07/14/17 Methocarbamol [Robaxin] 750 mg PO TID 04/07/17 07/14/17 Montelukast [Singulair] 10 mg PO DAILY 04/07/17 07/14/17 Mycophenolate Mofetil [Cellcept] 500 mg PO DAILY 04/07/17 07/14/17 OLANZapine [Zyprexa Zydis] 5 mg PO DAILY 04/07/17 07/14/17 Pantoprazole [Protonix EC Tab] 40 mg PO DAILY 04/07/17 07/14/17 Polyethylene Glycol 3350 [Miralax] 17 gm PO DAILY 04/07/17 07/14/17 Potassium Chloride [Klor-Con 10] 10 meq PO DAILY 04/07/17 07/14/17 Pregabalin [Lyrica] 200 mg PO TID 04/07/17 07/14/17 QUEtiapine [SEROquel] 400 mg PO HS 04/07/17 07/14/17 Scopolamine [Transderm-Scop] 1 applic TOP Q72H 04/07/17 07/14/17 Tiotropium [Spiriva] 2 puff INH BID 04/07/17 07/14/17 Ursodiol [Actigall] 300 mg PO BID 04/07/17 07/14/17 Vilazodone HCl [Viibryd] 40 mg PO DAILY 04/07/17 07/14/17 Zolpidem [Ambien] 12.5 mg PO HS 04/07/17 07/14/17 methylPREDNISolone [Medrol] 4 mg PO PRN PRN 04/07/17 07/14/17 oxyCODONE [oxyCODONE Immediate 15 mg PO 5XD 04/07/17 07/14/17 Release Tab] Doc-Q-Lac 100 mg pe PO PRN PRN 07/14/17 07/14/17 Review of Systems - Physician Review All systems were reviewed & negative as marked: Yes - Review of Systems Constitutional: absent: Fatigue, Weight Change Eyes: absent: Vision Changes, Photophobia ENT: Normal Respiratory: SOB, Wheezing Cardiovascular: Chest Pain (left sided) Gastrointestinal: absent: Abdominal Pain, Stool Changes, Diarrhea, Nausea, Vomiting Genitourinary Female: Normal. absent: Urine Output Changes Musculoskeletal: Other (left arm and left leg weakness, numbness and tingling). absent: Neck Pain Skin: Normal Neurological: Focal Weakness, Other (left arm/leg numbness/tingling). absent: Headache, Facial Droop Endocrine: Normal Hemo/Lymphatic: Normal Psychiatric: Normal Physical Exam Vital Signs Reviewed: Yes Vital Signs Temp Pulse Resp BP Pulse Ox 07/14/17 19:02 99.0 F 68 20 147/92 H 100 07/14/17 16:18 98.9 F 88 18 141/90 100 Temperature: Afebrile Blood Pressure: Hypertensive Pulse: Regular Respiratory Rate: Normal Appearance: Positive for: Well-Appearing, Non-Toxic, Uncomfortable, Other (alert /awake, GCS = 15, oriented x 3, resting in bed, coopeartive, NAD) Pain Distress: None Mental Status: Positive for: Alert and Oriented X 3 - Systems Exam Head: Present: Atraumatic, Normocephalic Pupils: Present: PERRL, Other (wearing eyeglasses, no photophobia, sceral anicteric, no nystagmus; visual field intact b/l) Extroacular Muscles: Present: EOMI Conjunctiva: Present: Normal Ears: Present: Normal Mouth: Present: Moist Mucous Membranes, Normal Teeth, Other (uvula/tongue are midline, no exudate/lesions, no drooling/stridor) Pharnyx: Present: Normal Nose (External): Present: Atraumatic Nose (Internal): Present: Normal Inspection Neck: Present: Normal Range of Motion, Trachea Midline. No: Meningeal Signs, MIDLINE TENDERNESS, Paraspinal Tenderness Respiratory/Chest: Present: Wheezes, Decreased Breath Sounds, Other (+ b/l wheezing right > left, no accessory muscle use noted, no tachypenia, no rales/ rhonchi noted). No: Respiratory Distress, Accessory Muscle Use Cardiovascular: Present: Regular Rate and Rhythm, Normal S1, S2. No: Murmurs Abdomen: Present: Normal Bowel Sounds, Other (well nourished/obese female, no focal tenderness, no kwon's sign, no mcburney's point tenderness, no masses/ rebound/guarding/rigidity). No: Tenderness, Distention, Peritoneal Signs Back: Present: Normal Inspection, Other (intact ROM, no step off). No: CVA Tenderness, Midline Tenderness, Paraspinal Tenderness Upper Extremity: Present: Normal Inspection, Normal ROM, NORMAL PULSES, Other ( + left arm decr strength noted 4+/5, intact ROM, noted left posterior elbow skin abrasion, no surrounding skin erythema noted, no gross discharge/bleeding noted). No: Cyanosis, Edema Lower Extremity: Present: Normal Inspection, NORMAL PULSES, Normal ROM, Neurovascularly Intact, Other (decr left leg strength 4+/5, no gross deformities noted). No: Edema Neurological: Present: GCS=15, CN II-XII Intact, Speech Normal Skin: Present: Warm, Dry, Normal Color, Other (cap refill < 1sec, no ulcerations , no petechiae, no rashes). No: Rashes, Pale Psychiatric: Present: Alert, Oriented x 3, Normal Insight, Normal Concentration Medical Decision Making ED Course and Treatment: 07/14/17 17:00 Impression: A 47 year old female with left arm, left leg weakness, numbness and tingling, left sided chest pain. Statement: I have considered all of the differential diagnostics regarding patient's chief medical complaints/ clinical findings, including but not limited to: r/o cva/tia, chest r/o acs, copd exacerbation, LUPUS disorder Assessment for A/ P -- CT head -- EKG -- labs -- Chest X-ray -- Urinalysis -- Aspirin, Boostrix, Albuterol, Solumedrol 17:[address] Jordan will admit patient, to consult Dr. Blackwell, Neurologist, Dr. Pollack, Front Sight Attacher, and Dr. Zamarripa, cardiology 07/14/17 18:[address] Blackwell, who would like MRI with and without contrast for brain to be performed, not for CT to be done; will continue to monitor patient pt is currently comfortable pt denied acute chest pain pt is made aware of her medical results pt agrees with admission Re-evaluation Time: 19:30 Reassessment Condition: Unchanged - Critical Care Critical Care Minutes: 30 minutes Critical Care Time: Excluding Proc Time Narrative Critical Care (Text): 07/14/17 20:01 critical care time: 30min, excluding procedure time, excluding time teaching residents/students/mid-level providers; including initial eval/diagnosis, diagnostic interpretation, re-eval, consultations, final disposition - Lab Interpretations Lab Results: 07/14/17 18:00 07/14/17 18:00 Lab Results 07/14/17 18:15: Beta HCG, Quant 2.67 07/14/17 18:00: TSH 3rd Generation 1.53 07/14/17 18:00: Ammonia < 9 L 07/14/17 18:00: Sodium 143, Potassium 4.8, Chloride 112 H, Carbon Dioxide 20 L, Anion Gap 15, BUN 11, Creatinine 1.1, Est GFR ( Amer) > 60, Est GFR (Non- Af Amer) 53, Random Glucose 81, Calcium 8.8, Phosphorus 2.9, Magnesium 1.8, Total Bilirubin 0.1 L, AST 18, ALT 23, Alkaline Phosphatase 92, Lactate Dehydrogenase 526, Total Creatine Kinase 159, Troponin I < 0.01, Total Protein 7.1, Albumin 3.7, Globulin 3.4, Albumin/Globulin Ratio 1.1 07/14/17 18:00: PT 10.7, INR 0.94, APTT 32.1 07/14/17 18:00: WBC 7.4, RBC 4.77, Hgb 12.3, Hct 38.2, MCV 80.1, MCH 25.8, MCHC 32.2, RDW 15.2 H, Plt Count 244, MPV 10.3, Gran % 60.6, Lymph % (Auto) 27.7, Marshall % (Auto) 7.5 H, Eos % (Auto) 3.9, Baso % (Auto) 0.3, Gran # 4.50, Lymph # ( Auto) 2.1, Marshall # (Auto) 0.6, Eos # (Auto) 0.3, Baso # (Auto) 0.02 I have reviewed the lab results: Yes Interpretation: All labs normal - RAD Interpretation Narrative RAD Interpretations (Text): MRI pending 07/15/17 11:59 HISTORY: shortness of breath, left arm/leg weakness COMPARISON: 01/23/2017 FINDINGS: LUNGS: No active pulmonary disease. PLEURA: No significant pleural effusion identified, no pneumothorax apparent. CARDIOVASCULAR: No radiographic findings to suggest acute or significant cardiovascular disease. Venous access catheter in stable, satisfactory position. OSSEOUS STRUCTURES: No significant abnormalities. VISUALIZED UPPER ABDOMEN: Normal. OTHER FINDINGS: None. IMPRESSION: No active disease. No significant interval change compared to the prior examination(s). 07/15/17 11:59 Radiology Orders: 07/14/17 16:51 CHEST PORTABLE [RAD] Stat 07/14/17 17:59 BRAIN W & WO CONTRAST [MRI] Stat [employer]: Radiologist - EKG Interpretation EKG Interpretation (Text): 07/14/17 20:04 NSR at 70 bpm, LAD, no ectopy, inverted T in leads V1, no st changes, BORDERLINE EKG; unchanged compare with old ekg 12/2016 Interpreted by ED Physician: Yes Type: 12 lead EKG Comparison: Similar to previous EKG - Medication Orders Current Medication Orders: Albuterol (Ventolin Hfa 90 Mcg/Actuation (8 G)) 1 puff INH PRN PRN PRN Reason: Shortness of Breath Alprazolam (Xanax) 2 mg PO TID PRN; Protocol PRN Reason: Anxiety Last Admin: 07/15/17 09:19 Dose: 2 mg Clonidine HCl (Catapres Tts1 0.1 Mg/24 Hr) 1 patch TD Q7D [facility] Last Admin: 07/15/17 06:02 Dose: 1 patch MAR Pulse and Blood Pressure Document 07/15/17 06:02 [facility] (Rec: 07/15/17 06:04 [facility] [id number]) Pulse Pulse Rate (60-90) 82 Blood Pressure Blood Pressure (100/60-150/90) 115/72 MAR Transdermal Patch Site Document 07/15/17 06:02 [facility] (Rec: 07/15/17 06:04 [id number] Transdermal Patch Site Transdermal Patch Site Right Outer Upper Arm Ergocalciferol (Drisdol 50,000 Intl Units Cap) 1 cap PO Q7D [facility] Last Admin: 07/15/17 06:04 Dose: 1 cap Fentanyl (Duragesic) 0 patch TD Q72H [facility] Fluoxetine HCl (Prozac) 20 mg PO HS [facility] Last Admin: 07/14/17 23:31 Dose: 20 mg Furosemide (Lasix) 40 mg PO BID [facility] Last Admin: 07/15/17 09:14 Dose: 40 mg MAR Blood Pressure Document 07/15/17 09:14 DEL (Rec: 07/15/17 09:14 DEL [id number]) Blood Pressure Blood Pressure (100/60-150/90) 120/72 Hydroxychloroquine Sulfate (Plaquenil) 200 mg PO BID [facility] PRN Reason: Protocol Last Admin: 07/15/17 09:15 Dose: 200 mg Methocarbamol (Robaxin) 750 mg PO TID [facility] Last Admin: 07/14/17 23:52 Dose: 750 mg Montelukast Sodium (Singulair) 10 mg PO HS [facility] Last Admin: 07/14/17 23:31 Dose: 10 mg Mycophenolate Mofetil (Cellcept Cap) 500 mg PO DAILY [facility] Last Admin: 07/15/17 09:13 Dose: 500 mg Budesonide/Formoterol Fumarate [Symbicort 160-4.5 Mcg Inhaler] (Home Med) 2 puff INH DAILY [facility] Doc-Q-Lac 100 Mg Pe ((Home Med)) 100 mg pe PO PRN PRN PRN Reason: Constipation Vilazodone Hcl [ Viibryd] 40 Mg (Home Med) 40 mg PO DAILY [facility] Last Admin: 07/15/17 09:22 Dose: Olanzapine (Zyprexa Zydis) 5 mg PO DAILY [facility] PRN Reason: Protocol Last Admin: 07/15/17 09:16 Dose: 5 mg Oxycodone HCl (Oxycodone Immediate Release Tab) 15 mg PO 5XD [facility] Last Admin: 07/15/17 09:15 Dose: 15 mg Pantoprazole Sodium (Protonix Ec Tab) 40 mg PO 0600 [facility] Last Admin: 07/15/17 06:05 Dose: 40 mg Polyethylene Glycol (Miralax) 17 gm PO DAILY [facility] Last Admin: 07/15/17 09:17 Dose: 17 gm Potassium Chloride (Klor-Con 10) 10 meq PO DAILY [facility] Last Admin: 07/15/17 09:14 Dose: 10 meq Pregabalin (Lyrica) 200 mg PO TID [facility] Last Admin: 07/15/17 09:12 Dose: 200 mg Quetiapine Fumarate (Seroquel) 200 mg PO BID [facility] PRN Reason: Protocol Last Admin: 07/15/17 09:12 Dose: 200 mg Quetiapine Fumarate (Seroquel) 400 mg PO HS [facility] Scopolamine (Transderm-Scop) 1 patch TD Q72H [facility] Last Admin: 07/15/17 06:06 Dose: 1 patch MAR Transdermal Patch Site Document 07/15/17 06:06 CHANTEL (Rec: 07/15/17 06:06 CHANTEL [id number]) Transdermal Patch Site Transdermal Patch Site Behind Right Ear Tiotropium [place] (Spiriva) 18 mcg INH DAILY [facility] Ursodiol (Actigall) 300 mg PO BID [facility] Last Admin: 07/15/17 09:14 Dose: 300 mg Zolpidem Tartrate (Ambien) 12.5 mg PO HS CALIN PRN Reason: Protocol Discontinued Medications Albuterol/Ipratropium (Duoneb 3 Mg/0.5 Mg (3 Ml) Ud) 3 ml IH Q15M CALIN Stop: 07/14/17 17:31 Last Admin: 07/14/17 19:48 Dose: Not Given Non-Admin Reason: Patient Refused Aspirin (Aspirin) 325 mg PO STAT STA Stop: 07/14/17 16:53 Last Admin: 07/14/17 20:11 Dose: 325 mg Lorazepam (Ativan) 2 mg IVP ONCE ONE PRN Reason: Protocol Stop: 07/14/17 18:59 Last Admin: 07/14/17 20:07 Dose: 2 mg IVP Administration Document 07/14/17 20:07 AARON (Rec: 07/14/17 20:07 AARON [id number]) Charges for Administration # of IVP Administrations 1 Methylprednisolone (Solu-Medrol) 125 mg IVP STAT STA Stop: 07/14/17 16:53 Last Admin: 07/14/17 19:44 Dose: 125 mg IVP Administration Document 07/14/17 19:44 [email or web address] (Rec: 07/14/17 19:44 [email or web address] [id number]) Charges for Administration # of IVP Administrations 1 Olanzapine (Zyprexa Zydis) 5 mg PO DAILY CALIN PRN Reason: Protocol Tetanus/Reduced Diphtheria/Acell Pertussis (Boostrix Vaccine Inj) 0.5 ml IM .ONCE ONE Stop: 07/14/17 17:07 Last Admin: 07/14/17 19:45 Dose: 0.5 ml Immunization Registry Document 07/14/17 19:45 [email or web address] (Rec: 07/14/17 19:45 [email or web address] [id number]) Immunization Registry Consent Date 07/14/17 Zolpidem Tartrate (Ambien) 5 mg PO STAT STA PRN Reason: Protocol Stop: 07/14/17 23:13 Last Admin: 07/14/17 23:28 Dose: 5 mg Behavioural Document 07/14/17 23:28 ZARAL (Rec: 07/14/17 23:28 ZARAL [id number]) Maintenance Maintenance Dose Yes Behavior Behavior for Medication: Insomnia NIHSS Scale([place])3 Time Performed: 16:49 - How Severe is the Stoke Baseline Level of Consciousness: 0=Alert LOC to Questions: 0=Both comments correct LOC to commands: 0=Obeys both correctly Best Gaze: 0=Normal Visual: 0=No visual loss Facial: 0=Normal Motor Arm - Left: 1=Drift noted before 10 sec Motor Arm - Right: 0=No drift Motor Leg - Left: 1=Drift before 5 sec Motor Leg - Right: 0=No drift Limb Ataxia: 0=Absent Sensory: 0=Normal Best Language: 0=No aphasia Dysarthia: 0=Normal articulation Extinction & Inattention (Neglect): 0=Normal, no object Score: 2 Risk Level: Minor Stroke Risk - Scribe Statement The provider has reviewed the documentation as recorded by the Isai Johnson Provider Scribe Attestation: All medical record entries made by the Scribe were at my direction and personally dictated by me. I have reviewed the chart and agree that the record accurately reflects my personal performance of the history, physical exam, medical decision making, and the department course for this patient. I have also personally directed, reviewed, and agree with the discharge instructions and disposition. Disposition/Present on Arrival - Present on Arrival Any Indicators Present on Arrival: No History of DVT/PE: No History of Uncontrolled Diabetes: No Urinary Catheter: No History of Decub. Ulcer: No History Surgical Site Infection Following: None - Disposition Have Diagnosis and Disposition been Completed?: Yes Diagnosis: TIA (transient ischemic attack), Paresthesia of left arm and leg, Chest pain with moderate risk for cardiac etiology, Wheezing, Shortness of breath, COPD ( chronic obstructive pulmonary disease), Lupus Disposition: HOSPITALIZED Disposition Time: 19:35 Patient Plan: Admission, Telemetry Patient Problems: Current Active Problems Problem Status Onset COPD (chronic obstructive pulmonary disease) Chronic Lupus Chronic TIA (transient ischemic attack) Acute Paresthesia of left arm and leg Acute Chest pain with moderate risk for cardiac etiology Acute Wheezing Acute Shortness of breath Acute Condition: STABLE
[2017-07-14 18:24] LABS: BASO # 0.02 K/mm3 (0.0-2.0); BASO % 0.3 % (0.0-3.0); EOS # 0.3 (0.0-0.7); EOS % 3.9 % (1.5-5.0); GRAN # 4.5 (1.4-6.5); GRAN % 60.6 % (50.0-68.0); HEMOGLOBIN 12.3 g/dL (12.0-16.0); LYMPH # 2.1 (1.2-3.4); LYMPH % 27.7 % (22.0-35.0); MEAN CELL VOLUME 80.1 fl (80.0-105.0); MEAN CORPUSCULAR HEMOGLOBIN 25.8 pg (25.0-35.0); MEAN CORPUSCULAR HGB CONC 32.2 g/dl (31.0-37.0); MEAN PLATELET VOLUME 10.3 fl (7.0-11.0); MONO # 0.6 (0.1-0.6); MONO % 7.5 % (1.0-6.0); RBC 4.77 10^6/uL (3.5-6.1); RED CELL DISTRIBUTION WIDTH 15.2 % (11.5-14.5); WHITE BLOOD COUNT 7.4 10^3/ul (4.5-11.0)
[2017-07-14 18:29] LABS: INR 0.94 (0.93-1.08); PARTIAL THROMBOPLASTIN TIME 32.1 Seconds (25.1-36.5); PROTHROMBIN TIME 10.7 SECONDS (9.4-12.5)
[2017-07-14 18:30] LABS: ALB/GLOB RATIO 1.1 (1.1-1.8); ALBUMIN 3.7 g/dL (3.0-4.8); ALT/SGPT 23 U/L (7-56); AST/SGOT 18 U/L (14-36); BLOOD UREA NITROGEN 11 mg/dL (7-21); CALCIUM 8.8 mg/dL (8.4-10.5); GFR AFRICAN-AMERICAN > 60; GFR NON-AFRICAN AMERICAN 53
[2017-07-14 18:41] LABS: TROPONIN I < 0.01 ng/mL
[2017-07-14] MEDS: Albuterol-Ipratrop 3 mg / 0.5 (3 ml) UD IH SCH ×3 (19:18→19:48)
--- NOTE | 2017-07-14 22:26 | CT ---
EXAM: CT Head Without Intravenous Contrast EXAM DATE/TIME: 07/14/2017 9:21 PM CLINICAL HISTORY: The patient age is 47 years old and is female; Signs and symptoms; Walking, difficulty; Additional info: Post CVA Facility exam id and description: Ct heads head w/o contrast TECHNIQUE: Axial computed tomography images of the head/brain without intravenous contrast. All CT scans at this facility use one or more dose reduction techniques, viz.: automated exposure control; ma/kV adjustment per patient size (including targeted exams where dose is matched to indication; i.e. head); or iterative reconstruction technique. Coronal and sagittal reformatted images were created and reviewed. COMPARISON: CT - HEAD W/O CONTRAST 2015-02-09 21:30 FINDINGS: Brain: The white-márquez differentiation is preserved demonstrating no acute territorial type infarct. No acute intracranial hemorrhage is seen. No significant white matter disease visualized. Midline shift: There is no midline shift. Ventricles: No ventriculomegaly. Bones/joints: The calvarium demonstrates no evidence for a depressed fracture. Soft tissues: No acute abnormality. Sinuses: There is mucosal thickening of the left sphenoid sinus. A small mucous retention cyst or polyp is visualized within the frontal sinus. Mastoid air cells: No mastoid effusion. IMPRESSION: 1. No acute intracranial abnormality. 2. Paranasal sinus disease is noted above.
[2017-07-14] MEDS: OLANZapine 5 mg Disintegrating Tab PO SCH (23:31)
[2017-07-14] MEDS: Methocarbamol 500 MG Tab PO SCH (23:52)
[2017-07-15] MEDS ORDERED: Albuterol HFA 90 mcg/actuation (8 g) INH PRN (00:01)
[2017-07-15] MEDS ORDERED: Ergocalciferol 50,000 Intl Units Cap PO SCH (00:15)
--- NOTE | 2017-07-15 05:35 | HP ---
DATE OF SERVICE: 07/14/2017 CHIEF COMPLAINT: Weakness on the left side, especially left upper extremity. HISTORY OF PRESENT ILLNESS: Ms. Josie Hurst is a 47-year-old female, left-hand dominant, whose past medical history includes multiple problems, lupus, stage III renal disease, has glomerulonephritis, on Cellcept, came to emergency room complaining of 2 weeks of left arm and left hand numbness, tingling and intermittent weakness. Patient described falling out of her bed without realizing it 2 weeks ago. Patient states that left-sided chest discomfort developed since the fall. Patient was evaluated by her pain MD 2 weeks ago and was subsequently instructed to go to nearest emergency department; patient reported to [facility] and was admitted for TIA versus CVA. Plan was to do MRI, but patient has port and they were not sure that they can do MRI or not. Patient stayed there for 3 days and signed against medical advice. Patient then came in my office after 4 days, and I instructed the patient to go to nearest emergency room immediately, but patient went home, did her important chores, and now came back to [facility] with the same persistent numbness of the left upper extremity. Patient states weakness, numbness, and tingling remains same. Denies vision changes. Positive report of seeing floaters; however, denies any gross headache, photophobia, or neck pain. Reports left-sided chest pain, shortness of breath and wheezing. Denies any abdominal pain, nausea, or vomiting, diarrhea, hematuria, hematochezia, or incontinence. Sometimes complaining about constipation. Discussion done with ER physician. Admitted the patient. Called Neurology consult. Patient is coughing and wheezing also. Called Pulmonary consult. PAST MEDICAL HISTORY: As above. Hypertension, COPD, renal failure, lupus, GERD, dyspepsia, history of GI ulcer. HABITS: Heavy smoking, more than i p . cigarette per day. Substance abuse, no. Alcohol abuse, no. ALLERGIES: THE PATIENT IS NOT ALLERGIC TO ANY MEDICATIONS. HOME MEDICATIONS: Reviewed by me. There is a big list of medications. Ventolin, Xanax, Symbicort, clonidine, vitamin D, Prozac, Duragesic patch, Lasix, Levaquin, Robaxin, Singulair, Cellcept, Zyprexa, Protonix, MiraLax, KCl, Lyrica, Seroquel, scopolamine, Spiriva, Actigall, Viibryd, Ambien, Medrol Dosepak. REVIEW OF SYSTEMS: Patient was seen and examined at the bedside in the ER, still coughing, shortness of breath, feeling weakness in the left upper extremity. There is a wound on the left elbow, and according to patient, she is not feeling that, having wheezing and shortness of breath. No abdominal pain. No change in bowel movement. No vision changes. No fatigue and tiredness. PHYSICAL EXAMINATION: VITAL SIGNS: Temperature 98.9, pulse 88, respiratory rate 18, blood pressure 141/90, pulse oximetry of 100. HEENT: Head: Normocephalic, atraumatic. Eyes: PERRLA. Extraocular muscles intact. Conjunctivae clear. Nose patent. Mucous membranes moist. NECK: Supple. No carotid bruits. No JVD or thyromegaly. CHEST: Bilaterally symmetrical. HEART: S1 and S2 positive. LUNGS: Clear to auscultation. ABDOMEN: Soft. Bowel sounds present. No organomegaly. EXTREMITIES: No edema. No cyanosis. NEUROLOGIC: The patient is awake and alert. Moving all four extremities. Speech normal. LABORATORY DATA: White blood cells 7.4, hemoglobin 12.3, hematocrit 38.2, platelets 244. Sodium 143, potassium 4.8, BUN 11, creatinine 1.1, glucose 81. ASSESSMENT AND PLAN: Ms. Josie Hurst is a 47-year-old lady with hyperchloremia, transient ischemic attack, paresthesia of left upper extremity and leg, chest pain with moderate risk factor for cardiac etiology, wheezing, shortness of breath, exacerbation of chronic obstructive pulmonary disease, lupus. We admitted the patient, tried to do MRI, but patient was not cooperative, patient is very claustrophobic. Then we repeated CAT scan of the head. Patient has stage III renal failure, glomerulonephritis, on CellCept. We admitted the patient, did CAT scan of the head. No acute intracranial abnormalities, paranasal sinus disease as noted above. We will give some antibiotics. Consult called with Dr. Eusebio Blackwell, Dr. Nicolle Pollack, and Dr. Nicolle Zamarripa. Restarted home medications. Gastrointestinal and deep vein thrombosis prophylaxis. Repeat labs. We will follow up. Need good physical therapy. Emelina Jordan MD [facility] # [id number] LINDA
[2017-07-15] MEDS: oxyCODONE 15 mg Immediate Release Tab PO SCH ×5 (06:05→21:50)
[2017-07-15] MEDS: Pantoprazole 40 mg EC Tab PO SCH (06:05)
[2017-07-15 07:06] LABS: IRON 25 ug/dL (45-180)
[2017-07-15 07:16] LABS: % IRON SATURATION 6 % (20-55); TOTAL IRON BINDING CAPACITY 398 ug/dL (265-497)
[2017-07-15] MEDS: Potassium Chloride 10 mEq ER Tab PO SCH (09:14)
[2017-07-15] MEDS: OLANZapine 5 mg Disintegrating Tab PO SCH (09:16)
[2017-07-15] MEDS: POLYETHYLENE GLYCOL 3350 17 GM/Dose PACKET PO SCH (09:17)
[2017-07-15] MEDS: VILAZODONE HCL 40 MG PO SCH (09:22)
--- NOTE | 2017-07-15 09:51 | RAD ---
HISTORY: shortness of breath, left arm/leg weakness COMPARISON: 01/23/2017 FINDINGS: LUNGS: No active pulmonary disease. PLEURA: No significant pleural effusion identified, no pneumothorax apparent. CARDIOVASCULAR: No radiographic findings to suggest acute or significant cardiovascular disease. Venous access catheter in stable, satisfactory position. OSSEOUS STRUCTURES: No significant abnormalities. VISUALIZED UPPER ABDOMEN: Normal. OTHER FINDINGS: None. IMPRESSION: No active disease. No significant interval change compared to the prior examination(s).
[2017-07-15] MEDS ORDERED: OLANZapine 5 mg Disintegrating Tab PO SCH (10:00)
[2017-07-15] MEDS ORDERED: METHOCARBAMOL 750 MG PO SCH (10:00)
[2017-07-15] MEDS ORDERED: Budesonide/Formoterol Fumarate [Symbicort 160-4.5 Mcg Inhaler] (HOME MED) INH SCH (10:00)
[2017-07-15 12:32] LABS: FOLATE 9.6 ng/mL
[2017-07-15] MEDS: Methocarbamol 500 MG Tab PO SCH ×3 (12:32→17:55)
--- NOTE | 2017-07-15 12:52 | CON ---
DATE: 07/15/2017 CARDIOLOGY CONSULTATION Cardiology consultation (for Dr. Alba). HISTORY OF PRESENT ILLNESS: The patient is a 47-year-old woman, who presented to the hospital after an episode of transient confusion 2 days ago. She eventually made it to the emergency room. She is not clear what happened. In addition, the patient complains of a very typical left neck pain. PAST MEDICAL HISTORY: Notable for lupus erythematosus. She complains of Raynaud's phenomenon. She also has documented COPD and she continues to smoke despite having intermittent wheezing. She is on clonidine for hypertension. She also is on chronic oxycodone. She admits to occasional shortness of breath, but no anginal symptoms. SOCIAL HISTORY: She is an active smoker and wants no discussion about considering stopping smoking. REVIEW OF SYSTEMS: Fourteen-point review of systems was reviewed in detail. No other cardiac symptoms are noted. PHYSICAL EXAMINATION: VITAL SIGNS: Blood pressure is 120/72, heart rate is 82, normal sinus rhythm. NECK: Negative JVD. LUNGS: Bilateral wheezing. HEART: Reveals S1, S2. EXTREMITIES: Without edema. The patient is obese. EKG shows no acute changes. LABORATORY DATA: Laboratories revealed one troponin is negative. IMPRESSION: 1. Atypical chest pain. 2. No evidence for acute coronary syndrome. 3. Chronic obstructive pulmonary disease with bronchospasm. 4. The patient continues to actively smoke. 5. Lupus erythematosus. 6. Transient intermittent confusion. PLAN: Given these findings, the patient wants no discussion on her need to stop smoking. We will obtain a troponin today. If negative, we will discontinue telemetry. We will obtain an echocardiogram. Ruddy Otoole MD
[2017-07-15] MEDS: Tiotropium 18 mcg Cap For Inhalation INH SCH (13:20)
--- NOTE | 2017-07-15 15:25 | CARD ---
APPROVED REPORT EKG Measurement Heart [id number] <Conclusion> Normal sinus rhythm Normal ECG
[2017-07-15] MEDS: Albuterol-Ipratrop 3 mg / 0.5 (3 ml) UD IH SCH ×2 (19:19→21:28)
[2017-07-15] MEDS: MethylPREDNISolone 40 mg Vial IVP SCH (21:51)
--- NOTE | 2017-07-16 01:10 | PN ---
DATE: 07/15/2017 SUBJECTIVE: The patient seen and examined at the bedside, looking comfortable. No nausea, vomiting or diarrhea. No hematuria, no hematochezia. No headache, no dizziness, but still having coughing and shortness of breath. Left side extremities are weak. PHYSICAL EXAMINATION: VITAL SIGNS: Blood pressure is 120/72, heart rate 82, temperature 98.6, respiratory rate 18. HEENT: Head: Normocephalic, atraumatic. Eyes: PERRLA. Extraocular muscles intact. Conjunctivae clear. Nose patent. Mucous membranes moist. NECK: Supple. No carotid bruit. No JVD or thyromegaly. CHEST: Bilaterally symmetrical. HEART: S1 and S2 positive. LUNGS: Positive wheezing bilaterally. ABDOMEN: Soft. Bowel sounds present. No organomegaly. EXTREMITIES: No edema. No cyanosis. NEUROLOGIC: Patient is awake and alert. MEDICATIONS: Actigall, Ambien, Symbicort, Catapres, CellCept, vitamin D, Duragesic patch, Lasix, Lyrica, MiraLax, oxycodone, Plaquenil, Singulair, LABORATORY DATA: White blood cells 7.4, hemoglobin 12.3, hematocrit 38.2, platelets 244. Ammonia less than 9. Troponin less than 0.01. Cholesterol 180. ASSESSMENT AND PLAN: Ms. Josie Hurst is a 47-year-old lady with multiple medical problems, iron deficiency anemia; did CAT scan of the head, plan to do MRI of the head. Had atypical chest pain, no evidence of acute coronary syndrome. Chronic obstructive pulmonary disease. The patient continues to have actively smoker, lupus erythematosus, intermittent confusion. Urged to quit smoking. Obtain troponin today as per Dr. Ruddy Otoole. If negative, we will discontinue telemetry. We will get echocardiography as per Dr. Ruddy Otoole. The patient has history of asthma, obesity, history of gastric bypass, history of stroke, was admitted in another hospital, signed against medical advice and came to [place], now we called Neurology, continue present treatment. Repeat labs. We will follow up. Emelina Jordan MD [facility] # [id number] MTDWill
[2017-07-16] MEDS: Albuterol-Ipratrop 3 mg / 0.5 (3 ml) UD IH SCH ×4 (01:32→21:20)
--- NOTE | 2017-07-16 03:58 | CON ---
DATE: 07/15/2017 REFERRING PHYSICIAN: Dr. Emelina Jordan. REASON FOR CONSULTATION: Cough, shortness of breath, chronic lung disease. HISTORY OF PRESENT ILLNES: This is a 47-year-old female well known to me from previous admission with multiple medical issue, history of gastric bypass surgery, recurrent ulcer and pain, hypertension, chronic lung disease, renal insufficiency, lupus, on immunosuppressive medication, GERD, history of opiates and benzodiazepine dependent in the past. According to the patient, she was admitted at [facility] with questionable TIA/CVA. Apparently, she fell in middle of the night from the bed on the floor. Has some skin abrasion, since then not feeling well, comes in with cough and shortness of breath with some sputum production. No hemoptysis, no hematemesis, no hematuria. No diarrhea reported. PAST MEDICAL HISTORY: As per history present illness. ALLERGIES: None known. SOCIAL HISTORY Actively smokes. Denies any alcohol use. FAMILY HISTORY: No significant cardiopulmonary disease reported. MEDICATIONS: She is on Actigall 300 mg twice a day, Ambien 12.5 mg at bedtime, was on Symbicort as outpatient, clonidine patch every 7 days, CellCept 500 mg daily, vitamin D 5000 units every 7 days, DuoNeb every 6 hours, Duragesic patch every 72 hours., potassium 10 mEq daily, Lasix 40 mg twice a day, Lyrica 200 mg three times a day, MiraLax 17 g p.o. daily, OxyContin immediate release 50 mg five times a day, Plaquenil 20 mg twice a day, Protonix 40 mg daily, Prozac 20 mg at bedtime, Robaxin 750 mg three times a day, Seroquel 20 mg twice a day and 400 mg at bedtime, Singulair 10 mg at bedtime, Solu-Medrol 40 mg twice a day, Spiriva inhaled daily, scopolamine patch every 72 hours, albuterol HFA p.r.n., also on Viibryd 40 mg daily, Xanax 2 mg three times a day p.r.n., Zyprexa 5 mg at bedtime. REVIEW OF SYSTEMS: No headache, no rhinitis. Does have a cough, sputum production. No chest pain. No nausea, no vomiting. No diarrhea. No leg pain or leg swelling. Has some skin bruises on the left upper extremity. PHYSICAL EXAMINATION GENERAL: Lying in the bed with mild cough and shortness breath. VITAL SIGNS: Temperature is 98, heart rate 90, respiratory is 20, blood pressure 126/80, pulse ox is 98% on room air. HEENT: Moist mucous membranes. Crowded airway, Mallampati score is 4. NECK: Supple. No JVD. LUNGS: Has scattered rhonchi and few wheezing. HEART: S1 and S2. ABDOMEN: Soft, nontender, no organomegaly. EXTREMITIES: No edema. NEUROLOGIC: Awake, alert, follows simple commands. LABORATORY DATA Shows hemoglobin 12.3, hematocrit 38, WBC 7.4, platelet is 244. INR 0.94, PTT 32. Sodium 142, potassium 4.8, chloride 112, bicarbonate 20, BUN 11, creatinine 1.1, glucose 81, calcium 8.8, phosphorus 2.9, magnesium 1.8. Iron is 25, AST 18, ALT 23, alk phos is 92, ammonia level less than 9. Troponin 0.01. Albumin 3.7. Cholesterol 180. TSH 1.53. Beta hCG quantitative 2.67. Has a CT scan of the head done on admission which showed no acute intracranial abnormality. Paranasal sinus disease is noted. Chest x-ray done in the ER, shows no infiltrate or effusion. IMPRESSION AND PLAN: Exacerbation of chronic obstructive lung disease, history of gastric bypass surgery in the remote past with gastric ulcers, has lupus, anxiety disorder, opiates and benzodiazepine dependent. Pulmonary point of view started on DuoNeb. Add Pulmicort and Mucomyst. Continue steroids, antibiotics. CT scan of the head does not suggest any stroke. We will get physical therapy to ambulate the patient. Fall precaution. Careful with sedation. Follow up labs in the morning. Thank you and we will follow with you. Nicolle Pollack MD
--- NOTE | 2017-07-16 05:41 | CON ---
DATE: 07/15/2017 HISTORY OF PRESENT ILLNESS: This is a 47-year-old black female with past medical history of lupus, kidney disease, and the patient is on CellCept. The patient has fell out of bed 2 weeks ago and had to get into the bed, went to hospital in [facility] and was admitted for TIA. The patient's CAT scan was negative, and could not do the MRI because of her port, and now admitted here with weakness of the left side, residual from recent stroke. PAST MEDICAL HISTORY: The patient has past medical history of COPD, hypertension, renal failure, lupus, and history of GI ulcer. SOCIAL HISTORY: The patient smokes, does not drink. ALLERGIES: NOT ALLERGIC TO ANY MEDICATIONS. PHYSICAL EXAMINATION: HEENT: Normocephalic and atraumatic. NECK: Supple. NEUROLOGIC: Awake, alert, and oriented to self and place. Cranial nerves II to XII were tested. Pupils reactive. Spontaneous movement of the extremities noted. Mild weakness on the left side and less compared to right side. Deep tendon reflexes 1+. Plantars are downgoing. Sensory appears intact. Cerebellar, gait, no dysmetria. Gait, able to ambulate with a cane. IMPRESSION: Transient ischemic attack recently, and also with multiple medical problems and the patient has chronic obstructive pulmonary disease and hypertension, renal failure, lupus and gastrointestinal ulcer. PLAN: We will do the MRI of the head with and without gadolinium, and MRI of the head without gadolinium because of kidney disease and continue physical therapy. Gene Blackwell MD
[2017-07-16] MEDS: Pantoprazole 40 mg EC Tab PO SCH (05:46)
[2017-07-16] MEDS: oxyCODONE 15 mg Immediate Release Tab PO SCH ×5 (05:46→21:38)
[2017-07-16 07:38] LABS: HEMOGLOBIN 11.8 g/dL (12.0-16.0); MEAN CELL VOLUME 80.1 fl (80.0-105.0); MEAN CORPUSCULAR HEMOGLOBIN 25.2 pg (25.0-35.0); MEAN CORPUSCULAR HGB CONC 31.5 g/dl (31.0-37.0); MEAN PLATELET VOLUME 10.3 fl (7.0-11.0); RBC 4.68 10^6/uL (3.5-6.1); RED CELL DISTRIBUTION WIDTH 15.5 % (11.5-14.5)
[2017-07-16 07:49] LABS: CALCIUM 8.8 mg/dL (8.4-10.5)
[2017-07-16] MEDS: Acetylcysteine 20% Inhal Soln (4ml) IH SCH ×3 (07:50→21:28)
[2017-07-16] MEDS: OLANZapine 5 mg Disintegrating Tab PO SCH (11:43)
[2017-07-16] MEDS: Potassium Chloride 10 mEq ER Tab PO SCH (11:43)
[2017-07-16] MEDS: Tiotropium 18 mcg Cap For Inhalation INH SCH (11:44)
[2017-07-16] MEDS: MethylPREDNISolone 40 mg Vial IVP SCH ×2 (11:45→21:37)
[2017-07-16] MEDS: cefTRIAXone 1 gm 1 GM/100 ML BAG IVPB SCH (11:45)
[2017-07-16] MEDS: Methocarbamol 500 MG Tab PO SCH ×4 (11:46→18:30)
[2017-07-16] MEDS: POLYETHYLENE GLYCOL 3350 17 GM/Dose PACKET PO SCH (11:47)
--- NOTE | 2017-07-16 18:48 | PN ---
DATE: 07/16/2017 PULMONARY PROGRESS NOTE REFERRING PHYSICIAN: Emelina Jordan MD SUBJECTIVE: The patient is sitting up in a chair, night was unremarkable, feels better, decreased cough, decreased shortness of breath. No nausea, no vomiting, no diarrhea. No leg pain or leg swelling. OBJECTIVE: GENERAL: In no acute distress. VITAL SIGNS: Temperature is 98, heart rate 104, respiratory rate is 20, blood pressure 123/92, pulse oximetry 97% on room air. HEENT: Moist mucous membrane. Crowded airway. Mallampati score is 4. NECK: Supple. No JVD. LUNGS: Scattered rhonchi, better airflow. HEART: S1 and S2. ABDOMEN: Soft, nontender. No organomegaly. EXTREMITIES: No edema. NEUROLOGIC: Awake, alert, and follows simple command. MEDICATIONS: She is on Mucomyst 20% inhaled twice a day, Actigall 300 mg twice a day, Ambien 10 mg at bedtime, clonidine patch 0.1 mg every 7 days, CellCept 500 mg daily, Colace 100 mg daily, vitamin D one capsule every 7 days, DuoNeb every 6 hours, potassium 10 mEq daily, Lasix 40 mg twice a day, Lyrica 200 mg three times a day, MiraLax 17 g daily, OxyContin immediate release 50 mg five times a day, Plaquenil 200 mg twice a day, Protonix 40 mg daily, Prozac 20 mg at bedtime, Robaxin 750 mg three times a day, Rocephin 1 g daily, Seroquel 200 mg b.i.d. and 400 mg at bedtime, Singulair 10 mg daily, Solu-Medrol 40 mg twice a day, Spiriva 1 capsule inhaled daily, scopolamine patch every 72 hours, Xanax 2 mg three times a day p.r.n., olanzapine 5 mg daily. LABORATORY DATA: Shows hemoglobin 11.8, hematocrit 37.5, WBC 8, and platelet count is 227. Sodium 146, potassium 4.3, chloride 111, bicarbonate 22. BUN 17, creatinine 1.3. Glucose 128. Calcium is 8.8. Iron is 25. Troponin less than 0.01. TSH is 0.5. IMPRESSION AND PLAN: Exacerbation of chronic obstructive lung disease, history of gastric bypass surgery, history of gastric ulcers, lupus, anxiety disorder, opiates and benzodiazepine dependent. According to CT of the head, there is no stroke. Clinically, she is improving, taper dose of steroids, antibiotics, inhaled bronchodilator. Careful with sedation. Fall precaution. Follow up labs. Thank you and we will follow with you. Nicolle Pollack MD
--- NOTE | 2017-07-16 21:58 | CON ---
DATE: 07/16/2017 HISTORY OF PRESENT ILLNESS: The patient is a 47-year-old female with schizoaffective disorder, multiple prior psychiatric hospitalization as well as suicide attempts in the past, who is currently compliant with medications prescribed by her [facility] psychiatrist Dr. Oscar Mcpherson, who was admitted to the medical floor with atypical chest pain, COPD, intermittent confusion. Psychiatry was consulted because the patient wants to make sure that medical team put her on the correct doses of her medications. Apparently the patient requested a consult for this reason. I reviewed recent notes. The patient presents as well, oriented to month, year, location and circumstances. She is calm, coherent and has a pretty good memory about her medications and knowledge why she is taking them. The patient reported she requested a psychiatric consult to make sure that she maintains her psychiatric stability as she does have a history of multiple hospitalizations in the past as well as psychosis and suicide attempts. The patient reports that she is currently doing well on her current medications of Lunesta, Seroquel, Zyprexa, and Xanax. Her last followup with Dr. Oscar Mcpherson was in June, and she plans to follow up relatively soon as she sees him every 2 months. I reviewed patient's medications with her and the patient appears to be on the correct medications as started by the medical team. The only changes were the fact that she takes Lunesta; however, the patient is aware [facility] does not have Lunesta on formulary, and she is okay with taking Ambien and Xanax as she reports that this medication is prescribed 2 mg four times a day and she is perfectly okay with taking it 2 mg t.i.d. at this time. As noted, the patient is coherent, goal directed. Responses are relevant and consistent with questioning. She is not showing any signs of perceptual disturbance, and she is not paranoid, and delusions were not elicited. Insight and judgment is considered to be fair. SOCIAL HISTORY: The patient was born and raised in [place]. She is for the last 30 years. She has 3 children, who are all adults. She lives with her and her adult daughter. She stays with her at times. The patient has been on this facility for lupus and lupus related mental and health problems since 2008. She denies any drug or alcohol history. She does report current tobacco. PSYCHIATRIC HISTORY: The patient reports that she has been hospitalized multiple times. Most recently, she believes, was in [facility]. This was a few years ago. The patient reports 4 prior suicide attempts, most recent was many years ago. She reports a history of psychosis; however, denies any current symptoms. The patient feels that a lot of her psychiatric symptoms are related to her lupus, as her aunt also had lupus and was in the mental institute for most of her life. The patient follows up with Dr. Oscar Mcpherosn, most recent followup was in 03/2017. The patient reports she has a followup with him soon. The patient reports that she takes Lunesta and she is prescribed Lunesta by Dr. Mcpherson, Seroquel 200, 200, and 400, Zyprexa 5 mg at bedtime, Prozac 20, Xanax 2 mg four times a day. Relevant psychiatric medications prescribed by the medical floor includes Xanax 2 mg p.o. t.i.d., Prozac 20 mg daily, Zyprexa 5 mg p.o. daily, and Seroquel 200 mg b.i.d. and 400 mg at bedtime, Ambien 12.5 mg. IMPRESSION: Schizoaffective disorder by history and not currently symptomatic. RECOMMENDATIONS: We will continue with current medications that patient reports that they are at the correct doses. Ambien should not be prescribed 12.5 mg p.o. at bedtime; only Ambien CR is prescribed as this dose. We will switch this dosing to 10 mg at bedtime. Psychiatry will sign off at this time . Mago Estrada MD
[2017-07-17] MEDS: Albuterol-Ipratrop 3 mg / 0.5 (3 ml) UD IH SCH ×4 (01:21→20:17)
[2017-07-17] MEDS: Pantoprazole 40 mg EC Tab PO SCH (05:29)
[2017-07-17] MEDS: oxyCODONE 15 mg Immediate Release Tab PO SCH ×5 (05:29→22:27)
--- NOTE | 2017-07-17 08:36 | PN ---
DATE: 07/16/2017 SUBJECTIVE: Patient was seen and examined at the bedside on 07/16/2017, still coughing, having shortness of breath, but little bit better. Still having weakness in the left upper extremity and also in the elbow. PHYSICAL EXAMINATION: VITAL SIGNS: Temperature 98, heart rate 104, respiratory rate 20, blood pressure 123/92, pulse oximetry 97% on room air. HEENT: Head: Normocephalic, atraumatic. Eyes: PERRLA. Extraocular muscles intact. Conjunctivae clear. Nose: Patent. Mucous membranes moist. NECK: Supple. No carotid bruits. No JVD or thyromegaly. CHEST: Bilaterally symmetrical. HEART: S1 and S2 positive. LUNGS: Clear to auscultation. ABDOMEN: Soft. Bowel sounds present. No organomegaly. EXTREMITIES: No edema. No cyanosis. NEUROLOGICAL: Patient is awake and alert. Follows simple commands. MEDICATIONS: Mucomyst, Actigall, Ambien, clonidine, Cellcept, Cepacol, vitamin D, DuoNeb, MiraLax, OxyContin, Prozac, Robaxin, Rocephin, Seroquel, Singulair, Solu-Medrol, Spiriva, scopolamine, Xanax, olanzapine. LABORATORY DATA: Hemoglobin 11.8, hematocrit 37.5, white blood cells 8, platelets 227. Sodium 143, potassium 4.3, BUN 17, creatinine 1.3, glucose 128. ASSESSMENT AND PLAN: Ms. Josie Hurst came with exacerbation of chronic obstructive lung disease, weakness, numbness in the left extremities, history of gastric bypass surgery, history of gastric ulcer, lupus, anxiety disorder, and benzodiazepine dependency. According to CAT scan of the head, there is no stroke. Clinically, she is improving. Tapering dose of steroids, antibiotics, and inhaled bronchodilators. Careful for sedation. Obesity, urged to lose weight. Dr. Pollack is on the case. Neurologist is on the case. Patient is under the care of neurologist. Gastrointestinal, deep vein thrombosis prophylaxis. Repeat labs. We will follow up. Emelina Jordan MD
[2017-07-17] MEDS: OLANZapine 5 mg Disintegrating Tab PO SCH (09:10)
[2017-07-17] MEDS: cefTRIAXone 1 gm 1 GM/100 ML BAG IVPB SCH (09:11)
[2017-07-17] MEDS: Potassium Chloride 10 mEq ER Tab PO SCH (09:11)
[2017-07-17] MEDS: POLYETHYLENE GLYCOL 3350 17 GM/Dose PACKET PO SCH (09:11)
[2017-07-17] MEDS: MethylPREDNISolone 40 mg Vial IVP SCH ×2 (09:11→22:27)
[2017-07-17] MEDS: Tiotropium 18 mcg Cap For Inhalation INH SCH (09:12)
[2017-07-17] MEDS: VILAZODONE HCL 40 MG PO SCH (09:12)
[2017-07-17] MEDS: Methocarbamol 500 MG Tab PO SCH ×3 (09:13→18:51)
[2017-07-17 09:17] LABS: BASO # 0.01 K/mm3 (0.0-2.0); BASO % 0.1 % (0.0-3.0); GRAN # 7.54 (1.4-6.5); GRAN % 78.2 % (50.0-68.0); HEMOGLOBIN 12.3 g/dL (12.0-16.0); LYMPH # 1.7 (1.2-3.4); MEAN CELL VOLUME 79.9 fl (80.0-105.0); MEAN CORPUSCULAR HEMOGLOBIN 25.5 pg (25.0-35.0); MEAN CORPUSCULAR HGB CONC 31.9 g/dl (31.0-37.0); MEAN PLATELET VOLUME 10.5 fl (7.0-11.0); MONO # 0.4 (0.1-0.6); MONO % 3.7 % (1.0-6.0); RBC 4.83 10^6/uL (3.5-6.1); RED CELL DISTRIBUTION WIDTH 15.5 % (11.5-14.5); WHITE BLOOD COUNT 9.7 10^3/ul (4.5-11.0)
[2017-07-17 09:30] LABS: ALB/GLOB RATIO 1.2 (1.1-1.8); ALBUMIN 4.4 g/dL (3.0-4.8); ALT/SGPT 15 U/L (7-56); AST/SGOT 14 U/L (14-36); BLOOD UREA NITROGEN 19 mg/dL (7-21); CALCIUM 8.8 mg/dL (8.4-10.5); GFR AFRICAN-AMERICAN 53; GFR NON-AFRICAN AMERICAN 44
--- NOTE | 2017-07-17 10:47 | CP.PCM.PCO ---
Physician Communication Note - Physician Communication Note Physician Communication Note: psychiatric team signed off
[2017-07-17] MEDS ORDERED: Sodium Chloride 0.9% 1,000 ML IV SCH ×2 (11:00→11:50)
[2017-07-17] MEDS: Acetylcysteine 20% Inhal Soln (4ml) IH SCH ×2 (13:19→20:17)
[2017-07-17] MEDS ORDERED: Magnesium Sulfate 2 GM in Sodium Chloride 0.9% 100 ML IVPB ONE (13:51)
--- NOTE | 2017-07-17 14:11 | CT ---
PROCEDURE: CT Cervical Spine without contrast HISTORY: left arm numbness/tingling COMPARISON: None available. TECHNIQUE: Axial computed tomography images were obtained of the cervical spine without the use of intravenous contrast. Coronal and sagittal reformatted images were created and reviewed. Radiation dose: Total exam DLP = 746 mGy-cm. This CT exam was performed using one or more of the following dose reduction techniques: Automated exposure control, adjustment of the mA and/or kV according to patient size, and/or use of iterative reconstruction technique. FINDINGS: VERTEBRAE: No fracture. Normal alignment. No destructive bony lesion. DISCS/SPINAL CANAL/NEURAL FORAMINA: No significant central canal or neural foraminal stenosis. Discs heights are grossly preserved. PARASPINAL SOFT TISSUES: Unremarkable. OTHER FINDINGS: None. IMPRESSION: Unremarkable CT of the cervical spine.
--- NOTE | 2017-07-17 14:21 | CT ---
PROCEDURE: CT Angiography of the neck with contrast HISTORY: left arm numbness/tingling COMPARISON: None available. TECHNIQUE: Contiguous axial images of the neck were obtained from the level of the skull-base to the superior mediastinum in the arteriographic phase of enhancement. Coronal and sagittal reformats or also generated. IV contrast dose: 150 cc of Omni 350 Radiation Dose - DLP: 725 mGy-cm This CT exam was performed using one or more of the following dose reduction techniques: Automated exposure control, adjustment of the mA and/or kV according to patient size, and/or use of iterative reconstruction technique. FINDINGS: RIGHT CAROTID ARTERIES: Common Carotid Artery: Normal. Carotid Bifurcation: Normal. Internal Carotid Artery:Normal. External Carotid Artery (proximal branches): Normal. LEFT CAROTID ARTERIES: Common Carotid Artery: Normal. Carotid Bifurcation: Normal. Internal Carotid Artery:Normal. External Carotid Artery (proximal branches): Normal. VERTEBRAL ARTERIES: Right Vertebral Artery: Normal. Left Vertebral Artery: Normal. OTHER FINDINGS: None. IMPRESSION: Normal CT Angiography of the neck. CT Angiography of the Brain. HISTORY: left arm numbness/tingling COMPARISON: None available. TECHNIQUE: CT angiography of the intracranial arteries was performed. Coronal and sagittal maximum intensity projection reformated images were generated. This CT exam was performed using one or more of the following dose reduction techniques: Automated exposure control, adjustment of the mA and/or kV according to patient size, and/or use of iterative reconstruction technique. FINDINGS: INTERNAL CEREBRAL ARTERIES: Unremarkable. The skull base, petrous, cavernous and supraclinoid segments are bilaterally widely patent. ANTERIOR CEREBRAL ARTERIES: Unremarkable. A1 and A2 segments are widely patent. Smaller distal branches unremarkable, as visualized. MIDDLE CEREBRAL ARTERIES: Unremarkable. M1 and M2 segments are widely patent. Perisylvian branches grossly symmetric. POSTERIOR CIRCULATION: Basilar Artery: Unremarkable. Distal Vertebral Arteries: Unremarkable. Posterior Cerebral Arteries: Unremarkable. Posterior Inferior Cerebellar Arteries: Unremarkable. ANEURYSM/ VASCULAR MALFORMATIONS: None. OTHER FINDINGS: None. IMPRESSION: Unremarkable CT Angiography of the Brain.
--- NOTE | 2017-07-17 16:06 | PN ---
DATE: 07/17/2017 REASON FOR CONSULTATION: Followup cardiac evaluation, history of CVA, morbid obesity, admitted with chest pain. BRIEF CLINICAL HISTORY: This is a 47-year-old female who recently admitted with CVA at [facility] 2 days after the symptoms started, so out of the window period, so t-PA was not given. Later on, the patient signed out AMA, came to Dr. Jordan's office, advised admission. The patient came through the emergency room at [facility] complaining of neck pain going to the left breast. Past history significant for SLE, hypertension, CVA, COPD. Past history significant for systemic lupus erythematosus, Raynaud's phenomena, documented COPD, morbid obesity, recently TIA or CVA, history of hypertension, history of SLE. PAST SURGICAL HISTORY: Significant for gastric bypass in 2003, history of appendectomy and history of multiple surgeries for cyst. SOCIAL HISTORY: Active tobacco abuse, half a pack a day. Denies any history of alcohol abuse. FAMILY HISTORY: Denies any history family coronary artery disease. REVIEW OF SYSTEMS: As per HPI. PHYSICAL EXAMINATION: VITAL SIGNS: Temperature afebrile, heart rate 90, blood pressure 147/74. HEENT: PERRLA. Extraocular muscles intact. NECK: Supple. No carotid bruit or thyromegaly. CHEST: Clear to auscultation. HEART: S1 and S2 regular. ABDOMEN: Soft. EXTREMITIES: Clubbing and cyanosis negative. LABORATORY DATA: Blood workup as follows; WBC 9, hemoglobin 12, hematocrit 38.6, platelet count 233. Chemistry shows sodium 142, potassium 3.8, chloride 105, carbon dioxide of 21, anion gap of 19, BUN 19, creatinine 1.3, total protein , albumin 4.2, albumin and globulin ratio 1.2. Troponin 0.01 x2 negative. IMPRESSION: No evidence of acute myocardial infarction. Chest pain, systemic lupus erythematosus, morbid obesity, recently history of transient ischemic attack, cerebrovascular accident with outside of the window. The patient did not get t-PA. Signed out from [facility]. Morbid obesity, active tobacco abuse. History of back surgery, history of appendectomy, history of gastric bypass. RECOMMENDATIONS: Multiple episodes of coronary artery disease, suggest echo and stress test. The patient agreed. We will schedule echo and stress test tomorrow. Further recommendations after the findings of initial workup, lipid profile, TSH, hemoglobin A1c. Further recommendations after the findings of initial workup and stress test. We will follow with you. We will keep n.p.o. after midnight for stress test and echo. Also get lipid profile, TSH, hemoglobin A1c. Thank you, Dr. Jordan, for providing us the opportunity in taking care of the patient, Josie Hurst. Nicolle Alba MD
[2017-07-17 17:57] VITALS: RESP 20
[2017-07-17 19:22] LABS: URINE BILIRUBIN NEGATIVE (NEGATIVE); URINE BLOOD SMALL (NEGATIVE); URINE GLUCOSE (UA) NEGATIVE (NEGATIVE); URINE LEUKOCYTE ESTERASE NEGATIVE Leu/uL (NEGATIVE); URINE PROTEIN 100 mg/dL (<30 mg/dL); URINE UROBILINOGEN 0.2 E.U./dL (<1 E.U./dL)
[2017-07-17 19:25] LABS: URINE APPEARANCE CLEAR (CLEAR); URINE COLOR YELLOW (YELLOW)
[2017-07-17 19:31] LABS: URINE BACTERIA FEW (NEG); URINE RBC 0 - 2 /hpf (0-2)
--- NOTE | 2017-07-17 19:53 | PN ---
DATE: 07/17/2017 PULMONARY PROGRESS NOTE REFERRING PHYSICIAN: Emelina Jordan MD. SUBJECTIVE: The patient is ambulating in the room. Night was unremarkable. Feels better. No headache. No rhinitis. Cough and shortness of breath is better. No nausea. No vomiting, diarrhea, leg pain, leg swelling. OBJECTIVE: GENERAL: In no acute distress. VITAL SIGNS: Temp is 98, heart rate is 90, respiratory rate is 18, blood pressure 147/74, pulse ox 99% on room air. HEENT: Moist mucous membrane. Crowded airway. Mallampati score is 4. NECK: Supple. No JVD. LUNGS: Have a prolonged expiratory phase. Some few wheezing. HEART: S1 and S2. ABDOMEN: Soft, nontender. No organomegaly. EXTREMITIES: No edema. NEUROLOGICAL: Awake and alert. Follows simple command. LABORATORY DATA: Shows hemoglobin 12.3, hematocrit 38.6, WBC 9.7, platelet is 233. Sodium 142, potassium 3.8, chloride 105, bicarbonate 21, BUN 19, creatinine 1.3, glucose is 161, AST 14, ALT 15, alk phos is 94, albumin is 4.4, TSH 0.5. She had a CTA of the head and neck done today, which is unremarkable. Also had a cervical spine CT, which is also unremarkable. The patient was seen by Dr. Valles. Psychiatry team signed off the case. MEDICATIONS: She is on Mucomyst 20% inhaled twice a day, Actigall 300 mg twice a day, Ambien 10 mg at bedtime p.r.n., Catapres 0.1 mg weekly, CellCept 500 mg daily, Colace 100 mg daily, vitamin D 50,000 units weekly, DuoNeb every 6 hours, Ecotrin 81 mg daily, potassium 10 mEq daily, Lasix 40 mg twice a day, Lipitor 10 mg daily, Lyrica 200 mg three times a day, mag oxide 400 mg daily, MiraLax 17 g daily, oxycodone 50 mg 5 times a day, Plaquenil 200 mg twice a day, Protonix 40 mg daily, Prozac 20 mg daily, Robaxin 750 mg three times a day, Rocephin 1 g IV daily, Seroquel 200 mg b.i.d., Seroquel 400 mg at bedtime, Singulair 10 mg daily, IV fluid normal saline 50 mL per hour, Solu-Medrol 40 mg every 12 hours, Spiriva 1 capsule inhaled daily. IMPRESSION AND PLAN: Chronic obstructive lung disease, history of gastric bypass surgery, history of gastric ulcer, lupus, anxiety disorder, opiates and benzodiazepine dependent. Stroke is being ruled out because the patient claims she had a stroke 2 days ago at [facility]. So far, it is all unremarkable. Does not seem like she had a stroke. Pulmonary point of view, she is doing well. Decrease Solu-Medrol to 20 mg twice a day. Urged the patient to stop smoking. May need pulmonary function test as outpatient. From the last few years, she has been gaining weight. May need to consider sleep study as outpatient to show there is no nocturnal desaturation. Thank you and we will follow with you. Nicolle Pollack MD
[2017-07-18] MEDS: Albuterol-Ipratrop 3 mg / 0.5 (3 ml) UD IH SCH ×3 (01:50→13:38)
--- NOTE | 2017-07-18 02:50 | PN ---
DATE: 07/17/2017 SUBJECTIVE: Patient was seen and examined on the bedside on 07/17/2017, looking comfortable. No nausea, vomiting, or diarrhea. No hematuria or hematochezia. No swelling of the legs. No chest pain. No palpitation. No fever. No chills. PHYSICAL EXAMINATION: VITAL SIGNS: Temperature 98, heart rate 90, respiratory rate 18, blood pressure 147/74, pulse oximetry 99% on room air. HEENT: Head: Normocephalic, atraumatic. Eyes: PERRLA. Extraocular muscles intact. Conjunctivae clear. Nose: Patent. Mucous membranes moist. NECK: Supple. No carotid bruit. No JVD or thyromegaly. CHEST: Bilaterally symmetrical. HEART: S1 and S2 positive. LUNGS: Have prolonged expiratory phase. ABDOMEN: Soft and nontender. No organomegaly. EXTREMITIES: No edema. No cyanosis. NEUROLOGIC: Patient is awake and alert. Follows simple command. LABORATORY DATA: Hemoglobin 12.3, hematocrit 38.6, white blood cells 9.7, platelets 233. Sodium 142, potassium 3.8, BUN 19, creatinine 1.3, AST 14, ALT 15. MEDICATIONS: Mucomyst, Actigall, Ambien, Catapres, CellCept, Colace, vitamin D, Ecotrin, potassium, Lasix, Lipitor, MiraLax, oxycodone. ASSESSMENT AND PLAN: Ms. Josie Hurst is a 47-year-old female with multiple medical problems, chronic obstructive lung disease, history of gastric bypass surgery long time ago, history of gastric ulcers, lupus, anxiety disorder. Dr. Reena Jacob is on the case. Opiate dependency and benzodiazepine dependency. Stroke is being ruled out because the patient claims she had stroke 2 days ago at [facility]. So far, it is all unremarkable. Does not seem like she had stroke, rule out transient ischemic attack. Decrease Solu-Medrol, getting tapering dose. Urged the patient to stop smoking. May need pulmonary function test. Waiting for neurologist's input. Gastrointestinal and deep vein thrombosis prophylaxis. Repeat labs. We will follow up. Emelina Jordan MD
[2017-07-18] MEDS: Pantoprazole 40 mg EC Tab PO SCH (05:57)
[2017-07-18] MEDS: oxyCODONE 15 mg Immediate Release Tab PO SCH ×3 (05:57→13:40)
[2017-07-18 06:47] LABS: BASO # 0.01 K/mm3 (0.0-2.0); BASO % 0.1 % (0.0-3.0); EOS % 0.1 % (1.5-5.0); GRAN # 6.04 (1.4-6.5); GRAN % 68.2 % (50.0-68.0); HEMOGLOBIN 11.3 g/dL (12.0-16.0); LYMPH # 2.1 (1.2-3.4); LYMPH % 23.2 % (22.0-35.0); MEAN CELL VOLUME 79.7 fl (80.0-105.0); MEAN CORPUSCULAR HEMOGLOBIN 25.2 pg (25.0-35.0); MEAN CORPUSCULAR HGB CONC 31.7 g/dl (31.0-37.0); MEAN PLATELET VOLUME 10.7 fl (7.0-11.0); MONO # 0.7 (0.1-0.6); MONO % 8.4 % (1.0-6.0); RBC 4.48 10^6/uL (3.5-6.1); RED CELL DISTRIBUTION WIDTH 15.7 % (11.5-14.5); WHITE BLOOD COUNT 8.9 10^3/ul (4.5-11.0)
[2017-07-18 07:43] LABS: ALB/GLOB RATIO 1.2 (1.1-1.8); ALBUMIN 3.8 g/dL (3.0-4.8); ALT/SGPT 10 U/L (7-56); AST/SGOT 17 U/L (14-36); BLOOD UREA NITROGEN 20 mg/dL (7-21); CALCIUM 8.3 mg/dL (8.4-10.5); GFR AFRICAN-AMERICAN 49; GFR NON-AFRICAN AMERICAN 40
[2017-07-18 08:23] VITALS: BP 102/53; PULSE 80; TEMP 97.8; O2SAT 100
[2017-07-18] MEDS: VILAZODONE HCL 40 MG PO SCH (09:44)
[2017-07-18] MEDS: Tiotropium 18 mcg Cap For Inhalation INH SCH (09:44)
[2017-07-18] MEDS: Potassium Chloride 10 mEq ER Tab PO SCH (09:45)
[2017-07-18] MEDS: OLANZapine 5 mg Disintegrating Tab PO SCH (09:46)
[2017-07-18] MEDS: Methocarbamol 500 MG Tab PO SCH ×2 (09:46→13:40)
[2017-07-18] MEDS: POLYETHYLENE GLYCOL 3350 17 GM/Dose PACKET PO SCH (09:47)
[2017-07-18] MEDS: MethylPREDNISolone 40 mg Vial IVP SCH (09:51)
[2017-07-18] MEDS ORDERED: Cefpodoxime (Vantin) 200 mg Tab PO SCH (10:00)
[2017-07-18] MEDS ORDERED: Magnesium Oxide 400 mg Tab UD PO SCH (10:00)
[2017-07-18] MEDS ORDERED: Potassium Chloride 20 mEq ER Tab PO ONE (10:15)
[2017-07-18] MEDS ORDERED: Aminophylline 25 mg/ml Inj ONE (11:09)
[2017-07-18] MEDS: Acetylcysteine 20% Inhal Soln (4ml) IH SCH (13:38)
--- NOTE | 2017-07-18 15:59 | PN ---
DATE: 07/18/2017 REASON FOR CONSULTATION AND FOLLOWUP: Cardiac evaluation, history of CVA, morbid obesity, admitted with chest pain. SUBJECTIVE: Patient denies any chest pain, shortness of breath, any palpitation. OBJECTIVE: GENERAL: Not in apparent distress. VITAL SIGNS: Temperature afebrile, heart rate 80, blood pressure 102/53. HEENT: PERRLA, intact. NECK: Supple. No carotid bruit or thyromegaly. CHEST: Clear to auscultation. HEART: S1 and S2, regular. ABDOMEN: Soft. EXTREMITIES: Clubbing and cyanosis negative. LABORATORY DATA: Blood workup as follows; WBC 8.9, hemoglobin 11.9, hematocrit 35.7, platelet count 255. Chemistry shows sodium 142, potassium 3.5, chloride 106, carbon dioxide of 25, anion gap of 14, BUN 20, creatinine 1.4. Troponin 0.1. IMPRESSION: Morbid obesity, diabetes, hypertension, hyperlipidemia, history of recent cerebrovascular accident, outside of the window. Went to [facility], tPA was not given because it is more than 2 days ago. History of significant systemic lupus erythematosus, hypertension and chronic obstructive pulmonary disease, active tobacco abuse. History of recent echocardiography on 01/26/2017 and prior to that, 06/2012 with normal chamber size and function, trace aortic regurgitation, moderate to trace tricuspid regurgitation. Right ventricular systolic pressure 32. Then, the patient had repeat echocardiography on 01/26/2017 five months ago; that showed normal left ventricular function, ejection fraction was within normal limits. No vegetation noted. Right ventricular systolic pressure 39. Ejection fraction was 56%. There is no mitral valve regurgitation noted and mild pulmonary regurgitation mentioned. Shortness of breath is multifactorial. Morbid obesity is an element too. History of COPD; extensive history of smoking of still a pack and a half a day. History of SLE. RECOMMENDATIONS: We will get a stress test today to rule out any ischemia. Further recommendations after the stress test. History of recent CVA, did not get the tPA because of out of the window. Supplemental electrolytes as needed. Monitor electrolytes. TSH is 0.5 and potassium is 3.5. So we will give her potassium and monitor renal function closely. We will cut down the Lasix because of worsening renal insufficiency. The patient is getting prerenal azotemic. We will keep n.p.o. for a stress test today. We will repeat the blood workup in the morning. Nicolle Alba MD
--- NOTE | 2017-07-18 18:46 | PN ---
DATE: 07/18/2017 NEUROLOGY FOLLOWUP CHIEF COMPLAINT: Followup for questionable paresthesias in the arms and legs. SUBJECTIVE: The patient is seen and examined at bedtime. She is doing much better. CT angio of the head and neck showed no evidence of any atherosclerotic plaques in terms of stroke-like features. She is walking around without any difficulty. She has multiple history of chronic carpal tunnel surgeries, on Azilect syndrome for which she will see us as an outpatient. Otherwise, no acute events overnight. PAST MEDICAL HISTORY: History of COPD, gastric bypass, gastric ulcers, lupus, history of opiate dependency in the past and benzo dependency, history of multiple carpal tunnel surgeries in the hands. REVIEW OF SYSTEMS: Fourteen-point review of systems negative except as per the HPI. FAMILY HISTORY: Noncontributory. SOCIAL HSITORY: No illicit drug use smoking or EtOH abuse. MEDICATIONS: Reviewed by nurse's reconciliation sheet. ALLERGIES: NO DOWN DRUG ALLERGIES. PHYSICAL EXAMINATION: VITAL SIGNS: Temperature 97.8, pulse rate of 80, blood pressure 120/52, respiratory rate of 20, oxygen saturation 100% by room air. GENERAL: The patient is sitting up in bed, in no acute distress. HEENT: Atraumatic, normocephalic. PERRLA. Extraocular muscles intact. NECK: Supple. No JVD. No adenopathy noted. LUNGS: Clear to auscultation. No adventitious sounds. HEART: S1, S2. Normal rate and rhythm. No murmurs, rubs or gallops. ABDOMEN: Soft, nontender and nondistended. Bowel sounds are present. EXTREMITIES: No clubbing. No cyanosis. Peripheral pulses 2+ felt bilaterally. NEUROLOGIC: She is alert and oriented to person, place, month and year. Recall after 5 minutes is 3/3. Sensory exam: Decreased light touch and pinprick up to calves bilaterally. Decreased vibration of the toes. DTRs are 2+ throughout except for 1 at both knees and ankles. Coordination: Yeyjto-ea-[id number] intact. No dysmetria noted. Gait is normal. LABORATORY DATA: Sodium is 142, potassium 3.5, chloride 106, carbon dioxide of 25, BUN of 20, creatinine 1.4, random glucose of 104. ASSESSMENT AND PLAN: This is a 47-year-old woman with past medical history of hyperchloremia, transient ischemic attack, paresthesias of left upper extremity and left leg and history of multiple carpal tunnel surgeries in bilateral hands, history of chest pain. Came in for some chest pain and some left upper extremity numbness. I was called for possible stroke-like symptoms. This was not a transient ischemic attack. CT angio of the head and neck was unremarkable for any stroke. At this time, she is clinically stable from our standpoint. We will see her as an outpatient for upper extremity compression neuropathies and recommend wearing wrist splints at night to avoid further worsening. Also recommended to take aspirin and Lipitor for stroke prevention and continue with current present medical management. Thank you for this followup. Eusebio Blackwell MD
--- NOTE | 2017-07-18 22:34 | CARD ---
APPROVED REPORT Protocol: LEXISCAN Test Type: Lexiscan Sestamibi Stress Test Attending Physician: Dr. Nicolle Alba Referring Physician: Dr. Emelina Jordan Test Indications: Chest Pain Height:5 ft 3 in Weight:240lbs Medications: Duoneb,Xanax,Ecotrin,Lipitor, Rocephin,Catapres, Colace,Prozac, Lasix, Plaquenil,Robaxin,Solu-Medrol Medical History: 47 y/o female. Hx of COPD, hypertension,high cholesterol,CHF, DVT,hypothyroid,Lupus, Gerd,Ulcer,Gastric bypass, renal failure,arthritis,herniated disks. Target HR: 174 bpm Resting ECG: normal Resting Heart Rate: 75 bpm Resting Blood Pressure: 120/80mmHg Submaximum (85%): 148 bpm PROCEDURE Pharmacologic stress testing was performed using 0.4mg per 5ml of regadenoson given intravenously over 7-10 seconds. Reversal agent aminophyline 100 mg, given intravenously for Other. POST EXERCISE Reason for Termination: Protocol completed Target HR: No Max HR: 82 bpm 50% of Maximum Predicted HR: 174 bpm Exercise duration: 02:45 min:sec, 0 Stage Exercise capacity: 1.0METs Max Blood Pressure: 120/80mmHg Blood Pressure response to exercise: normal resting BP - appropriate response Heart Rate response to exercise: appropriate Chest Pain: No, none Angina index: 0 Arrhythmia: No, none ST Change: No, none Deviation: 0 mm INTERPRETATION Stress EKG Conclusion: Negative IV Lexiscan for chest pain and for ischemia, Nuclear scan to follow. Signed by Nicolle Alba Electronically Approved: 07/18/2017 11:55:39 EXAM: Myocardial Perfusion REST/STRESS Stress Test Type: Pharmacologic Imaging Protocol Rest Spect myocardial perfusion imaging was performed in supine position 50 minutes following the injection of 10.3 mCi of Tc-99 Myoview. At peak stress, the patient was injected intravenously with 30.5mCi of Tc-99 tetrofosmin after an infusion time of 0 minutes and 10 seconds. Gated Stress Spect was performed 65 minutes after intravenous Tc-99 Myoview injection. The images were gated to evaluate regional wall motion and calculate ventricular ejection fraction.Images were reconstructed using backfilter projection method in short horizontal and verticle long axis. Spect slices were generated. LV Perfusion The quality of the study is suboptimal due to motion during the stress acquisitoni. The left ventricle is within normal lmiits in size. The right ventricle is unremarkable. The lung uptake is normal. The distribution of tracer reveals a small area of moderately decreased perfusion in the apical wall on the stress study. The remainder of the LV myocardium is unremarkable. The rest myocardial perfusion study shows improvement of apical defect. Wall Motion Wall motion study shows good contractility of the left ventricle. LVEF = 78%. Conclusion 1. Technically suboptimal study. 2. The study is unreadable due to motion during the acquisiton. 3. Reversible, apical defect is probably related to motion artifact rathe rthan ischemia. 4. Normal gated wall motion and thickening of the left ventricle. 5. Repeat study is suggested.
== END 2017-07-18 16:44 | disposition home or self-care (01) | DRG 191 ==
LOC: ED 15:29 → ERH 18:25 → 2RNO 21:46 → 3RNO 07-16 16:49 → 3RSO 07-16 18:54
PROVIDERS: ADMIT Internal Medicine; ATTEND Internal Medicine
DX: J44.1 Chronic obstructive pulmonary disease with (acute) exacerbation (principal); F13.20 Sedative, hypnotic or anxiolytic dependence, uncomplicated; Z68.41 Body mass index [BMI] 40.0-44.9, adult; I12.9 Hypertensive chronic kidney disease with stage 1 through stage 4 chronic kidney disease, or unspecified chronic kidney disease; E11.22 Type 2 diabetes mellitus with diabetic chronic kidney disease; N18.3 Chronic kidney disease, stage 3 (moderate); M32.9 Systemic lupus erythematosus, unspecified; D50.9 Iron deficiency anemia, unspecified; E66.01 Morbid (severe) obesity due to excess calories; K21.9 Gastro-esophageal reflux disease without esophagitis; F17.210 Nicotine dependence, cigarettes, uncomplicated; E78.5 Hyperlipidemia, unspecified; R07.89 Other chest pain; F41.9 Anxiety disorder, unspecified; F25.9 Schizoaffective disorder, unspecified; I73.00 Raynaud's syndrome without gangrene; I08.2 Rheumatic disorders of both aortic and tricuspid valves; E87.8 Other disorders of electrolyte and fluid balance, not elsewhere classified; Z87.11 Personal history of peptic ulcer disease; Z79.899 Other long term (current) drug therapy; Z86.73 Personal history of transient ischemic attack (TIA), and cerebral infarction without residual deficits; Z98.84 Bariatric surgery status

== ENCOUNTER 2017-11-30 11:43 | Emergency (ER) | payer MEDICARE, MEDICAID ==
[2017-11-30 11:44] VITALS: BMI 42.5
[2017-11-30 12:02] VITALS: TEMP 98.7; O2SAT 100
[2017-11-30] MEDS ORDERED: Sodium Chloride 0.9% 1,000 ML IV STA (12:24)
--- NOTE | 2017-11-30 12:32 | ED PDOC ---
Arrival/HPI <Saulo Jean - Last Filed: 11/30/17 15:42> - General Historian: Patient - History of Present Illness Narrative History of Present Illness (Text): 11/30/17 12:21 47 yo morbidly obese F with PMHx of multiple comorbidities including COPD, HTN, recurrent gastric ulcers, GERD, gastric bypass, SLE, chronic renal failure, glomerulonephritis, DVT w/ IVC filter, anxiety, depression, hx of benzo dependence presenting to ED with 2 day history of nausea/vomiting. Patient states she has had ~12 episodes of nonbilious, nonbloody vomiting within the past day. Patient states she went to [facility] yesterday, was given zofran and protonix which did not help. No other acute complaints at this time. Denies fevers/chills, headaches, dizziness, chest pain, palpitations, sob, cough, diarrhea/constipation, dysuria, or changes in stool. PMHx: COPD, gastric bypass, recurrent gastric ulcers, GERD, SLE, CKD, glomerulonephritis, HTN, DVT with IVC filter, spinal stenosis, anxiety, depression, benzo dependence PSHx: gastric bypass Allergies: NKDA Home medications: as per chart Social Hx: heavy smoker, denies alcohol or drug use. Lives at home with . FHx: non-contributory PMD: Dr. Jordan Time/Duration: < week Symptom Onset: Gradual Symptom Course: Unchanged Quality: Cramping Activities at Onset: Light <Regan Sadler - Last Filed: 11/30/17 17:52> - General Chief Complaint: Pain, Chronic Time Seen by Provider: 11/30/17 11:44 Past Medical History - Provider Review Nursing Documentation Reviewed: Yes - Past History Past History: No Previous - Infectious Disease Hx of Infectious Diseases: None - Tetanus Immunization Tetanus Immunization: Up to Date - Cardiac Hx Cardiac Disorders: Yes Hx Hypertension: Yes - Pulmonary Hx Respiratory Disorders: Yes Hx Chronic Obstructive Pulmonary Disease (COPD): Yes - Neurological Hx Neurological Disorder: Yes Hx Migraine: Yes Hx Transient Ischemic Attacks (TIA): Yes - HEENT Hx HEENT Disorder: No - Renal Hx Renal Disorder: Yes Hx Renal Failure: Yes - Endocrine/Metabolic Hx Endocrine Disorders: Yes Hx Systemic Lupus Erythematosus: Yes - Hematological/Oncological Hx Blood Disorders: Yes Hx Anemia: Yes - Integumentary Hx Dermatological Disorder: No - Musculoskeletal/Rheumatological Hx Musculoskeletal Disorders: Yes Hx Back Pain: Yes - Gastrointestinal Hx Gastrointestinal Disorders: Yes (hx GERD, GI ulcers) Hx Gastroesophageal Reflux: Yes - Genitourinary/Gynecological Hx Genitourinary Disorders: No - Psychiatric Hx Psychophysiologic Disorder: Yes Hx Anxiety: Yes Hx Depression: Yes Hx Substance Use: No - Surgical History Hx Tubal Ligation: Yes Other/Comment: PORT, IVC FILTER - Anesthesia Hx Anesthesia Reactions: No Hx Malignant Hyperthermia: No - Suicidal Assessment Feels Threatened In Home Enviroment: No <Regan Sadler - Last Filed: 11/30/17 17:52> Family/Social History - Physician Review Nursing Documentation Reviewed: Yes Family/Social History: Unknown Family HX Smoking Status: Heavy Smoker > 10 Cigarettes Daily Hx Alcohol Use: No Hx Substance Use: No Hx Substance Use Treatment: No <Regan Sadler - Last Filed: 11/30/17 17:52> Allergies/Home Meds <Saulo Jean - Last Filed: 11/30/17 15:42> <Regan Sadler - Last Filed: 11/30/17 17:52> Allergies/Adverse Reactions: Allergies No Known Allergies Allergy (Verified 11/30/17 11:46) per patient Home Medications: Home Meds Medication Instructions Recorded Confirmed Albuterol HFA [Ventolin HFA 90 1 inh INH PRN PRN 04/07/17 11/30/17 mcg/actuation (8 g)] Alprazolam [Xanax] 2 mg PO TID 04/07/17 11/30/17 Budesonide/Formoterol Fumarate 2 puff INH DAILY 04/07/17 11/30/17 [Symbicort 160-4.5 Mcg Inhaler] Clonidine [Catapres-Tts 1] 0.2 mg TOP Q7D 04/07/17 11/30/17 Ergocalciferol (Vitamin D2) 50,000 units PO Q7D 04/07/17 11/30/17 [Vitamin D2] Fentanyl [Duragesic Patch] 150 mcg TOP Q72H 04/07/17 11/30/17 Mycophenolate Mofetil [Cellcept] 500 mg PO BID 04/07/17 11/30/17 Pantoprazole [Protonix EC Tab] 40 mg PO DAILY 04/07/17 11/30/17 Polyethylene Glycol 3350 [Miralax] 17 gm PO DAILY 04/07/17 11/30/17 Potassium Chloride [Klor-Con 10] 10 meq PO DAILY 04/07/17 11/30/17 QUEtiapine [SEROquel] 400 mg PO HS 04/07/17 11/30/17 Scopolamine [Transderm-Scop] 1 applic TOP Q72H 04/07/17 11/30/17 Tiotropium [Spiriva] 2 puff INH BID 04/07/17 11/30/17 Ursodiol [Actigall] 300 mg PO BID 04/07/17 11/30/17 Vilazodone HCl [Viibryd] 40 mg PO DAILY 04/07/17 11/30/17 oxyCODONE [oxyCODONE Immediate 15 mg PO 5XD 04/07/17 11/30/17 Release Tab] Doc-Q-Lac 100 mg pe PO PRN PRN 07/14/17 11/30/17 Fluticasone/Salmeterol 250/50 1 puff NEB BID 11/30/17 11/30/17 [Advair Diskus 250/50] Review of Systems - Review of Systems Constitutional: Normal Eyes: Normal ENT: Normal Respiratory: Normal Cardiovascular: Normal Gastrointestinal: Normal, Nausea, Vomiting Genitourinary Female: Normal Musculoskeletal: Arthralgias (chronic), Back Pain (chronic) Skin: Normal Neurological: Normal Endocrine: Normal Hemo/Lymphatic: Normal Psychiatric: Anxiety, Depression <Regan Sadler - Last Filed: 11/30/17 17:52> Physical Exam Vital Signs Temp Pulse Resp BP Pulse Ox 11/30/17 11:51 98.7 F 92 H 17 176/126 H 100 <Saulo Jean - Last Filed: 11/30/17 15:42> Vital Signs Reviewed: Yes Vital Signs Temp Pulse Resp BP Pulse Ox 11/30/17 11:51 98.7 F 92 H 17 176/126 H 100 Temperature: Afebrile Blood Pressure: Hypertensive Pulse: Tachycardic Respiratory Rate: Normal Appearance: Positive for: Non-Toxic, Comfortable Pain Distress: Mild Mental Status: Positive for: Alert and Oriented X 3 - Systems Exam Head: Present: Atraumatic, Normocephalic Pupils: Present: PERRL Extroacular Muscles: Present: EOMI Conjunctiva: Present: Normal Mouth: Present: Moist Mucous Membranes Neck: Present: Normal Range of Motion Respiratory/Chest: Present: Wheezes. No: Respiratory Distress, Accessory Muscle Use, Rales, Rhonchi Cardiovascular: Present: Regular Rate and Rhythm, Normal S1, S2 Abdomen: Present: Normal Bowel Sounds, Other (well nourished/obese female, no focal tenderness, no kwon's sign, no mcburney's point tenderness, no masses/rebound/guarding/rigidity). No: Tenderness, Distention, Rebound, Guarding, Mass/Organomegaly Back: Present: Normal Inspection Upper Extremity: Present: Normal Inspection, Normal ROM, NORMAL PULSES, Capillary Refill < 2s. No: Cyanosis, Edema, Tenderness, Swelling Lower Extremity: Present: Normal Inspection, NORMAL PULSES, Normal ROM, Capillary Refill < 2 s. No: Edema, CALF TENDERNESS, Tenderness, Swelling Neurological: Present: CN II-XII Intact, Speech Normal Skin: Present: Warm, Dry, Normal Color Psychiatric: Present: Alert, Oriented x 3, Normal Insight, Normal Concentration <Regan Sadler - Last Filed: 11/30/17 17:52> Medical Decision Making ED Course and Treatment: 11/30/17 12:42 47 year old female presents to the Emergency department complaining of nausea and vomiting since 2 days. In agreement with resident note, which includes further HPI details. Patient was seen and evaluated with resident, came up with plan and treatment together. - Lab Interpretations Lab Results: Lab Results 11/30/17 14:14: Urine Color Yellow, Urine Appearance Clear, Urine pH 6.0, Ur Specific [place] >= 1.030, Urine Protein >=300 H, Urine Glucose (UA) Negative, Urine Ketones Negative, Urine Blood Small H, Urine Nitrate Negative, Urine Bilirubin Negative, Urine Urobilinogen 1.0 H, Ur Leukocyte Esterase Negative, Urine RBC 5 - 10, Urine WBC 0 - 2, Ur Epithelial Cells 4 - 5, Urine Bacteria Many, Fine Granular Casts 0 - 2, Coarse Granular Casts Trace H, Urine Other Uyeast, Urine HCG, Qual Negative - RAD Interpretation Radiology Orders: 11/30/17 12:24 CHEST PORTABLE [RAD] Stat - Medication Orders Current Medication Orders: Discontinued Medications Sodium Chloride (Sodium Chloride 0.9%) 1,000 mls @ 1,000 mls/hr IV .Q1H STA Stop: 11/30/17 13:23 Last Admin: 11/30/17 13:28 Dose: 1,000 mls/hr eMAR Start Stop Document 11/30/17 13:28 GMD (Rec: 11/30/17 13:28 GMD [id number]) Intravenous Solution Start Date 11/30/17 Start Time 13:28 End Date 11/30/17 End time 14:28 Total Infusion Time 60 Ketorolac Tromethamine (Toradol) 30 mg IVP STAT STA Stop: 11/30/17 12:25 Last Admin: 11/30/17 13:28 Dose: 30 mg MAR Pain Assessment Document 11/30/17 13:28 GMD (Rec: 11/30/17 13:29 GMD [id number]) Pain Reassessment Is this a pain reassessment? No IVP Administration Document 11/30/17 13:28 GMD (Rec: 11/30/17 13:29 GMD [id number]) Charges for Administration # of IVP Administrations 1 Methylprednisolone (Solu-Medrol) 125 mg IVP STAT STA Stop: 11/30/17 12:26 Last Admin: 11/30/17 13:29 Dose: 125 mg IVP Administration Document 11/30/17 13:29 GMD (Rec: 11/30/17 13:29 GMD [id number]) Charges for Administration # of IVP Administrations 1 Ondansetron HCl (Zofran Inj) 4 mg IVP STAT STA Stop: 11/30/17 12:25 Last Admin: 11/30/17 13:28 Dose: 4 mg IVP Administration Document 11/30/17 13:28 GMD (Rec: 11/30/17 13:28 D [id number]) Charges for Administration # of IVP Administrations 1 <Saulo Jean - Last Filed: 11/30/17 15:42> ED Course and Treatment: 11/30/17 12:39 Impression: 47 yo morbidly obese F with PMHx of multiple comorbidities presenting to ED with nausea/vomiting x 2 days. Plan: --CBC, CMP --PT/PTT --Lipase --Toradol 30 mg IVP x1 --Methylprednisolone 125 mg IVP x1 --Zofran 4 mg IVP x1 --IVF --CXR --UA --UHCG --monitor and disposition 11/30/17 17:49 Patient very intrusive, agitated. Continues to request narcotic medications as she waits for CT scan in order to "be less angsty". Dr. Jean discussed giving non-narcotic medications for pain relief which patient refused. She states she refuses to wait any longer and wishes to leave. Patient was told the risks of leaving against medical advice. She has the mental capacity to make an informed decision, wishes to leave. Patient refused to sign AMA form before leaving. <Regan Sadler - Last Filed: 11/30/17 17:52> - PA / CYLINDER GRINDER / Resident Statement /DO has reviewed & agrees with the documentation as recorded. MD/DO has examined the patient and agrees with the treatment plan. - Scribe Statement The provider has reviewed the documentation as recorded by the Scribe Kendell Salter. Provider Scribe Attestation: All medical record entries made by the Scribe were at my direction and personally dictated by me. I have reviewed the chart and agree that the record accurately reflects my personal performance of the history, physical exam, medical decision making, and the department course for this patient. I have also personally directed, reviewed, and agree with the discharge instructions and disposition. <Saulo Jean - Last Filed: 11/30/17 15:42> Disposition/Present on Arrival <Saulo Jean - Last Filed: 11/30/17 15:42> - Present on Arrival Any Indicators Present on Arrival: No History of DVT/PE: No History of Uncontrolled Diabetes: No Urinary Catheter: No History of Decub. Ulcer: No History Surgical Site Infection Following: None - Disposition Have Diagnosis and Disposition been Completed?: Yes Disposition Time: 17:49 <Regan Sadler - Last Filed: 11/30/17 17:52> - Disposition Diagnosis: Left against medical advice, Chronic pain, Body aches, Nausea & vomiting Disposition: AGAINST MEDICAL ADVICE Patient Problems: Current Active Problems Problem Status Onset Body aches Acute Left against medical advice Acute Nausea & vomiting Acute Chronic pain Chronic Condition: UNKNOWN Discharge Instructions (ExitCare): Acute Abdomen (Belly Pain), Adult (DC), Nausea and Vomiting, Adult (DC), Leaving Against Medical Advice Additional Instructions: return to er with worsening symptoms or concerns Forms: [employer] (Mac[place])
[2017-11-30 14:25] LABS: URINE BILIRUBIN NEGATIVE (NEGATIVE); URINE BLOOD SMALL (NEGATIVE); URINE GLUCOSE (UA) NEGATIVE (NEGATIVE); URINE LEUKOCYTE ESTERASE NEGATIVE Leu/uL (NEGATIVE); URINE PROTEIN >=300 mg/dL (<30 mg/dL)
[2017-11-30 14:29] LABS: URINE APPEARANCE CLEAR (CLEAR); URINE COLOR YELLOW (YELLOW)
[2017-11-30 14:30] LABS: HCG,QUALITATIVE URINE NEGATIVE (NEGATIVE)
[2017-11-30 14:35] LABS: URINE BACTERIA MANY (NEG); URINE WBC 0 - 2 /hpf (0-6)
[2017-11-30 14:37] LABS: URINE FINE GRANULAR CAST 0 - 2 /hpf (0-2)
[2017-11-30 14:38] LABS: URINE COARSE GRANULAR CAST TRACE /hpf (0-2)
--- NOTE | 2017-11-30 14:53 | RAD ---
Date of service: 11/30/2017 HISTORY: Abdominal pain COMPARISON: 07/14/2017. FINDINGS: The right MediPort terminates at the cavoatrial junction. LUNGS: The lungs are well inflated and clear. PLEURA: No significant pleural effusion identified, no pneumothorax apparent. CARDIOVASCULAR: Normal. OSSEOUS STRUCTURES: No significant abnormalities. VISUALIZED UPPER ABDOMEN: Normal. OTHER FINDINGS: None. IMPRESSION: No active pulmonary disease.
[2017-11-30 15:50] LABS: BASO # 0.01 K/mm3 (0.0-2.0); BASO % 0.1 % (0.0-3.0); GRAN # 5.67 (1.4-6.5); GRAN % 82.5 % (50.0-68.0); HEMOGLOBIN 12.9 g/dL (12.0-16.0); LYMPH # 1.1 (1.2-3.4); LYMPH % 15.9 % (22.0-35.0); MEAN CELL VOLUME 79.6 fl (80.0-105.0); MEAN CORPUSCULAR HEMOGLOBIN 26.1 pg (25.0-35.0); MEAN CORPUSCULAR HGB CONC 32.8 g/dl (31.0-37.0); MEAN PLATELET VOLUME 10.5 fl (7.0-11.0); MONO # 0.1 (0.1-0.6); MONO % 1.5 % (1.0-6.0); RBC 4.94 10^6/uL (3.5-6.1); RED CELL DISTRIBUTION WIDTH 14.6 % (11.5-14.5); WHITE BLOOD COUNT 6.9 10^3/ul (4.5-11.0)
[2017-11-30 15:55] LABS: INR 0.96; PARTIAL THROMBOPLASTIN TIME 30.3 Seconds (25.1-36.5); PROTHROMBIN TIME 10.9 SECONDS (9.4-12.5)
[2017-11-30 15:57] LABS: ALB/GLOB RATIO 1.1 (1.1-1.8); ALBUMIN 4.1 g/dL (3.0-4.8); CALCIUM 9.4 mg/dL (8.4-10.5)
[2017-11-30 17:54] VITALS: BP 124/76; PULSE 78; RESP 18
== END 2017-11-30 17:58 | disposition left against medical advice (07) ==
LOC: ED 11:43
DX: R11.2 Nausea with vomiting, unspecified (principal); G89.29 Other chronic pain; F17.210 Nicotine dependence, cigarettes, uncomplicated; E66.01 Morbid (severe) obesity due to excess calories; J44.9 Chronic obstructive pulmonary disease, unspecified; I12.9 Hypertensive chronic kidney disease with stage 1 through stage 4 chronic kidney disease, or unspecified chronic kidney disease; N18.9 Chronic kidney disease, unspecified; M32.9 Systemic lupus erythematosus, unspecified
CPT/HCPCS: 71045; 80053; 81001; 83690; 83735; 84703; 85025; 85610; 85730; 96361; 96374; 96375; 99283; J1885; J2405; J2930; J7030

== ENCOUNTER 2018-01-09 15:40 | Emergency (ER) | payer MEDICARE, MEDICAID ==
[2018-01-09 15:59] VITALS: BMI 47.0
--- NOTE | 2018-01-09 16:00 | ED PDOC ---
Arrival/HPI - General Chief Complaint: Lower Extremity Problem/Injury Time Seen by Provider: 01/09/18 15:43 Historian: Patient, Family - History of Present Illness Time/Duration: > month Symptom Onset: Gradual Symptom Course: Unchanged Quality: Aching Severity Level: Moderate Associated Symptoms (Text): 01/09/18 15:57 Patient complains of approximately one month history of left greater than right lower extremity swelling and pain. She also has a cough congestion and wheezing and shortness of breath. She has had 2 courses of steroids and 2 courses of antibiotics with no improvement. She has a prescription from her PMD dated December 04 for venous Dopplers to rule out DVT. Patient is concerned that she has a pulmonary embolus as she has a history of pulmonary emboli. She is currently on no blood thinners. She is morbidly obese and continues to smoke. Past Medical History - Past History Past History: No Previous - Infectious Disease Hx of Infectious Diseases: None - Tetanus Immunization Tetanus Immunization: Up to Date - Cardiac Hx Cardiac Disorders: No - Pulmonary Hx Respiratory Disorders: Yes Hx Chronic Obstructive Pulmonary Disease (COPD): Yes - Neurological Hx Neurological Disorder: No Hx Migraine: Yes (on fioricet) Hx Transient Ischemic Attacks (TIA): No - HEENT Hx HEENT Disorder: No - Renal Hx Renal Disorder: Yes Hx Renal Failure: Yes - Endocrine/Metabolic Hx Endocrine Disorders: Yes Hx Systemic Lupus Erythematosus: Yes - Hematological/Oncological Hx Blood Disorders: Yes Hx Anemia: Yes - Integumentary Hx Dermatological Disorder: No - Musculoskeletal/Rheumatological Hx Musculoskeletal Disorders: Yes Hx Back Pain: Yes - Gastrointestinal Hx Gastrointestinal Disorders: Yes (hx GERD, GI ulcers) Hx Gastroesophageal Reflux: Yes - Genitourinary/Gynecological Hx Genitourinary Disorders: No - Psychiatric Hx Psychophysiologic Disorder: Yes Hx Anxiety: Yes Hx Depression: Yes Hx Substance Use: No - Surgical History Other/Comment: R chest port - Anesthesia Hx Anesthesia Reactions: No Hx Malignant Hyperthermia: No - Suicidal Assessment Feels Threatened In Home Enviroment: No Family/Social History - Physician Review Nursing Documentation Reviewed: Yes Family/Social History: Unknown Family HX Smoking Status: Heavy Smoker > 10 Cigarettes Daily Hx Alcohol Use: No Hx Substance Use: No Hx Substance Use Treatment: No Allergies/Home Meds Allergies/Adverse Reactions: Allergies No Known Allergies Allergy (Verified 01/09/18 15:59) per patient Home Medications: Home Meds Medication Instructions Recorded Confirmed Albuterol HFA [Ventolin HFA 90 1 inh INH PRN PRN 04/07/17 01/09/18 mcg/actuation (8 g)] Alprazolam [Xanax] 2 mg PO TID 04/07/17 01/09/18 Budesonide/Formoterol Fumarate 2 puff INH DAILY 04/07/17 01/09/18 [Symbicort 160-4.5 Mcg Inhaler] Clonidine [Catapres-Tts 1] 0.2 mg TOP Q7D 04/07/17 01/09/18 Ergocalciferol (Vitamin D2) 50,000 units PO Q7D 04/07/17 01/09/18 [Vitamin D2] Fentanyl [Duragesic Patch] 150 mcg TOP Q72H 04/07/17 01/09/18 Mycophenolate Mofetil [Cellcept] 500 mg PO BID 04/07/17 01/09/18 Pantoprazole [Protonix EC Tab] 40 mg PO DAILY 04/07/17 01/09/18 Polyethylene Glycol 3350 [Miralax] 17 gm PO DAILY 04/07/17 01/09/18 Potassium Chloride [Klor-Con 10] 10 meq PO DAILY 04/07/17 01/09/18 QUEtiapine [SEROquel] 400 mg PO HS 04/07/17 01/09/18 Scopolamine [Transderm-Scop] 1 applic TOP Q72H 04/07/17 01/09/18 Tiotropium [Spiriva] 2 puff INH BID 04/07/17 01/09/18 Ursodiol [Actigall] 300 mg PO BID 04/07/17 01/09/18 Vilazodone HCl [Viibryd] 40 mg PO DAILY 04/07/17 01/09/18 oxyCODONE [oxyCODONE Immediate 15 mg PO 5XD 04/07/17 01/09/18 Release Tab] Doc-Q-Lac 100 mg pe PO PRN PRN 07/14/17 01/09/18 Fluticasone/Salmeterol 250/50 1 puff NEB BID 11/30/17 01/09/18 [Advair Diskus 250/50] Review of Systems - Physician Review All systems were reviewed & negative as marked: Yes - Review of Systems Constitutional: absent: Fatigue, Fevers Respiratory: SOB, Cough, Sputum, Wheezing Cardiovascular: absent: Chest Pain, Palpitations, Syncope Gastrointestinal: absent: Abdominal Pain, Diarrhea, Nausea, Vomiting Musculoskeletal: absent: Back Pain, Neck Pain Neurological: absent: Headache, Dizziness, Focal Weakness Physical Exam Temperature: Afebrile Blood Pressure: Normal Pulse: Regular Respiratory Rate: Normal Appearance: Positive for: Well-Appearing, Non-Toxic, Comfortable, Other (morbidly obese) Pain Distress: None Mental Status: Positive for: Alert and Oriented X 3 - Systems Exam Head: Present: Atraumatic, Normocephalic Pupils: Present: PERRL Extroacular Muscles: Present: EOMI Conjunctiva: Present: Normal Mouth: Present: Moist Mucous Membranes Pharnyx: No: ERYTHEMA, EXUDATE, TONSILS ENLARGED Neck: Present: Normal Range of Motion Respiratory/Chest: Present: Wheezes, Decreased Breath Sounds, Rhonchi. No: Respiratory Distress, Accessory Muscle Use, Rales, Retracting, Tachypneic, Tender to Palpation Cardiovascular: Present: Regular Rate and Rhythm, Normal S1, S2. No: Murmurs Abdomen: No: Tenderness, Distention, Peritoneal Signs, Rebound, Guarding Upper Extremity: Present: Normal Inspection. No: Cyanosis, Edema Lower Extremity: Present: Edema (left greater than right lower extremity edema) Neurological: Present: GCS=15, CN II-XII Intact, Speech Normal, Motor Func Grossly Intact Skin: Present: Warm, Dry, Normal Color. No: Rashes Psychiatric: Present: Alert, Oriented x 3, Normal Insight, Normal Concentration Medical Decision Making ED Course and Treatment: 01/09/18 18:33 Patient reports she is feeling much better post treatment. She has a nebulizer at home, but has run out of her DuoNeb. She does have her Symbicort at home. She needs prednisone. She reports that her blood pressure is always elevated and never under control. She does not want treatment for her blood pressure. I discussed smoking cessation with the patient. She will follow-up with PMD tomorrow. Follow up in ER as needed. 01/09/18 18:35 Extremity US reviewed, shows: IMPRESSION: No sonographic evidence for deep venous thrombosis in the visualized segments of both lower extremities. Chest X-ray: IMPRESSION: No active disease. No significant interval change compared to the prior examination(s). 01/09/18 18:43 EKG shows normal sinus rhythm rate approximately 95 with poor R-wave progression LVH and no acute ST or T-wave changes. - RAD Interpretation Radiology Orders: Bilateral lower extremity venous Doppler is read by the radiologist as negative for DVT. Chest one view as read by the radiologist shows no infiltrate effusion or cardiomegaly. Plant Taxonomy Teacher: Radiologist Disposition/Present on Arrival - Present on Arrival Any Indicators Present on Arrival: No History of DVT/PE: No History of Uncontrolled Diabetes: No Urinary Catheter: No History of Decub. Ulcer: No History Surgical Site Infection Following: None - Disposition Have Diagnosis and Disposition been Completed?: Yes Diagnosis: COPD (chronic obstructive pulmonary disease), Dyspnea, Pedal edema, Hy pertension Disposition: HOME/ ROUTINE Disposition Time: 18:37 Patient Plan: Discharge Patient Problems: Current Active Problems Problem Status Onset Dyspnea Acute Hypertension Acute Pedal edema Acute COPD (chronic obstructive pulmonary disease) Chronic Condition: IMPROVED Discharge Instructions (ExitCare): Chronic Obstructive Pulmonary Disease (COPD), Including Emphysema, High Blood Pressure in Adults, Dependent Edema (DC), Exacerbation of COPD (DC) Additional Instructions: Follow-up with . Follow up in ER as needed Prescriptions: Albuterol/Ipratropium [Duoneb 3 MG/3 Ml-0.5 MG/3 Ml 3 Ml] 3 ml IH Q6 #60 neb predniSONE [predniSONE Tab] 20 mg PO DAILY #10 tab Forms: [employer] (Irish)
[2018-01-09] MEDS ORDERED: Albuterol-Ipratrop 3 mg / 0.5 (3 ml) UD IH STA (16:01)
[2018-01-09 16:33] VITALS: TEMP 98.5
[2018-01-09 17:20] LABS: BASO # 0.03 K/mm3 (0.0-2.0); BASO % 0.4 % (0.0-3.0); EOS # 0.5 (0.0-0.7); EOS % 6.3 % (1.5-5.0); GRAN # 4.28 (1.4-6.5); GRAN % 55.4 % (50.0-68.0); HEMOGLOBIN 11.4 g/dL (12.0-16.0); LYMPH # 2.3 (1.2-3.4); LYMPH % 29.8 % (22.0-35.0); MEAN CORPUSCULAR HEMOGLOBIN 25.5 pg (25.0-35.0); MEAN CORPUSCULAR HGB CONC 31.5 g/dl (31.0-37.0); MEAN PLATELET VOLUME 10.2 fl (7.0-11.0); MONO # 0.6 (0.1-0.6); MONO % 8.1 % (1.0-6.0); RBC 4.47 10^6/uL (3.5-6.1); RED CELL DISTRIBUTION WIDTH 16.1 % (11.5-14.5); WHITE BLOOD COUNT 7.7 10^3/uL (4.5-11.0)
[2018-01-09 17:27] LABS: INR 1.03; PARTIAL THROMBOPLASTIN TIME 30.2 Seconds (25.1-36.5); PROTHROMBIN TIME 11.7 SECONDS (9.4-12.5)
[2018-01-09 17:29] LABS: ALB/GLOB RATIO 1.1 (1.1-1.8); ALBUMIN 3.7 g/dL (3.0-4.8); ALT/SGPT 15 U/L (7-56); AST/SGOT 30 U/L (14-36); BLOOD UREA NITROGEN 9 mg/dL (7-21); CALCIUM 9.3 mg/dL (8.4-10.5); GFR NON-AFRICAN AMERICAN 53
[2018-01-09 17:40] LABS: B-TYPE NATRIURETIC PEPTIDE 409 pg/mL (0-450); TROPONIN I < 0.01 ng/mL
--- NOTE | 2018-01-09 18:21 | RAD ---
Date of service: 01/09/2018 HISTORY: Shortness of breath COMPARISON: 11/30/2017. FINDINGS: LUNGS: No active pulmonary disease. PLEURA: No significant pleural effusion identified, no pneumothorax apparent. CARDIOVASCULAR: No atherosclerotic calcification present No radiographic findings to suggest acute or significant cardiovascular disease. Venous access catheter in stable, satisfactory position. OSSEOUS STRUCTURES: No significant abnormalities. VISUALIZED UPPER ABDOMEN: Normal. OTHER FINDINGS: None. IMPRESSION: No active disease. No significant interval change compared to the prior examination(s).
--- NOTE | 2018-01-09 18:22 | US ---
HISTORY: Leg pain and swelling. Evaluate for DVT PHYSICIAN(S): Ruddy Soliz MD. TECHNIQUE: Duplex sonography and color-flow Doppler with graded compression were used to evaluate the deep venous systems of both lower extremities. FINDINGS: The visualized deep venous systems of both lower extremities are sonographically normal and compressible. Normal wave forms and augmentation are seen. There is no sonographic evidence for deep venous thrombosis in the visualized segments of both lower extremities. IMPRESSION: No sonographic evidence for deep venous thrombosis in the visualized segments of both lower extremities.
[2018-01-09 18:56] VITALS: BP 159/101; PULSE 96; RESP 18; O2SAT 95
--- NOTE | 2018-01-10 09:28 | CARD ---
APPROVED REPORT Date of service: 01/09/2018 EKG Measurement Heart [id number] <Conclusion> Normal sinus rhythm Possible Left atrial enlargement Left axis deviation Left ventricular hypertrophy Abnormal ECG
== END 2018-01-09 18:56 | disposition home or self-care (01) ==
LOC: ED 15:40
DX: J44.9 Chronic obstructive pulmonary disease, unspecified (principal); I10 Essential (primary) hypertension; R60.0 Localized edema; M32.9 Systemic lupus erythematosus, unspecified; F17.210 Nicotine dependence, cigarettes, uncomplicated
CPT/HCPCS: 71045; 80053; 82550; 83615; 83735; 83880; 84484; 85025; 85378; 85610; 85730; 93005; 93970; 96374; 99283; J2930

== ENCOUNTER 2018-02-19 13:57 | Inpatient (IN) | payer MEDICARE, MEDICAID ==
--- NOTE | 2018-02-19 14:08 | ED PDOC ---
Arrival/HPI - General Chief Complaint: Shortness Of Breath Time Seen by Provider: 02/19/18 14:15 Historian: Patient - History of Present Illness Narrative History of Present Illness (Text): 02/19/18 14:31 47 year old tobacco-smoking female with PMH of TIA, CVA, lupus, COPD who presents to the emergency department complaining of shortness of breath and cough x 4 months. Associated chest pain when coughing. Cough is productive of yellow sputum. Unable to smoke cigarettes the last 2 days secondary to cough. Has seen her PMD Dr. Jordan multiple times for this issue, has been prescribed steroids and nebulizers without relief. Took multiple nebulizers today without relief. Denies fevers, chills, headache, dizziness, vision changes, abdominal pain, N/V, palpitations, diaphoresis, lightheadedness, or any other associated symptoms. Past Medical History - Provider Review Nursing Documentation Reviewed: Yes - Past History Past History: No Previous - Infectious Disease Hx of Infectious Diseases: None - Tetanus Immunization Tetanus Immunization: Up to Date - Cardiac Hx Cardiac Disorders: No - Pulmonary Hx Respiratory Disorders: Yes Hx Chronic Obstructive Pulmonary Disease (COPD): Yes - Neurological Hx Neurological Disorder: No Hx Migraine: Yes (on fioricet) Hx Transient Ischemic Attacks (TIA): No - HEENT Hx HEENT Disorder: No - Renal Hx Renal Disorder: Yes Hx Renal Failure: Yes - Endocrine/Metabolic Hx Endocrine Disorders: Yes Hx Systemic Lupus Erythematosus: Yes - Hematological/Oncological Hx Blood Disorders: Yes Hx Anemia: Yes - Integumentary Hx Dermatological Disorder: No - Musculoskeletal/Rheumatological Hx Musculoskeletal Disorders: Yes Hx Back Pain: Yes - Gastrointestinal Hx Gastrointestinal Disorders: Yes (hx GERD, GI ulcers) Hx Gastroesophageal Reflux: Yes - Genitourinary/Gynecological Hx Genitourinary Disorders: No - Psychiatric Hx Psychophysiologic Disorder: Yes Hx Anxiety: Yes Hx Depression: Yes Hx Substance Use: No - Surgical History Other/Comment: R chest port - Anesthesia Hx Anesthesia Reactions: No Hx Malignant Hyperthermia: No - Suicidal Assessment Feels Threatened In Home Enviroment: No Family/Social History - Physician Review Nursing Documentation Reviewed: Yes Family/Social History: No Known Family HX Smoking Status: Heavy Smoker > 10 Cigarettes Daily Hx Alcohol Use: No Hx Substance Use: No Hx Substance Use Treatment: No Allergies/Home Meds Allergies/Adverse Reactions: Allergies No Known Allergies Allergy (Verified 02/19/18 17:16) per patient Home Medications: Home Meds Medication Instructions Recorded Confirmed Albuterol HFA [Ventolin HFA 90 1 inh INH PRN PRN 04/07/17 01/09/18 mcg/actuation (8 g)] Alprazolam [Xanax] 2 mg PO TID 04/07/17 01/09/18 Budesonide/Formoterol Fumarate 2 puff INH DAILY 04/07/17 01/09/18 [Symbicort 160-4.5 Mcg Inhaler] Clonidine [Catapres-Tts 1] 0.2 mg TOP Q7D 04/07/17 01/09/18 Ergocalciferol (Vitamin D2) 50,000 units PO Q7D 04/07/17 01/09/18 [Vitamin D2] Fentanyl [Duragesic Patch] 150 mcg TOP Q72H 04/07/17 01/09/18 Mycophenolate Mofetil [Cellcept] 500 mg PO BID 04/07/17 01/09/18 Pantoprazole [Protonix EC Tab] 40 mg PO DAILY 04/07/17 01/09/18 Polyethylene Glycol 3350 [Miralax] 17 gm PO DAILY 04/07/17 01/09/18 Potassium Chloride [Klor-Con 10] 10 meq PO DAILY 04/07/17 01/09/18 QUEtiapine [SEROquel] 400 mg PO HS 04/07/17 01/09/18 Scopolamine [Transderm-Scop] 1 applic TOP Q72H 04/07/17 01/09/18 Tiotropium [Spiriva] 2 puff INH BID 04/07/17 01/09/18 Ursodiol [Actigall] 300 mg PO BID 04/07/17 01/09/18 Vilazodone HCl [Viibryd] 40 mg PO DAILY 04/07/17 01/09/18 oxyCODONE [oxyCODONE Immediate 15 mg PO 5XD 04/07/17 01/09/18 Release Tab] Doc-Q-Lac 100 mg pe PO PRN PRN 07/14/17 01/09/18 Fluticasone/Salmeterol 250/50 1 puff NEB BID 11/30/17 01/09/18 [Advair Diskus 250/50] Review of Systems - Physician Review All systems were reviewed & negative as marked: Yes - Review of Systems Constitutional: Normal. absent: Fevers Eyes: Normal. absent: Vision Changes, Photophobia ENT: Normal. absent: Sore Throat, Sinus Congestion Respiratory: SOB, Cough, Sputum Cardiovascular: Chest Pain. absent: Palpitations, Edema, Calf Pain, Syncope Gastrointestinal: Normal. absent: Abdominal Pain, Stool Changes, Nausea, Vomiting, Appetite Changes Genitourinary Female: Normal. absent: Dysuria, Frequency, Vaginal Bleeding, Vaginal Discharge Musculoskeletal: Normal. absent: Arthralgias, Back Pain Skin: Normal. absent: Rash Neurological: Normal. absent: Headache, Dizziness, Focal Weakness Endocrine: Normal Hemo/Lymphatic: Normal Psychiatric: Normal Physical Exam Vital Signs Reviewed: Yes Temperature: Afebrile Blood Pressure: Normal Pulse: Regular Respiratory Rate: Normal Appearance: Positive for: Well-Appearing, Non-Toxic, Comfortable Pain Distress: None Mental Status: Positive for: Alert and Oriented X 3 - Systems Exam Head: Present: Atraumatic, Normocephalic Pupils: Present: PERRL Extroacular Muscles: Present: EOMI Conjunctiva: Present: Normal Ears: Present: Normal, NORMAL TM Mouth: Present: Moist Mucous Membranes Pharnyx: Present: Normal. No: ERYTHEMA, EXUDATE, TONSILS ENLARGED Neck: Present: Normal Range of Motion Respiratory/Chest: Present: Wheezes (diffuse expiratory bilaterally), Decreased Breath Sounds (bilaterally), Rhonchi (diffuse bilaterally), Tender to Palpation (anterior). No: Respiratory Distress, Accessory Muscle Use, Tachypneic Cardiovascular: Present: Regular Rate and Rhythm, Normal S1, S2, Peripheal Pulses Present Abdomen: Present: Normal Bowel Sounds. No: Tenderness, Distention, Peritoneal Signs, Rebound, Guarding Back: Present: Normal Inspection. No: CVA Tenderness, Midline Tenderness, Paraspinal Tenderness Upper Extremity: Present: Normal Inspection, Normal ROM, NORMAL PULSES, Neurovascularly Intact, Capillary Refill < 2s. No: Cyanosis, Edema Lower Extremity: Present: Normal Inspection, NORMAL PULSES, Normal ROM, N eurovascularly Intact, Capillary Refill < 2 s. No: Edema Neurological: Present: GCS=15, CN II-XII Intact, Speech Normal, Motor Func Grossly Intact, Normal Sensory Function, Gait Normal Skin: Present: Warm, Dry, Normal Color. No: Rashes Lymphatic: No: Cervical Adenopathy Psychiatric: Present: Alert, Oriented x 3, Normal Insight, Normal Concentration, Normal Affect, Normal Mood Medical Decision Making ED Course and Treatment: 02/19/18 14:44 Initial Plan: * CBC, CMP * Mg, Phos * Coags * Urinalysis, culture * Solumedrol * Duoneb On initial exam, patient in no acute respiratory distress, speaking in complete sentences. Lungs with diffuse bilateral wheezing and rhonchi. CBC: mild leukocytosis at 11.5 CMP: unremarkable Cardiac Iso: negative Urinalysis: unremarkable CXR: no active disease 15:00 Patient states she feels slightly better after IV steroids. Lungs still with bilateral expiratory wheezing and rhonchi, will admit for COPD exacerbation. 15:[address] Acosta, who accepts patient for inpatient admission with di agnosis of COPD exacerbation. - Lab Interpretations Lab Results: 02/19/18 14:50 02/19/18 14:50 Lab Results 02/19/18 14:50: Troponin I < 0.01 02/19/18 14:50: Urine Color Yellow, Urine Appearance Sl cloudy, Urine pH 6.0, Ur Specific [place] >= 1.030, Urine Protein 100 H, Urine Glucose (UA) Negative, Urine Ketones Negative, Urine Blood Small H, Urine Nitrate Negative, Urine Bilirubin Negative, Urine Urobilinogen 0.2, Ur Leukocyte Esterase Negative, Urine RBC 1 - 3 H, Urine WBC 2 - 5, Ur Epithelial Cells 10 - 12 H, Urine Bacteria Mod 02/19/18 14:50: Sodium 142, Potassium 4.2, Chloride 117 H, Carbon Dioxide 21, Anion Gap 9 L, BUN 13, Creatinine 1.0, Est GFR ( Amer) > 60, Est GFR (Non-Af Amer) 60, Random Glucose 90, Calcium 9.1, Phosphorus 2.3 L, Magnesium 2.1, Total Bilirubin 0.3, AST 12 L D, ALT 27, Alkaline Phosphatase 74, Total Protein 7.0, Albumin 3.8, Globulin 3.2, Albumin/Globulin Ratio 1.2 02/19/18 14:50: PT 10.0, INR 0.88, APTT 24.2 L 02/19/18 14:50: WBC 11.5 H D, RBC 4.25, Hgb 10.8 L, Hct 34.9 L, MCV 82.1, MCH 25.4, MCHC 30.9 L, RDW 16.9 H, Plt Count 224, MPV 10.0, Gran % 85.3 H, Lymph % (Auto) 6.1 L, [place] % (Auto) 8.6 H, Eos % (Auto) 0.0 L, Baso % (Auto) 0.0, Gran # 9.80 H, Lymph # (Auto) 0.7 L, [place] # (Auto) 1.0 H, Eos # (Auto) 0.0, Baso # (Auto) 0.00 I have reviewed the lab results: Yes - RAD Interpretation Narrative RAD Interpretations (Text): 02/19/18 15:56 CXR: FINDINGS: LUNGS: Right-sided life port catheter unchanged in position. No pulmonary disease ap preciable bilaterally. PLEURA: No significant pleural effusion identified, no pneumothorax apparent. CARDIOVASCULAR: No aortic atherosclerotic calcification present. Normal cardiac size. No pulmonary vascular congestion. OSSEOUS STRUCTURES: No significant abnormalities. VISUALIZED UPPER ABDOMEN: Normal. OTHER FINDINGS: None. IMPRESSION: No interval acute cardiopulmonary disease appreciated. Alarm Technician: Radiologist - EKG Interpretation EKG Interpretation (Text): Rate 92; NSR; Normal Intervals; No STEMI, non-specific ST wave changes Type: 12 lead EKG Disposition/Present on Arrival - Present on Arrival Any Indicators Present on Arrival: No History of DVT/PE: No History of Uncontrolled Diabetes: No Urinary Catheter: No History Surgical Site Infection Following: None - Disposition Have Diagnosis and Disposition been Completed?: Yes Diagnosis: COPD exacerbation Disposition: HOSPITALIZED Disposition Time: 15:15 Patient Problems: Current Active Problems Problem Status Onset COPD exacerbation Acute Condition: IMPROVED
[2018-02-19] MEDS ORDERED: Albuterol-Ipratrop 3 mg / 0.5 (3 ml) UD IH SCH (14:30)
[2018-02-19 15:01] LABS: GRAN # 9.8 (1.4-6.5); GRAN % 85.3 % (50.0-68.0); HEMOGLOBIN 10.8 g/dL (12.0-16.0); LYMPH # 0.7 (1.2-3.4); LYMPH % 6.1 % (22.0-35.0); MEAN CELL VOLUME 82.1 fl (80.0-105.0); MEAN CORPUSCULAR HEMOGLOBIN 25.4 pg (25.0-35.0); MEAN CORPUSCULAR HGB CONC 30.9 g/dl (31.0-37.0); MONO % 8.6 % (1.0-6.0); RBC 4.25 10^6/uL (3.5-6.1); RED CELL DISTRIBUTION WIDTH 16.9 % (11.5-14.5); WHITE BLOOD COUNT 11.5 10^3/uL (4.5-11.0)
[2018-02-19 15:03] LABS: URINE BILIRUBIN NEGATIVE (NEGATIVE); URINE BLOOD SMALL (NEGATIVE); URINE GLUCOSE (UA) NEGATIVE (NEGATIVE); URINE LEUKOCYTE ESTERASE NEGATIVE Leu/uL (NEGATIVE); URINE PROTEIN 100 mg/dL (<30 mg/dL); URINE UROBILINOGEN 0.2 E.U./dL (<1 E.U./dL)
[2018-02-19 15:05] LABS: URINE COLOR YELLOW (YELLOW)
[2018-02-19 15:07] LABS: URINE APPEARANCE SL CLOUDY (CLEAR)
[2018-02-19 15:08] LABS: ALB/GLOB RATIO 1.2 (1.1-1.8); ALBUMIN 3.8 g/dL (3.0-4.8); ALT/SGPT 27 U/L (7-56); AST/SGOT 12 U/L (14-36); BLOOD UREA NITROGEN 13 mg/dL (7-21); CALCIUM 9.1 mg/dL (8.4-10.5); GFR NON-AFRICAN AMERICAN 60
[2018-02-19 15:09] LABS: URINE BACTERIA MOD /hpf
--- NOTE | 2018-02-19 15:09 | RAD ---
Date of service: 02/19/2018 HISTORY: SOB, h/o COPD COMPARISON: Frontal chest radiograph 01/09/2018. FINDINGS: LUNGS: Right-sided life port catheter unchanged in position. No pulmonary disease appreciable bilaterally. PLEURA: No significant pleural effusion identified, no pneumothorax apparent. CARDIOVASCULAR: No aortic atherosclerotic calcification present. Normal cardiac size. No pulmonary vascular congestion. OSSEOUS STRUCTURES: No significant abnormalities. VISUALIZED UPPER ABDOMEN: Normal. OTHER FINDINGS: None. IMPRESSION: No interval acute cardiopulmonary disease appreciated.
[2018-02-19 15:13] LABS: INR 0.88; PARTIAL THROMBOPLASTIN TIME 24.2 Seconds (25.1-36.5)
[2018-02-19] MEDS ORDERED: Oxycodone/Acetaminophen 5/325 mg Tab PO STA (17:16)
[2018-02-19] MEDS ORDERED: Ergocalciferol 50,000 Intl Units Cap PO SCH (18:15)
[2018-02-19] MEDS ORDERED: Arformoterol 15 mcg/2 ml Inh Sol IH SCH (20:00)
[2018-02-19] MEDS ORDERED: Budesonide 0.5 mg/2 ml Inhal Susp UD IH SCH (20:00)
[2018-02-19 22:40] VITALS: BMI 47.8
[2018-02-19] MEDS ORDERED: Pneumococcal 23-Valent Vaccine IM ONE (22:40)
[2018-02-19] MEDS ORDERED: Influenza Vaccine 60 mcg/0.5 mL SYR (4YR UP) IM ONE (22:40)
[2018-02-19] MEDS: Budesonide 0.5 mg/2 ml Inhal Susp UD IH SCH (22:50)
[2018-02-19] MEDS: Arformoterol 15 mcg/2 ml Inh Sol IH SCH (22:52)
--- NOTE | 2018-02-19 23:05 | CARD ---
APPROVED REPORT Date of service: 02/19/2018 EKG Measurement Heart [id number] <Conclusion> Normal sinus rhythm Minimal voltage criteria for LVH, may be normal variant Borderline ECG
[2018-02-19] MEDS: guaiFENesin DM 100 mg-10 mg/5 ml UD PO PRN (23:59)
--- NOTE | 2018-02-20 00:52 | HP ---
DATE OF EXAM: 02/19/2018 The patient was seen and examined at the emergency room on 02/19/2018. was sitting on the bedside also. CHIEF COMPLAINT: Shortness of breath. HISTORY OF PRESENT ILLNESS: Ms. Josie Hurst is a 47-year-old female with history of heavy smoking, history of TIA, CVA, lupus, COPD, chronic pain syndrome, depression, renal insufficiency, came to the emergency room department with shortness of breath, coughing for 4 months associated with chest pain, cough is productive of yellow sputum, unable to smoke cigarette because of shortness of breath from last 2 days and due to coughing. The patient has multiple issues, under the care of pain management, psychiatrist, cryptographic clerk, litigation attorney. According to the patient, she took multiple nebulizer treatments today without relief, even took steroids at home. No fever. No chills. No dizziness. No vision changes. No abdominal pain. No nausea, vomiting, palpitation. No diaphoresis. PAST MEDICAL HISTORY: As above, COPD, TIA, migraine, renal insufficiency, anemia, back pain, GERD, GI ulcers, depression, anxiety, under the care of psychiatrist. FAMILY HISTORY: Father and mother noncontributory. HABITS: History of heavy smoking. Alcohol, no. Substance abuse, no. ALLERGIES: THE PATIENT IS NOT ALLERGIC WITH ANY MEDICATIONS. HOME MEDICATIONS: Ventolin, Xanax, Symbicort, fentanyl patch, CellCept, Protonix, potassium, Seroquel, scopolamine, Spiriva, Actigall, Viibryd, Percocet, Tylenol. REVIEW OF SYSTEMS: The patient was seen and examined at the bedside in ER. was sitting on the bedside also. No vision changes. No sore throat, sinus congestion. The patient is coughing up with shortness of breath, chest pain, and no palpitation. No abdominal pain. No nausea, vomiting. No dysuria. No frequency. No vaginal bleeding or vaginal discharge. No arthralgia. No headache, dizziness, or focal weakness. PHYSICAL EXAMINATION VITAL SIGNS: Temperature 98.6, pulse 86, blood pressure 132/71, respiratory rate 18, oxygenation 97. HEENT: Head: Normocephalic, atraumatic. Eyes: PERRLA. Extraocular muscles are intact. Conjunctivae clear. Nose patent. NECK: Supple. No carotid bruit. No JVD or thyromegaly. CHEST: Bilaterally symmetrical. HEART: S1 and S2, positive. LUNGS: Clear to auscultation. ABDOMEN: Soft. Bowel sounds present. No organomegaly. EXTREMITIES: No edema. No cyanosis. NEUROLOGICAL: The patient is awake and alert. Follows simple commands. LABORATORY DATA: White blood cells 11.5, hemoglobin 10.8, hematocrit 34.9, platelets 224. Sodium 142, potassium 4.2, BUN 13, creatinine 1.0. Phosphorus 2.3. AST 12. ASSESSMENT AND PLAN: Ms. Josie Hurst is a 47-year-old female with leukocytosis, anemia, hyperchloremia, hypophosphatemia, proteinuria, hematuria, came with exacerbation of asthma, chronic obstructive pulmonary disease exacerbation, chest x-rays done, reviewed by me; steroid dependency; history of transient ischemic attack; cerebrovascular accident; lupus; obesity; history of gastric bypass surgery, then revision; migraine; renal insufficiency; chronic pain syndrome, is under the care of pain management for chronic pain; gastroesophageal reflux disease; dyspepsia; history of peptic ulcers; anxiety and depression, under the care of psychiatrist. We admitted the patient, gave antibiotics, started on steroid. Gastrointestinal and deep venous thrombosis prophylaxis. Pulmonary consult called. Psychiatric consult called also, because the patient is on so many medications. Repeat labs. We will follow up. Emelina Jordan MD
[2018-02-20] MEDS: Arformoterol 15 mcg/2 ml Inh Sol IH SCH ×2 (08:09→19:29)
[2018-02-20] MEDS: Albuterol-Ipratrop 3 mg / 0.5 (3 ml) UD IH PRN (08:09)
[2018-02-20] MEDS: Budesonide 0.5 mg/2 ml Inhal Susp UD IH SCH ×2 (08:10→19:30)
[2018-02-20 08:38] LABS: HEMOGLOBIN 10.6 g/dL (12.0-16.0); MEAN CELL VOLUME 82.5 fl (80.0-105.0); MEAN CORPUSCULAR HEMOGLOBIN 25.4 pg (25.0-35.0); MEAN CORPUSCULAR HGB CONC 30.8 g/dl (31.0-37.0); MEAN PLATELET VOLUME 10.3 fl (7.0-11.0); RBC 4.17 10^6/uL (3.5-6.1); RED CELL DISTRIBUTION WIDTH 17.2 % (11.5-14.5); WHITE BLOOD COUNT 12.6 10^3/uL (4.5-11.0)
[2018-02-20 08:46] LABS: BLOOD UREA NITROGEN 14 mg/dL (7-21); CALCIUM 9.1 mg/dL (8.4-10.5); GFR NON-AFRICAN AMERICAN > 60
[2018-02-20 09:09] LABS: IRON 26 ug/dL (45-180)
[2018-02-20 09:19] LABS: % IRON SATURATION 7 % (20-55); TOTAL IRON BINDING CAPACITY 395 ug/dL (265-497)
[2018-02-20] MEDS: Potassium Chloride 10 mEq ER Tab PO SCH (09:34)
[2018-02-20] MEDS: Enoxaparin 40 mg Syringe SC SCH (09:39)
[2018-02-20] MEDS: Pantoprazole 40 mg EC Tab PO SCH (09:43)
[2018-02-20] MEDS: POLYETHYLENE GLYCOL 3350 17 GM/Dose PACKET PO SCH (09:43)
[2018-02-20] MEDS: Methocarbamol 500 MG Tab PO SCH ×3 (09:44→18:09)
[2018-02-20] MEDS: guaiFENesin DM 100 mg-10 mg/5 ml UD PO PRN ×2 (09:45→17:55)
[2018-02-20] MEDS: cefTRIAXone 1 gm 1 GM/100 ML BAG IVPB SCH (09:45)
[2018-02-20] MEDS: OLANZapine 5 mg Disintegrating Tab PO SCH ×2 (09:47→21:28)
[2018-02-20] MEDS: Azithromycin 500MG/NS 250ml 500 MG/250 ML BAG IVPB SCH (09:51)
[2018-02-20] MEDS ORDERED: Azithromycin 500 MG in Sodium Chloride 0.9% 250 ML IVPB SCH (10:00)
[2018-02-20] MEDS: Tiotropium 18 mcg Cap For Inhalation INH SCH (10:25)
[2018-02-20 13:15] LABS: FOLATE 7.5 ng/mL
--- NOTE | 2018-02-20 15:01 | CON ---
DATE OF CONSULTATION: 02/20/2018 HISTORY OF PRESENT ILLNESS: Shortly, the patient is a 47-year-old female, history of CVA, TIA, COPD. The patient still smokes. The patient was admitted on the medical side for evaluation of cough for plus 4 months. Psych consult was called for evaluation of medications. The patient has history of schizoaffective disorder and seeing psychiatrist in the community. The patient was seen and examined. This story writer is very familiar with this patient from the previous consultation services, which took place here at [facility]. Last time the patient was evaluated by this story writer was 01/31/2017. The patient presented the same way. As per previous history, the patient was on Lyrica 200 mg three times a day, Xanax 10 mg four times a day, Seroquel 200 mg daily, also Prozac 20 mg daily as well as Suboxone 8 mg daily and olanzapine 5 mg at nighttime. The patient reported that she is on the same medication regiment, but Xanax was increased to five times a day, Seroquel at present moment 200 mg at the morning time and 400 mg at the nighttime. The patient reported that she is on Prozac 20, olanzapine 5, and these medications could be confirmed by the patient's pharmacy, which is [facility], but unfortunately pharmacy is closed today and there is no way to confirm that medication, but the patient appears to be alert and oriented, was able to provide history. The patient said that she wants to continue the same medication regimen and this story writer could call back to her pharmacy and confirm medications tomorrow. We will do that. The patient presented to be alert. The patient said that she does not feel depressed. She does not hear voices and at present moment she is psychologically and psychiatrically stable. The patient said that she has history of mental illness and multiple hospitalizations, more than [address] [facility]. The patient reported that she had more than four suicidal attempts in the past and at present moment the patient is seeing Dr. Oscar Mcpherson in the community. Last time the patient saw Dr. Mcpherson was 11/2017 and has next appointment on 02/23/2018. The patient said that she is seeing Dr. Mcpherson every 3 months because she is stable. VITAL SIGNS: Seem to be stable. Temperature 97.9, pulse is 82, blood pressure 152/79, respirations 26, and saturation is 100. MEDICATIONS: Reviewed. DuoNeb, Xanax will be increased to 2 mg four times a day as needed for anxiety and 2 mg daily as needed. The patient is on Brovana, aspirin, Lipitor, Zithromax, Pulmicort, Rocephin, Catapres, Lovenox, fentanyl, Drisdol, Prozac 20 mg daily, Lasix, Robitussin, methocarbamol, Solu-Medrol, Singulair, Viibryd was requested for the family to bring in because it is non-formulary in the hospital, Zyprexa Zydis 5 mg at nighttime, and [place]. The patient also is on Lyrica. Seroquel 200 mg daily and 400 mg at nighttime will be resumed. The patient is on Spiriva and . LABS: Reviewed. White blood cells elevated. Coagulation reviewed. Urinalysis reviewed. Serology reviewed. Microbiology: There is no growth in urine. MENTAL STATUS EXAMINATION: The patient presented to be alert and oriented, fair eye contact. Mood described as okay, but anxious. Affect was constricted. Thought process seems to be circumstantial, but there is no tangentiality. Thought content, the patient denied visual, auditory, or tactile hallucinations at present moment, but the patient has history of hearing voices. Insight and judgment seem to be fair. Impulses are well controlled. IMPRESSION: Rule out schizophrenia, rule out schizoaffective disorder. PLAN: Continue current management. Continue current medication. Medications were resumed. Tomorrow we will call [facility] to confirm medication. Meanwhile, the patient seems to be good and reliable historian. We will continue on medication what the patient reported being on. So far, the patient is not agitated, not aggressive. We will follow up tomorrow and advise accordingly. Thank you very much for letting me participate in the care of your patient. Reena Jacob MD
--- NOTE | 2018-02-20 20:30 | CON ---
PULMONARY CONSULT DATE OF CONSULTATION: 02/20/2018 REFERRING PHYSICIAN: Emelina Jordan MD REASON FOR CONSULTATION: Chronic lung disease, sleep apnea syndrome. HISTORY OF PRESENT ILLNESS: This is a 47-year-old female known to me from previous admission, noncompliant with followup in the office, recently restarted smoking. Has multiple medical issues including CVA, lupus, chronic pain syndrome, on multiple medications, depression, renal insufficiency, history of gastric bypass surgery, history of blind loop ulcers, anxiety disorder. Comes in with cough, sputum production, shortness of breath. Seen by Psychiatry. Medications were adjusted. No fever, no chills. No dysuria. No leg pain or leg swelling. PAST MEDICAL HISTORY: As per history of present illness. FAMILY HISTORY: No significant cardiopulmonary disease reported. SOCIAL HISTORY: Active smoker. Denies any alcohol use. MEDICATIONS: She is on Actigall 200 mg twice a day, Brovana inhaled twice a day, clonidine patch 2 mg every 7 days, Cellcept 500 mg twice a day, vitamin D 50,000 units every 7 days, DuoNeb every 6 hours p.r.n., Duragesic patch every 72 hours, Ecotrin 81 mg daily, potassium 10 mEq daily, Lasix 40 mg daily, Lipitor 10 mg daily, Lovenox 40 mg subcu daily, Lyrica 200 mg three times a day, MiraLax 17 g daily, Protonix 40 mg daily, Prozac 20 mg h.s., Pulmicort inhaled twice a day, Robaxin 750 mg three times a day, Robitussin DM 5 mL every 4 hours p.r.n., Rocephin 1 g IV daily, Seroquel 200 mg daily and 400 mg h.s., Singulair 10 mg daily, Solu-Medrol 60 mg every 6 hours, Spiriva inhaled daily, scopolamine patch every 72 hours, also getting vilazodone 40 mg daily, Xanax 2 mg four times a day p.r.n., Xanax 2 mg daily p.r.n. also, Zithromax 5 mg daily, Zyprexa 5 mg daily and 5 mg h.s. ALLERGIES: NONE KNOWN. REVIEW OF SYSTEMS: No headache, no rhinitis. Has cough, shortness of breath, mild epigastric discomfort. No nausea, no vomiting, diarrhea, leg pain or leg swelling. PHYSICAL EXAMINATION: GENERAL: Lying in the bed. VITAL SIGNS: Temperature is 98, heart rate is 77, respiratory rate is 20, blood pressure 139/91, pulse ox 98% on room air. HEENT: Moist mucous membrane. Crowded airway. Mallampati score is 4. NECK: Supple. No JVD. LUNGS: Have scattered rhonchi and wheezing. HEART: S1 and S2. ABDOMEN: Soft. Mild epigastric tenderness. EXTREMITIES: There is no edema. NEUROLOGIC: Awake and alert. Follows simple commands. LABORATORY DATA: Hemoglobin 10.6, hematocrit 34.4, WBC 12.6, platelets 206. INR 0.8. PTT is 24. Sodium 139, potassium 4.8, chloride 113, bicarbonate 21, BUN 14, creatinine 0.8, glucose 122, calcium 9.1. Iron is 26. TSH 0.16. Chest x-ray done today shows no acute pulmonary disease reported. IMPRESSION AND PLAN: Chronic obstructive lung disease, history of lupus, stroke, anxiety disorder, benzodiazepine dependent. Last sleep study did not show any sleep apnea. Agree with Dr. Jordan with the present management. Will decrease Solu-Medrol to 40 every 8 hours and add antibiotics. May add Carafate slurries 4 times a day. DVT prophylaxis. Fall precautions. Continue Psychiatry followup. Thank you and we will follow with you. Nicolle Pollack MD
--- NOTE | 2018-02-20 20:33 | PN ---
DATE: 02/20/2018 SUBJECTIVE: The patient is a 47-year-old female. The patient was seen and examined at the bedside on 02/20/2018. Looking comfortable. No fever. No chills. No nausea, vomiting, or diarrhea. No hematuria. No hematochezia. No swelling of the legs. No chest pain. No palpitations. No headache. No dizziness. PHYSICAL EXAMINATION: VITAL SIGNS: Temperature 97.9, pulse 79, blood pressure 152/71, and respiratory rate 20. HEENT: Head; normocephalic and atraumatic. Eyes; PERRLA. Extraocular muscles intact. Conjunctivae clear. Nose patent. Mucous membranes are moist. NECK: Supple. No carotid bruit. No JVD. No thyromegaly. LUNGS: Positive wheezing bilaterally. HEART: S1 and S2 positive. ABDOMEN: Soft. Bowel sounds present. No organomegaly. EXTREMITIES: No edema. No cyanosis. NEUROLOGIC: The patient is awake and alert. Follows simple commands. MEDICATIONS: Actigall, Brovana, Catapres, CellCept, vitamin D, fentanyl patch, aspirin, Ecotrin, Lasix, Lipitor, Lovenox, Lyrica, MiraLax, Protonix, Prozac, Pulmicort, metoclopramide, Rocephin, Seroquel, Spiriva, scopolamine, Xanax, Zithromax, and Zyprexa. LABORATORY DATA: White blood cells 12.6, hemoglobin 10.6, hematocrit 34.4, and platelets 206. Sodium 139, potassium 4.8, BUN 14, creatinine 0.8, glucose 122, iron 26, and HDL 54. ASSESSMENT AND PLAN: Ms. Josie Hurst is a 47-year-old female with leukocytosis, anemia, hyperglycemia, hyperchloremia, iron deficiency, hypothyroidism, proteinuria, hematuria, influenza type A and B is negative, is admitted for exacerbation of chronic obstructive pulmonary disease, was very anxious and is on lot of psych medications. I restarted medications, but want to confirm with the psych, seen by Dr. Reena Jacob, she started to rule out schizophrenia, rule out schizoaffective disorder. Continue current management. Medications got resumed as per patient's reliable history, but Dr. Reena Jacob will call [facility] tomorrow to confirm the psych medication, meanwhile continue the same medication. History of obesity, gastric bypass, and lupus. Getting tapering dose of Solu-Medrol. The patient has a history of transient ischemic attack, migraine, renal insufficiency improved, back pain, she got dyspepsia, and history of gastrointestinal ulcer. Student Union Consultant is on that case. We will followup. Emelina Jordan MD MTDD
[2018-02-20] MEDS: Sucralfate 1 gm/10 ml Oral Susp UD PO SCH (21:27)
[2018-02-20] MEDS: MethylPREDNISolone 40 mg Vial IVP SCH (21:28)
[2018-02-21] MEDS: guaiFENesin DM 100 mg-10 mg/5 ml UD PO PRN (03:59)
[2018-02-21] MEDS: Albuterol-Ipratrop 3 mg / 0.5 (3 ml) UD IH PRN (04:10)
[2018-02-21] MEDS: Sucralfate 1 gm/10 ml Oral Susp UD PO SCH ×4 (05:51→21:30)
[2018-02-21] MEDS: MethylPREDNISolone 40 mg Vial IVP SCH ×3 (05:52→21:32)
[2018-02-21] MEDS: Budesonide 0.5 mg/2 ml Inhal Susp UD IH SCH ×2 (09:00→19:25)
[2018-02-21] MEDS: Arformoterol 15 mcg/2 ml Inh Sol IH SCH ×2 (09:00→19:25)
[2018-02-21] MEDS: OLANZapine 5 mg Disintegrating Tab PO SCH ×2 (09:55→21:31)
[2018-02-21] MEDS: Pantoprazole 40 mg EC Tab PO SCH (09:56)
[2018-02-21] MEDS: Tiotropium 18 mcg Cap For Inhalation INH SCH (09:58)
[2018-02-21] MEDS: Potassium Chloride 10 mEq ER Tab PO SCH (09:58)
[2018-02-21] MEDS: Methocarbamol 500 MG Tab PO SCH ×3 (09:58→17:22)
[2018-02-21] MEDS: POLYETHYLENE GLYCOL 3350 17 GM/Dose PACKET PO SCH ×2 (10:02→11:32)
[2018-02-21] MEDS: cefTRIAXone 1 gm 1 GM/100 ML BAG IVPB SCH (10:02)
[2018-02-21] MEDS: Azithromycin 500MG/NS 250ml 500 MG/250 ML BAG IVPB SCH (10:03)
[2018-02-21] MEDS: Enoxaparin 40 mg Syringe SC SCH (10:09)
--- NOTE | 2018-02-21 10:59 | CP.PCM.PCO ---
Addendum Addendum: 02/21/18 10:55 meds confirmed by pt's pharmacy [phone] prozac 20mg po daily gabapentin 600mg po tid suboxone 8/2mg bid viibryd 40mg po daily zolpidem ER 12.5mg daily zubsolv 5.7-1.4 seroquel 200mg po bid an d400mg po hs zyprexa 5mg po daily xanax 2mg po qid prescribed by Dr. Mcpherson prozac, seroquel, zyprexa, xanax resumed the rest of meds pt could restart at home or if pt's family bring it as a home meds pt is not in imminent danger to self or others pt has f/u appt with this chart writer will sign off med list was filled in the chart.
--- NOTE | 2018-02-21 13:07 | PN ---
DATE: 02/21/2018 PULMONARY PROGRESS NOTE REFERRING PHYSICIAN: Emelina Jordan MD SUBJECTIVE: The patient is sitting up in bed, no acute distress. No overnight events reported. The patient does report slight improvement in cough, shortness of breath, and wheezing. No headache, rhinitis, chest pain, abdominal pain, nausea, vomiting, diarrhea, leg pain or leg swelling reported. OBJECTIVE: GENERAL: No acute distress. VITAL SIGNS: Blood pressure 136/89, pulse 74, temperature 98.2 and oxygen saturation 98%. HEENT: Moist mucous membranes. Crowded airway. Mallampati score of 4. NECK: Supple. No JVD. LUNGS: Scattered rhonchi bilaterally. No audible wheezing. CARDIOVASCULAR: S1 and S2, audible. ABDOMEN: Soft and nontender. No distention. No organomegaly. EXTREMITIES: No bilateral lower extremity edema. NEUROLOGIC: Awake, alert and verbal. Follows simple commands. MEDICATIONS: Reviewed. DuoNeb 3 mL inhalation every 6 hours p.r.n., Xanax 2 mg 4 times a day p.r.n., Brovana 15 mcg every 12 hours, aspirin 81 mg daily, Lipitor 10 mg at dinner, Zithromax 500 mg daily, Pulmicort 0.5 mg every 12 hours, Clonidine patch 0.2 mg every 7 days, Lovenox 40 mg daily, ergocalciferol 50,000 units every 7 days, fentanyl 1 patch every 72 hours, ferrous sulfate 324 mg twice a day, Prozac 20 mg at bedtime, Lasix 40 mg daily, Robitussin DM 5 mL every 4 hours p.r.n., Robaxin 750 mg three times a day, Solu-Medrol 40 mg every 8 hours, Singulair 10 mg at bedtime, Cellcept cap 500 mg twice a day, 40 mg daily, Zyprexa 5 mg at bedtime, Protonix 40 mg daily, Miralax 17 g daily, potassium and chloride 10 mEq daily, Lyrica 200 mg three times a day, Seroquel 40 mg at bedtime, 200 mg twice a day, scopolamine patch 1 patch every 72 hours, Carafate 1 g four times a day, Spiriva 18 mcg inhalation daily, Risperdal 300 mg twice a day. LABORATORY DATA: Reviewed. Urine culture preliminary no growth. IMPRESSION AND PLAN: Chronic obstructive lung disease, history of lupus, stroke, anxiety disorder, benzodiazepine dependant. Continue steroids. Continue antibiotic therapy. Gastric prophylaxis and deep venous thrombosis prophylaxis and fall precautions. Continue followup with psychiatry. The patient's last sleep study did not shows any sleep apnea. This patient was seen and examined with Dr. Pollack. Discussed assessment and plan as described above. Thank you for this consult and we will follow with you. Jono Gresham APN Nicolle Pollack MD
--- NOTE | 2018-02-21 13:37 | PN ---
DATE: 02/21/2018 SUBJECTIVE: The patient was seen today. The patient appears to be much better to compare with yesterday. The patient reported that at present moment she feels good on the current medications. The patient was happy to restart all of her psychotropic medications, still pharmacy is closed. We will call and obtain medication list from the patient's pharmacy at [facility] [place] and give you advices meanwhile. Right now, the patient needs to continue all of the psychotropic medications. As per report from the nursing staff, the patient is calm, cooperative. The patient is compliant with treatment. No agitation. No aggression. The patient never verbalized any thoughts of harming herself or others. Going back to the patient, the patient said that she learned her lesson, she is willing to quit smoking. The patient said that this experience in this hospitalization scared her and she right now adamant that she wants to quit smoking. The patient was offered nicotine patch, but the patient refused to have it because the patient was not improving on nicotine patch in the past and still smoking. The patient also had history of being on Chantix and had good response to that medication and it was advised to speak to her outpatient provider and discuss that option. The patient verbalized understanding. PHYSICAL EXAMINATION: GENERAL: The patient presented to be calm, cooperative, no agitation or aggression. No psychosis. VITAL SIGNS: Stable. Temperature 98.2, pulse 74, blood pressure 136/89, respiration 26 and saturation is 98. MEDICATIONS: Reviewed. The patient is on Xanax 2 mg four times a day and 2 mg as needed. The patient is on Brovana, aspirin, Lipitor, Zithromax, Pulmicort, clonidine, Lovenox, Prozac 20 mg, Lasix 40 mg daily, Robitussin, Solu-Medrol, Singulair, Zyprexa Zydis 5 mg at the nighttime and at the nighttime probably medical team increase the doses. The patient is on Lyrica, MiraLax, [place], Seroquel 400 mg at the nighttime, 200 mg daily, Spiriva, and Actigall. LABORATORY DATA: Reviewed. Most recent was from yesterday. The patient has some mild left leukocytosis. MENTAL STATUS EXAMINATION: The patient presented to be alert and oriented, pleasant, cooperative, good personal hygiene. Good eye contact. Mood described as I feel better. Affect was reactive, mood congruent. Thought process was coherent and goal directed. Thought content, the patient denied visual, auditory, tactile hallucinations. Denied paranoid ideation. The patient does not present to be psychotic. The patient has history of hearing voices but not this admission. Insight and judgment seems to be fair. Impulses are well controlled. IMPRESSION: As per history, bipolar disorder with psychosis versus schizoaffective disorder. At present moment, the patient is in remission. The patient has multiple medical issues which brought the patient to the hospital. The patient has nicotine addiction, but at present moment, the patient is convinced that she wants to quit smoking. PLAN: All of the medications will be confirmed by the patient's pharmacy. Meanwhile, continue current management. Continue current medication. We will advised about medication, but the patient posed no imminent danger to self or others. We will give information about medications and will sign off. The patient posed no imminent danger. Reena Jacob MD
[2018-02-21] MEDS ORDERED: Labetalol 5 mg/ml Inj 20ML IV STA (17:50)
[2018-02-22] MEDS: MethylPREDNISolone 40 mg Vial IVP SCH ×2 (05:53→14:43)
[2018-02-22] MEDS: Sucralfate 1 gm/10 ml Oral Susp UD PO SCH ×3 (05:53→16:21)
[2018-02-22 07:17] LABS: CALCIUM 8.6 mg/dL (8.4-10.5)
[2018-02-22 07:21] LABS: HEMOGLOBIN 12.3 g/dL (12.0-16.0); MEAN CELL VOLUME 83.1 fl (80.0-105.0); MEAN CORPUSCULAR HEMOGLOBIN 25.1 pg (25.0-35.0); MEAN CORPUSCULAR HGB CONC 30.1 g/dl (31.0-37.0); MEAN PLATELET VOLUME 10.8 fl (7.0-11.0); RBC 4.91 10^6/uL (3.5-6.1); RED CELL DISTRIBUTION WIDTH 17.4 % (11.5-14.5); WHITE BLOOD COUNT 14.9 10^3/uL (4.5-11.0)
[2018-02-22] MEDS: Budesonide 0.5 mg/2 ml Inhal Susp UD IH SCH (09:08)
[2018-02-22] MEDS: Arformoterol 15 mcg/2 ml Inh Sol IH SCH (09:08)
--- NOTE | 2018-02-22 11:09 | PN ---
DATE: 02/21/2018 SUBJECTIVE: The patient is 47-year-old female. The patient was seen and examined at the bedside on 02/21/2018. Looking comfortable. No fever. No chills. No nausea, vomiting, or diarrhea. No hematuria or hematochezia. No swelling of the legs. No chest pain. No palpitation. Cough is better. Shortness of breath is better. PHYSICAL EXAMINATION: VITAL SIGNS: Blood pressure 130/80, pulse 74, temperature 98.2, and oxygen saturation 98%. HEENT: Head, normocephalic and atraumatic. Eyes: PERRLA. Extraocular muscles are intact. Conjunctivae clear. Nose patent. Mucous membranes moist. NECK: Supple. No carotid bruit. No JVD. LUNGS: Scattered rhonchi bilaterally. No wheezing. HEART: S1 and S2 positive. ABDOMEN: Soft and nontender. No organomegaly. EXTREMITIES: Bilateral lower extremity, no edema. NEUROLOGIC: Awake and alert. Follows simple commands. MEDICATIONS: DuoNeb, Xanax, Brovana, Lipitor, Zithromax, clonidine, Lovenox, vitamin D, fentanyl patch, ferrous sulfate, Prozac, Robitussin, Solu-Medrol, CellCept, Zyprexa, Lyrica, Seroquel, scopolamine, Carafate, and risperidone. LABORATORY DATA: We do not have recent lab today, but I reviewed old labs. ASSESSMENT AND PLAN: The patient is a 47-year-old female with multiple medical problems, history of gastric bypass, lupus, history of renal insufficiency improved, chronic obstructive lung disease, history of stroke, anxiety, benzodiazepine dependency, history of steroid dependency, came with shortness of breath, exacerbation of asthma, coughing for many months. We admitted the patient. Pulmonary consult called. Steroids given. The patient is getting physical therapy, out of bed, gastrointestinal and deep venous thrombosis prophylaxis. Repeat laboratories. Discussion done with nurse practitioner, We will follow up. Emelina Jordan MD LINDA
[2018-02-22] MEDS: Potassium Chloride 10 mEq ER Tab PO SCH (11:18)
[2018-02-22] MEDS: Enoxaparin 40 mg Syringe SC SCH (11:18)
[2018-02-22] MEDS: Methocarbamol 500 MG Tab PO SCH ×2 (11:19→14:41)
[2018-02-22] MEDS: Pantoprazole 40 mg EC Tab PO SCH (11:19)
[2018-02-22] MEDS: POLYETHYLENE GLYCOL 3350 17 GM/Dose PACKET PO SCH (11:19)
[2018-02-22] MEDS: Tiotropium 18 mcg Cap For Inhalation INH SCH ×2 (11:20→11:29)
[2018-02-22] MEDS: Azithromycin 500MG/NS 250ml 500 MG/250 ML BAG IVPB SCH (11:21)
--- NOTE | 2018-02-22 12:31 | PN ---
DATE: 02/22/2018 PULMONARY PROGRESS NOTE REFERRING PHYSICIAN: Emelina Jordan MD SUBJECTIVE: The patient sitting up in bed. No acute distress. Reports feeling better today. Nursing staff reports the patient with high blood pressure 160/100. This morning, was given onetime dose of hydralazine. No headache, rhinitis, chest pain, abdominal pain, nausea, vomiting, diarrhea, leg pain or leg swelling reported. The patient does report some improvement in cough and shortness of breath. PHYSICAL EXAMINATION GENERAL: No acute distress. VITAL SIGNS: Blood pressure 160/100, pulse 81, temperature 97.5 and oxygen saturation 90% on room air. HEENT: Moist mucous membranes. Crowded airway. Mallampati score of 4. NECK: Supple. No JVD. LUNGS: Scattered rhonchi bilaterally. Some audible wheezing in the left lower lobe. CARDIOVASCULAR: S1 and S2 audible. ABDOMEN: Soft and nontender. No distension. No organomegaly. EXTREMITIES: No bilateral lower extremity edema. NEUROLOGICAL: Awake, alert, verbal and follows commands. MEDICATIONS: Reviewed. DuoNeb 3 mL inhalation every 6 hours p.r.n., Xanax 2 mg 4 times a day p.r.n., Brovana 15 mcg every 2 hours, aspirin 81 mg p.o. daily, Lipitor 10 mg at dinner, Zithromax 500 mg IV piggyback daily, Pulmicort 0.5 mg every 12 hours, clonidine 0.2 mg patch every 7 days, Lovenox 40 mg subcutaneous daily, ergocalciferol 50,000 units every 7 days, fentanyl 1 patch every 72 hours, ferrous sulfate 324 mg twice a day, Prozac 20 mg at bedtime, Lasix 40 mg daily, Robitussin 5 mL every 4 hours p.r.n., hydralazine mg IV push stat, Robaxin 750 mg three times a day, Solu-Medrol 40 mg IV push every 8 hours, Singulair 10 mg at bedtime, Cellcept cap 500 mg twice a day, Viibryd 40 mg daily, Zyprexa 5 mg at bedtime, Protonix 40 mg daily, MiraLax 17 grams daily, potassium chloride 10 mEq daily, Lyrica 200 mg three times a day, Seroquel 400 mg at bedtime, Seroquel 200 mg twice a day, scopolamine patch 1 patch every 72 hours, Carafate 1 gram four times a day, Spiriva 18 mcg inhalation daily and Ursodiol 300 mg twice a day. LABORATORY DATA: WBC 14.9, RBC 4.91, hemoglobin 12.3, hematocrit 40.8, and platelets 256. Sodium 139, potassium 3.6, chloride 110, carbon dioxide 23, anion gap 9, BUN 27, creatinine 1.2, GFR 59, random glucose 170 and calcium 8.6. Urine culture final, no growth, less than a 1000. IMPRESSION AND PLAN: Chronic obstructive lung disease, history of lupus, stroke, anxiety disorder, and benzodiazepine dependant. Continue steroids. Continue antibiotic therapy. Inhaled bronchodilator. Gastric prophylaxis and deep venous thrombosis prophylaxis and fall precautions. We will increase clonidine patch to 0.3 mg for elevated blood pressure. This patient was seen and examined with Dr. Pollack. Discussed assessment and plan as described above. Thank you for this consult and we will followup with you. Jono Gresham APN Nicolle Pollack MD LINDA
[2018-02-22] MEDS: guaiFENesin DM 100 mg-10 mg/5 ml UD PO PRN (16:21)
[2018-02-22 16:53] VITALS: BP 131/81; PULSE 93; RESP 18; TEMP 98; O2SAT 97
--- NOTE | 2018-02-25 12:49 | PQF ---
PROVIDER RESPONSE TEXT: Moderate persistent REVIEWER QUERY TEXT: Asthma Specificity and Type Asthma is documented in the Medical Record. Please specify the type and severity of asthma and indic ate if this is associated with exacerbation or status asthmaticus. Such as: -- Mild intermittent -- Mild persistent -- Moderate persistent -- Severe persistent -- Exercise induced bronchospasm -- Cough variant asthma -- Other, please specify The patient's Clinical Indicators include: Please see below. Thank you. Query created by: Dorita Aparicio on 02/23/2018 5:52 PM Electronically signed by: Nicolle Pollack MD 02/25/2018 12:46 PM
== END 2018-02-22 17:58 | disposition home or self-care (01) | DRG 191 ==
LOC: ED 13:57 → ERH 15:30 → 3RSO 17:08
PROVIDERS: ADMIT Internal Medicine; ATTEND Internal Medicine
DX: J44.1 Chronic obstructive pulmonary disease with (acute) exacerbation (principal); Z68.42 Body mass index [BMI] 45.0-49.9, adult; J45.41 Moderate persistent asthma with (acute) exacerbation; Z86.73 Personal history of transient ischemic attack (TIA), and cerebral infarction without residual deficits; M32.9 Systemic lupus erythematosus, unspecified; Z79.51 Long term (current) use of inhaled steroids; Z79.899 Other long term (current) drug therapy; Z98.84 Bariatric surgery status; Z87.11 Personal history of peptic ulcer disease; Z79.52 Long term (current) use of systemic steroids; G89.4 Chronic pain syndrome; F32.9 Major depressive disorder, single episode, unspecified; F41.9 Anxiety disorder, unspecified; E66.9 Obesity, unspecified; F17.200 Nicotine dependence, unspecified, uncomplicated; F25.9 Schizoaffective disorder, unspecified; G47.30 Sleep apnea, unspecified; D64.9 Anemia, unspecified; D72.829 Elevated white blood cell count, unspecified; E83.39 Other disorders of phosphorus metabolism; E87.8 Other disorders of electrolyte and fluid balance, not elsewhere classified; K21.9 Gastro-esophageal reflux disease without esophagitis; N28.9 Disorder of kidney and ureter, unspecified; Z91.19 Patient's noncompliance with other medical treatment and regimen